=== PATIENT | male | born 1950 | race Caucasian/White ===

== ENCOUNTER 2022-10-01 06:43 | Outpatient (OUT) | payer MEDICARE, SELFPAY ==
--- NOTE | 2022-10-01 07:05 | XR_ITS ---
The [address] [address] Patient Name: CHANTEL BARBER MRN: [id number] date: 1950 Sex: M Assigned Patient Location: LAB Current Patient Location: LAB Accession/Order Number: [id number] Exam Date: 10/01/2022 07:10 Report Date: 10/01/2022 08:50 At the request of: OBI PACHECO Procedure: XR hip LT 2V w/ pelvis PROCEDURE: XR hip LT 2V w/ pelvis HISTORY: Left Hip Pain M25.552 , acute; no known injury COMPARISON: None. FINDINGS: BONES:No fracture, acute abnormality, or significant arthropathy. SOFT TISSUES:No visible soft tissue swelling. EFFUSION:None visible. OTHER: Negative. XR/XR hip LT 2V w/ pelvis IMPRESSION: 1. No acute bone abnormality. 2. Minimal degenerative changes. Electronically authenticated by: ADELA MORRISSEY Date: 10/01/2022 08:50
[2022-10-01 07:06] LABS: Basophils Absolute Auto 0.1 10^3/uL (0.0-0.1); Eosinophils Absolute Auto 0.6 10^3/uL (0.0-0.7); Eosinophils Percent Auto 8.9 % (0.9-7.0); Hemoglobin 14.5 g/dL (14.0-18.0); Immature Granulocytes Abs Auto 0.04 10^3/uL (0.00-0.03); Immature Granulocytes Pct Auto 0.6 % (0.0-0.5); Lymphocytes Absolute Auto 1.3 10^3/uL (1.2-3.8); Lymphocytes Percent Auto 19.9 % (20.5-60.0); Mean Corpuscular HGB Conc 32.2 g/dL (29.9-35.2); Mean Corpuscular Hemoglobin 29.6 pg (25.9-34.0); Mean Corpuscular Volume 91.8 fL (80.0-94.0); Mean Platelet Volume 9.1 fL (9.5-13.5); Monocytes Absolute Auto 0.6 10^3/uL (0.3-0.8); Monocytes Percent Auto 9.1 % (1.7-12.0); Neutrophils Absolute Auto 3.8 10^3/uL (1.4-6.5); Neutrophils Percent Auto 60.5 % (43.0-75.0); Platelet Count 246 10^3/uL (150-450); Red Cell Distribution Width 13.4 % (11.0-15.0); White Blood Count 6.3 10^3/uL (4.0-11.0)
[2022-10-01 07:48] LABS: Anion Gap 11.5; BUN Creatinine Ratio 17.9; Carbon Dioxide 29.7 mmol/L (21.0-32.0); Chloride 105 mmol/L (98-107); Chol HDL Ratio 5.1; Cholesterol 184 mg/dL (<=200); Estimated GFR (African America >60 (>=60); Estimated GFR (Non-African Ame >60 (>=60); Glucose 108 mg/dL (74-106); HDL Cholesterol 36 mg/dL (40-60); Potassium 4.2 mmol/L (3.5-5.1); Sodium 142 mmol/L (136-145); Thyroid Stimulating Hormone 4.106 uIU/mL (0.358-3.740); Triglycerides 172 mg/dL (<=150); VLDL CHOLESTEROL 34.4 mg/dL
== END 2022-10-01 06:44 | disposition home or self-care (01) ==
PROVIDERS: PCP Internal Medicine; Visit Provider Internal Medicine
DX: Z00.00 Encounter for general adult medical examination without abnormal findings (principal); E78.00 Pure hypercholesterolemia, unspecified; E06.3 Autoimmune thyroiditis; Z79.899 Other long term (current) drug therapy; M25.552 Pain in left hip
CPT/HCPCS: 36415; 73502; 80048; 80061; 84443; 85025

== ENCOUNTER 2023-07-15 06:46 | Outpatient (OUT) | payer MEDICARE, SELFPAY ==
[2023-07-15 08:26] LABS: Prostate Specific Antigen Dx 3.64 ng/mL (<=4.00)
== END 2023-07-15 06:47 | disposition home or self-care (01) ==
LOC: LAB 06:47
PROVIDERS: PCP Internal Medicine; Visit Provider Urology
DX: N40.2 Nodular prostate without lower urinary tract symptoms (principal); Z80.42 Family history of malignant neoplasm of prostate; N40.1 Benign prostatic hyperplasia with lower urinary tract symptoms; N52.9 Male erectile dysfunction, unspecified
CPT/HCPCS: 36415; 84153

== ENCOUNTER 2023-09-29 06:56 | Outpatient (OUT) | payer MEDICARE, SELFPAY ==
--- OUTSIDE RECORDS SUMMARY | 2023-09-29 07:00 | XMS_ITS | CCD ---
Author Organization [facility] Care Team Providers Care Helper [employer] [place] Name Role Phone GUILLERMO, DR CROCKER Primary Care Unavailable PALCAIOS ., DR VILLALTA Admitting Unavailable PALACIOS ., DR VILLALTA Attending Unavailable PALACIOS ., DR VILLALTA Consulting Unavailable BALL, DR CROCKER Consulting Unavailable BALL, DR CROCKER Primary Care Unavailable BALL, DR CROCKER Admitting Unavailable BALL, DR CROCKER Attending Unavailable BALL, DR CROCKER Consulting Unavailable BALL, DR CROCKER Primary Care Unavailable BALL, DR CROCKER Admitting Unavailable BALL, DR CROCKER Referring Unavailable BALL, DR CROCKER Attending Unavailable BALL, DR CROCKER Attending Unavailable BALL, DR CROCKER Consulting Unavailable BALL, DR CROCKER Primary Care Unavailable BALL, DR CROCKER Admitting Unavailable GUILLERMO, DAMIR Primary Care Physician [phone] Damir Li Unavailable PREET MINAYA Attending Unavailable PALACIOSStanley Attending Unavailable PALACIOS, Stanley Jama Attending Unavailable Ball Damir ALEXANDER Primary Care Provider [phone] DAMIR LI Primary Care Unavailable Allergies Allergy Classification Reported Allergen(s) Allergy Type Date of Onset Reaction(s) Facility (1 source) house dust allergenic extract Drug Allergy 1 [facility] Repository (4 sources) Dust; Translations: [Dust] Allergy to substance Sneezing (finding) [facility] (4 sources) Glucose; Translations: [glucose] Drug Allergy Sneezing (finding) [facility] Medications Current Medications Medication Drug Class(es) Dates Sig (Normalized) Sig (Original) acetaminophen 325 mg / HYDROcodone bitartrate 7.5 mg oral tablet (1 source) Opioid Agonist Start: 04-18-2022 take 1 tablet by mouth once [place] 325 mg-7.5 mg oral tablet 1 tab(s), Oral, Once, 1 tab(s), Refill(s) 0, Take 1 hour prior to procedure. Don't drive or operate machinery while taking this medication. Have a production truck driver to and from procedure., [id number], 185, cm, 04/18/22 8:40:00 EST, Height/Length Dos... Start Date: 04/18/22 Status: Ordered Albuterol (Eqv-ProAir HFA) 90 mcg/inh inhalation aerosol (3 sources) Start: 06-28-2020 take 2 puff(s) by mouth every six hours as needed Albuterol (Eqv-ProAir HFA) 90 mcg/inh inhalation aerosol INHALE 2 PUFFS BY MOUTH EVERY 6 HOURS NEEDED Start Date: 06/28/20 Status: Ordered Albuterol Sulfate 108 (90 Base) MCG/ACT (5 sources) Start: 11-21-2021 take 2 puff(s) by inhalation every six hours as needed Albuterol Sulfate 108 (90 Base) MCG/ACT 2 puffs as needed inhalation every 6 hours Nov, Active Priyanka Allergy 180 MG (2 sources) Start: 11-04-2022 take 1 tablet by mouth once daily Priyanka Allergy 180 MG 1 tablet Swallow whole with water; do not take with fruit juices. Orally Once a day for 30 days Oct, Active ciprofloxacin 500 mg oral tablet (1 source) Quinolone Antimicrobial Start: 04-18-2022 take 1 tablet by mouth twice daily Cipro 500 mg Tab 500 mg = 1 tab(s), Oral, BID, start 3 days prior to procedure., # 14 tab(s), Refills(s) 0, Pharmacy: [id number], 185, cm, 04/18/22 8:40:00 EST, Height/Length Dosing, 85.7, kg, 04/18/22 8:40:00 EST, Weight Dosing Start Date: 04/18/22 Status: Ordered Fluticasone Propion-Salmeterol (4 sources) Corticosteroid, beta2-Adrenergic Agonist Start: 07-15-2023 Fluticasone Propion-Salmetero l Active 1 INH INHALATION Twice daily July 15, 2023 12:00am Start: 11-04-2022 take 1 puff(s) by in halation twice daily Fluticasone-Salmeterol 250-50 MCG/ACT 1 puff Inhalation Twice a day for 30 days Oct, Active Fluticasone-Salm eterol 250-50 MCG/ACT INHALE 1 DOSE BY MOUTH TWICE DAILY FOR 30 DAYS for 30 Active levothyroxine sodium 0.112 mg oral tablet (15 sources) l-Thyroxine Start: 07-15-2023 take 1 tablet by mouth once daily Levothyroxine (Euthyrox) 112 mcg tablet Active 112 MCG PO Daily July 15, 2023 12:00am Start: 06-30-2022 take 1 tablet by stacy th once daily in the morning Euthyrox 112 MCG 1 tablet in the morning on an empty stomach Orally Once a day June, Active Start: 01-01-2022 take 1 tablet by stacy th once daily as needed Euthyrox 112mcg Euthyrox 112mcg, 1 Tablet daily on an empty stomach # 90, 01/01/2022, Ref. x1. Active oral daily on an empty stomach for 90 Dec, Not-Taking/PRN Start: 01-01-2022 take 1 tablet by stacy th once daily Euthyrox 112mcg Euthyrox 112mcg, 1 Tablet daily on an empty stomach # 90, 01/01/2022, Ref. x1. Active oral daily on an empty stomach for 90 Dec, Not-Taking Start: 10-04-2018 take 1 tablet by stacy th once daily levothyroxine 100 mcg (0.1 mg) Tab 100 microgram = 1 tab(s), Oral, Daily, Refills(s) 0 Start Date: 10/04/18 Status: Ordered take 1 tablet by stacy th once daily before breakfast Levothyroxine 50 MCG tablet Take 1 tablet by mouth every morning before breakfast. Active Levothyroxine So dium 112 MCG TAKE 1 TABLET BY MOUTH ONCE DAILY IN THE MORNING ON AN EMPTY STOMACH Orally Once a day for 90 days Active Multi Vitamin+ (3 sources) Start: 06-28-2020 Multi Vitamin+ Refill(s) 0 Start Date: 06/28/20 Status: Ordered omeprazole 40 mg delayed release oral capsule (16 sources) Proton Pump Inhibitor Start: 09-17-2023 take 1 capsule by mouth once daily at breakfast Omeprazole Active 0 .ROUTE .COMPLEX September 17, 2023 8:51am TAKE 1 CAPSULE BY MOUTH ONCE DAILY ON AN EMPTY STOMACH FOLLOWED IN 30 MINUTES BY BREAKFAST Start: 02-20-2021 End: 09-17-2023 take 40 mg by mouth once daily Omeprazole Discontinued 40 MG PO Daily July 15, 2023 12:00am September 17, 2023 8:51am predniSONE 20 mg oral tablet (3 sources) Start: 11-04-2022 predniSONE 20 MG 1 tablet Orally tid w/ food x 2 days then bid w/ food x 2 days then qd w/ food x 2 days for 6 days Oct, Active Scopolamine Base (1 source) Start: 09-28-2023 Scopolamine Base Active 1 PATCH TRANSDERML Every 72 hours 4 7 September 28, 2023 12:00am tadalafil 20 mg oral tablet (2 sources) Phosphodiesterase 5 Inhibitor Start: 04-18-2022 take 1 tablet by mouth every hour Cialis 20 mg Tab 20 mg = 1 tab(s), Oral, As Directed, Take one hour prior to sexual intercourse., # 30 tab(s), Refills(s) 6, Pharmacy: [id number], 185, cm, 04/18/22 8:40:00 EST, Height/Length Dosing, 85.7, kg, 04/18/22 8:40:00 EST, Weight Dosing Start Date: 04/18/22 Status: Ordered tamsulosin hydrochloride 0.4 mg oral capsule (10 sources) alpha-Adrenergic Vale Start: 01-17-2022 take 0.4 mg by mouth once daily Tamsulosin Active 0.4 MG PO Daily July 15, 2023 12:00am Completed/Discontinued Medications Medication Drug Class(es) Dates Sig (Normalized) Sig (Original) 200 actuat albuterol 0.09 mg/actuat dry powder inhaler (3 sources) beta2-Adrenergic Agonist Start: 07-15-2023 take 1 puff(s) by inhalation every six hours Albuterol Sulfate Active 2 PUFF INHALATION Every 6 hours 8.5 July 15, 2023 12:00am Start: 07-15-2023 End: 07-15-2023 Albuterol Sulfate Discontinu ed 2 INH INHALATION Every 6 hours 1 July 15, 2023 1:11pm July 15, 2023 5:55pm azithromycin 250 mg oral tablet (5 sources) Macrolide Antimicrobial Start: 01-17-2022 take 1 tablet by mouth once daily Azithromycin 250 MG azithromycin 250mg, 2 (two) tablet today followed by 1 daily # 6, 01/17/2022, No Refill. Active Oral today followed by 1 daily for 5 Jan, Not-Taking/PRN bacitracin 0.5 unt/mg topical ointment (1 source) Start: 09-02-2023 End: 09-02-2023 1 Application, Topical, ONCE, 1 dose, On Thu09/02/23 at 2300, Apply to wound with dressing fexofenadine hydrochloride 180 mg oral tablet (2 sources) Histamine-1 Receptor Antagonist Start: 07-15-2023 End: 09-28-2023 take 180 mg by mouth once daily Fexofenadine Discontinued 180 MG PO Daily July 15, 2023 12:00am September 28, 2023 8:41am Start: 11-04-2022 take 1 tablet by mouth once da marli Priyanka Allergy 180 MG 1 tablet Swallow whole with water; do not take with fruit juices. Orally Once a day for 30 days Oct, Active fluticasone propionate 0.05 mg/actuat metered dose nasal spray (4 sources) Corticosteroid Start: 07-15-2023 End: 09-28-2023 Fluticasone Propionate Discontinued 1 SPRAY INTRANASAL Daily July 15, 2023 12:00am September 28, 2023 8:41am Start: 11-04-2022 take 1 spray(s) nasa l route once daily Fluticasone Propionate 50 MCG/ACT 1 spray in each nostril Nasally Once a day for 30 days Oct, Active Start: 11-04-2022 take 1 spray(s) nasa l route once daily Fluticasone Propionate 50 MCG/ACT 1 spray in each nostril Nasally Once a day for 30 days Oct, Active Problems Problem Classification Problem Date Documented Da te Episodic/Chronic Asthma (17 sources) Mild intermittent asthma, uncomplicated; Translations: [Mild intermittent asthma] Chronic Disorders of lipid metabolism (9 sources) Pure hypercholesterolemi a, unspecified; Translations: [Hypercholesterolem ia] Onset: 11-14-2021 Chronic Esophageal disorders (4 sources) Gastro-esophageal reflux disease with esophagitis; Translations: [Gastro-esophageal reflux disease with esophagitis, without bleeding] 2023 Chronic Esophageal disorders (4 sources) Esophageal disorders; Translations: [Gastro-esophageal reflux disease with esophagitis, without bleeding] Genitourinary symptoms and ill-defined conditions (11 sources) Retention of urine; Translations: [Retention of urine, unspecified] Onset: 04-18-2022 Episodic Hyperplasia of prostate (20 sources) Benign prostatic hyperplasia with lower urinary tract symptoms; Translations: [Benign prostatic hypertrophy with outflow obstruction] Onset: 04-12-2022 Chronic Inflammatory conditions of male genital organs (3 sources) Chronic prostatitis 03-16-2020 Chronic Open wounds of extremities (3 sources) Laceration of lower limb; Translations: [Laceration without foreign body, left lower leg, initial encounter] Onset: 09-02-2023 09-02-2023 Episodic Other aftercare (2 sources) Other watermaster (current) drug therapy; Translations: [OTH PODIATRIC AIDE CURRENT DRUG THERAPY] Onset: 2021 Episodic Other and unspecified benign neoplasm (5 sources) Benign neoplasm of colon; Translations: [Benign neoplasm of descending colon] Episodic Other ear and sense organ disorders (1 source) Tinnitus; Translations: [Tinnitus, unspecified ear] 09-28-2023 Episodic Other ear and sense organ disorders (1 source) Tinnitus, unspecified ear; Translations: [Tinnitus, unspecified] 09-28-2023 Episodic Other gastrointestinal disorders (3 sources) Chronic constipation 02-20-2021 Episodic Other gastrointestinal disorders (3 sources) Hyperplastic polyp of intestine 09-06-2020 Episodic Other male genital disorders (6 sources) Male erectile dysfunction, unspecified; Translations: [Erectile dysfunction] Onset: 04-18-2022 Chronic Other male genital disorders (3 sources) Pain in penis 10-04-2018 Chronic Other male genital disorders (3 sources) Spermatocele 03-16-2020 Episodic Other nervous system disorders (1 source) Polyneuropathy; Translations: [Polyneuropathy, unspecified] 2023 Chronic Other nervous system disorders (1 source) Polyneuropathy, unspecified; Translations: [Unspecified hereditary and idiopathic peripheral neuropathy] 09-28-2023 Chronic Other non-traumatic joint disorders (1 source) Pain in left hip Episodic Other nutritional; endocrine; and metabolic disorders (3 sources) Body mass index 25-29 - overweight 06-28-2020 Episodic Other screening for suspected conditions (not mental disorders or infectious disease) (6 sources) Other specified abnormal findings of blood chemistry; Translations: [Raised prostate specific antigen] Onset: 11-13-2021 Episodic Other upper respiratory disease (3 sources) Allergic rhinitis due to pollen; Translations: [Allergic rhinitis due to pollen] Chronic Other upper respiratory disease (1 source) Allergic rhinitis due to pollen Chronic Residual codes; unclassified (1 source) Family history of malignant neoplasm of prostate; Translations: [FAMILY HX MALIG NEOPLASM PROSTATE] Onset: 04-16-2022 Episodic Residual codes; unclassified (3 sources) Family history of cancer; Translations: [Family history of malignant neoplasm of prostate] Onset: 04-18-2022 Episodic Residual codes; unclassified (3 sources) Family history of prostate cancer 04-18-2022 Episodic Thyroid disorders (20 sources) Autoimmune thyroiditis; Translations: [Hypothyroidism] Onset: 01-01-2022 Chronic Unclassified (3 sources) Finding of sensation of bladder 02-20-2021 Unclassified (3 sources) Patient encounter status 06-28-2020 Viral infection (3 sources) Herpes zoster 02-20-2021 Episodic Results Test Name Value Interpretation Reference Range Facility Ambulatory Visit Summaryon 0 07-20-2023 Ambulatory Visit Summary CHANTEL BARBER :1950 Visit Date:07/20/2023 Ambulatory Visit Instructions Your Diagnosis Elevated PSA Prostate nodule Family history of prostate cancer Benign prostatic hypertrophy with outflow obstruction Erectile dysfunction Your Care Team Attending Physician - Stanley PALACIOS MD Primary Care Physician - GUILLERMO ALEXANDER, DAMIR This Is Your Medications List tamsulosin (tamsulosin 0.4 mg Cap) Contact prescribing physician if questions or concerns albuterol (Albuterol (Eqv-ProAir HFA) 90 mcg/inh inhalation aerosol) levothyroxine (levothyroxine 100 mcg (0.1 mg) Tab) multivitamin (Multi Vitamin+) omeprazole (omeprazole 40 mg Cap-DR) Procedures Performed Transrectal biopsy of prostate using ultrasound (US) guidance (05/13/2022), Cystoscopy (01/09/2014), TURP - Transurethral resection of prostate (07/31/2011), Urodynamics (04/17/2011), Cystoscopy (03/21/2011), Tonsillectomy. Discharge Vitals Heart Rate (Peripheral) 72 Respiratory Rate 16 Blood Pressure 132/89 Height 185 cm Height 73 in Weight 88.6 kg Weight 194.92 lb BMI 25.89 What to do next Scheduled Follow-Up Appointments Thursday 8:45 AM EDT With: Stanley PALACIOS MD Where: [facility] [place] Normal [facility] Patient Educationon 07-20-19 24 Patient Education Oncology Prostate Cancer Screening Prostate cancer screening is testing that is done to check for the presence of prostate cancer in men. The prostate gland is a walnut-sized gland that is located below the bladder and in front of the rectum in males. The function of the prostate is to add fluid to semen during ejaculation. Prostate cancer is one of the most common types of cancer in men. Who should have prostate cancer screening? Screening recommendations vary based on age and other risk factors, as well as between the professional organizations who make the recommendations. In general, screening is recommended if: ? You are age 50 to 70 and have an average risk for prostate cancer. You should talk with your health care provider about your need for screening and how often screening should be done. Because most prostate cancers are slow growing and will not cause , screening in this age group is generally reserved for men who have a 10- to 15-year life expectancy. ? You are younger than age 50, and you have these risk factors: ? Having a father, brother, or uncle who has been diagnosed with prostate cancer. The risk is higher if your family member's cancer occurred at an early age or if you have multiple family members with prostate cancer at an early age. ? Being a male who is Black or is of [place] or sub-Saharan descent. In general, screening is not recommended if: ? You are younger than age 40. ? You are between the ages of 40 and 49 and you have no risk factors. ? You are 70 years of age or older. At this age, the risks that screening can cause are greater than the benefits that it may provide. If you are at high risk for prostate cancer, your health care provider may recommend that you have screenings more often or that you start screening at a younger age. How is screening for prostate cancer done? The recommended prostate cancer screening test is a blood test called the prostate-specific antigen (PSA) test. PSA is a protein that is made in the prostate. As you age, your prostate naturally produces more PSA. Abnormally high PSA levels may be caused by: ? Prostate cancer. ? An enlarged prostate that is not caused by cancer (benign prostatic hyperplasia, or BPH). This condition is very common in older men. ? A prostate gland infection (prostatitis) or urinary tract infection. ? Certain medicines such as male hormones (like testosterone) or other medicines that raise testosterone levels. A rectal exam may be done as part of prostate cancer screening to help provide information about the size of your prostate gland. When a rectal exam is performed, it should be done after the PSA level is drawn to avoid any effect on the results. Depending on the PSA results, you may need more tests, such as: ? A physical exam to check the size of your prostate gland, if not done as part of screening. ? Blood and imaging tests. ? A procedure to remove tissue samples from your prostate gland for testing (biopsy). This is the only way to know for certain if you have prostate cancer. What are the benefits of prostate cancer screening? ? Screening can help to identify cancer at an early stage, before symptoms start and when the cancer can be treated more easily. ? There is a small chance that screening may lower your risk of dying from prostate cancer. The chance is small because prostate cancer is a slow-growing cancer, and most men with prostate cancer from a different cause. What are the risks of prostate cancer screening? The main risk of prostate cancer screening is diagnosing and treating prostate cancer that would never have caused any symptoms or problems. This is called overdiagnosisand overtreatment. PSA screening cannot tell you if your PSA is high due to cancer or a different cause. A prostate biopsy is the only procedure to diagnose prostate cancer. Even the results of a biopsy may not tell you if your cancer needs to be treated. Slow-growing prostate cancer may not need any treatment other than monitoring, so diagnosing and treating it may cause unnecessary stress or other side effects. Questions to ask your health care provider ? When should I start prostate cancer screening? ? What is my risk for prostate cancer? ? How often do I need screening? ? What type of screening tests do I need? ? How do I get my test results? ? What do my results mean? ? Do I need treatment? Where to find more information ? The [place] [employer]: www.cancer.org ? [employer]: www.auanet.org Contact a health care provider if: ? You have difficulty urinating. ? You have pain when you urinate or ejaculate. ? You have blood in your urine or semen. ? You have pain in your back or in the area of your prostate. Summary ? Prostate cancer is a common type of cancer in men. The prostate gland is located below the bladder and in front of the rectum. This gland adds flu (more content not included)... Normal [facility] Reminderson 07-20-2023 Reminders - From: Paulina Colvin To: MELISSA Palacios; Sent: 07/20/2023 10:30:51 EDT Show up: 01/19/2024 09:30:00 EST Subject: PSA Reminder Message Pt needs repeat PSA in 6 mos (no OV). -If still elevated, will need to consider PSMA PET scan. Otherwise can f/u in 1 year w/ another PSA. Normal [facility] Urology Office/Clinic Noteon 07-20-2023 Urology Office/Clinic Note Chief Complaint 1yr PSA/LUCIE HPI Staff 1 year f/u with PSA. Dx: prostate nodule, family hx of prostate cancer (brother), BPH with obstruction and ED. PSA- 07/15/23 - 3.64 Negative TRUS Bx done 05/13/22 * Tamsulosin 0.4mg qd. Stopped taking Cialis. States he just stopped . Believes it was causing indigestion. Not interested in any other ED meds. Denies pain/burning and visible blood in urine. Denies complaints with urinary stream. History of Present Illness Tests reviewed: reviewed UA, PSA I have reviewed the previous health record information and history for this patient from Dr. Palacios. I have reviewed and verified the staff HPI to be accurate for this encounter. Review of Systems PHQ Score Initial Depression Screen Score: 0 SCORE ROS - Provider Constitutional: denies weight loss, denies hot flashes. Eyes: denies eye problems. Gastrointestinal: denies nausea, denies vomiting. Cardiovascular: denies chest pain or angina. Integumentary: no dryness Musculoskeletal: denies musculoskeletal symptoms. ENMT: denies otolaryngeal symptoms. Respiratory: no shortness of breath. Heme/Lymph: denies easy bleeding tendency, denies easy bruising tendency. Psychiatric: no confusion, no anxiety. Genitourinary: See HPI. Physical Exam Vitals & Measurements HR: 72(Peripheral) RR: 16 BP: 132/89 HT: 73 in HT: 185 cm WT: 88.6 kg WT: 194.92 lb BMI: 25.89 General Appearance: alert, no distress, well nourished, well developed male. Genitourinary: normal scrotum, normal testes, normal urethra, normal epididymis, normal vas deferens/spermatic cord. Flank Pain: none. Bladder: nonpalpable. Prostate: abnormal prostate, estimated weight 45 gms, yes hard nodule observed - indurated on right mid to base Assessment/Plan 1. Elevated PSA (R97.20: Elevated prostate specific antigen [PSA]) LUCIE 04/18/22 - indurated right side, larger than left. S/P TRUS/bx 05/13/22 - neg. PSA 02/07/20 - 2.69 04/05/21 - 2.98 04/12/22 - 2.86 07/15/23 - 3.64 LUCIE: 45g, indurated on right mid to base PSA has increased from prior but had a negative biopsy last year. Denies ever having a prostate MRI (pt is claustrophobic). Advised pt we will continue to monitor level for now. -6 mos w/ PSA. Will call pt with results. -If PSA increases again, will consider PSMA PET/CT scan. Otherwise f/u in 1 year w/ PSA. 2. Prostate nodule (N40.2: Nodular prostate without lower urinary tract symptoms) See #1. 3. Family history of prostate cancer (Z80.42: Family history of malignant neoplasm of prostate) Brother had prostate cancer 10 yrs ago, prostatectomy surgery. 4. Benign prostatic hypertrophy with outflow obstruction (N40.1: Benign prostatic hyperplasia with lower urinary tract symptoms) S/p TURP 2011. UA today negative for blood and infection. Taking Tamsulosin 0.4mg qd. Denies SEs. Not voicing any urinary habit complaints. -Cont Tamsulosin wo changes. Pt to call for refills. 5. Erectile dysfunction (N52.9: Male erectile dysfunction, unspecified) Stopped using Cialis 20mg prn Follow-up With When Contact Information RAMÓN HARDING, Stanley Jama, URL [facility] [address], [place] [id number]- [phone] Additional Instructions: repeat PSA in 6 mos (no OV), f/u in 1 year w/ repeat PSA Patient Education Prostate Cancer Screening I, Paulina Colvin, personally scribed for Dr. Palacios on 07/20/2023 10:28:11. . Documentation recorded by the scribe, Paulina Colvin, accurately reflects the services(s) I performed and decisions made by me. Authenticated by Dr. Palacios on 07/20/2023 10:31:12. Problem List/Past Medical History Ongoing Benign prostatic hypertrophy with outflow obstruction BMI 25.0-25.9,adult Chronic constipation Chronic prostatitis Elevated PSA Erectile dysfunction Family history of prostate cancer Feeling of incomplete bladder emptying Hyperplastic polyp of sigmoid colon Hypothyroidism Microscopic hematuria Penile pain Prostate nodule Screening for malignant neoplasm of colon Shingles Spermatocele Urinary retention Weak urine stream Historical No qualifying data Procedure/Surgical History Transrectal biopsy of prostate using ultrasound (US) guidance (05/13/2022), Cystoscopy (01/09/2014), TURP - Transurethral resection of prostate (07/31/2011), Urodynamics (04/17/2011), Cystoscopy (03/21/2011), Tonsillectomy. Medications Albuterol (Eqv-ProAir HFA) 90 mcg/inh inhalation aerosol levothyroxine 100 mcg (0.1 mg) Tab, 100 mcg= 1 tab(s), Oral, Daily Multi Vitamin+ omeprazole 40 mg Cap-DR, Oral, Daily tamsulosin 0.4 mg Cap, 0.4 mg= 1 cap(s), Oral, Daily, 3 refills Allergies Dust (Sneezing) SugarUp (Sneezing) Social History Alcohol Current, 1-2 times per year, 10/04/2018 Tobacco Never (less than 100 in lifetime) Tobacco Use:. Never Smokeless Tobacco Use:., 04/15/2021 Family History Cancer: Mother and Brother. Heart (more content not included)... Normal [facility] Comment on above: Result Comment: Elec tronically Signed By: Stanley PALACIOS MD.br\Date and Time Signed: 07/20/23 10:31 EDT\.br\Electronically Co-Signed By: Paulina Colvinbr\Date and Time Co-Signed: 07/20/23 10:28 EDT Lab Reportson 07-15-2023 Lab Reports [id number] Normal [facility] No Panel Informationon 07-14 Prostate Specific Antigen Total 3.64 ng/mL <=4.00 [facility] FREE T4on 01-01-2022 Free T4 [Mass/Vol] 0.98 ng/dL Normal 0.76-1.46 [facility] Comment on above: Performed By: #### F T4 #### [facility] [address] [place] [address] Dr. Sylvia Calix TSHon 01-01-2022 TSH 6.797 uIU/mL Critically high 0.358-3.740 [facility] Comment on above: Performed By: #### T SH #### [facility] [address] [place] [address] Dr. Sylvia Calix LIPID PROFILEon 11-13-2021 CHOL-HDL RATIO NORM SEE BELOW Normal [facility] Comment on above: Result Comment: 3.3 - 4.4 LOW RISK 4.4 - 7.1 AVERAGE RISK 7.1 - 11.0 MODERATE RISK >11.0 HIGH RISK Performed By: #### L IPID #### [facility] [address] [place] [address] Dr. Sylvia Calix Cholesterol [Mass/Vol] 199 mg/dL Normal <=200 [facility] Comment on above: Performed By: #### L IPID #### [facility] [address] [place] [address] Dr. Sylvia Calix Cholesterol in HDL [Mass/Vol] 37 mg/dL Critically low 40-60 [facility] Comment on above: Performed By: #### L IPID #### [facility] [address] [place] [address] Dr. Sylvia Calix Cholesterol in LDL [Mass/Vol] 127.6 mg/dL Normal [facility] Comment on above: Performed By: #### L IPID #### [facility] [address] [address] [address] Sylvia Calix Cholesterol.total/C holesterol in HDL [Mass ratio] 5.4 {ratio} Normal [facility] Comment on above: Performed By: #### L IPID #### [facility] [address] [address] [address] Sylvia Calix HDL NORMAL > or = 60 mg/dl - LO W CARDIOVASCULAR RISK <40 mg/dl - HIGH CARDIOVASCULAR RISK Normal [facility] Comment on above: Performed By: #### L IPID #### [facility] [address] [place] [address] Dr. Sylvia Calix LDL CALC NORMAL SEE BELOW Normal [facility] Comment on above: Result Comment: <100 mg/dl OPTIMAL 100 - 129 mg/dl NEAR OR ABOVE OPTIMAL 130 - 159 mg/dl BORDERLINE HIGH 160 - 189 mg/dl HIGH >190 mg/dl VERY HIGH Performed By: #### L IPID #### [facility] [address] [place] [address] Dr. Sylvia Calix Triglyceride [Mass/Vol] 172 mg/dL Critically high <=150 [facility] Comment on above: Performed By: #### L IPID #### [facility] [address] [place] [address] Dr. Sylvia Calix VLDL CALC 34.4 mg/dL Normal [facility] Comment on above: Performed By: #### L IPID #### [facility] [address] [place] [address] Dr. Sylvia Calix TSHon 11-13-2021 TSH 9.004 uIU/mL Critically high 0.358-3.740 [facility] Comment on above: Performed By: #### T SH #### [facility] [address] [place] [address] Dr. Sylvia Calix CBC AUTO DIFFon 09-25-2021 BASO # 0.1 103/ul Normal 0.0-0.1 [facility] Comment on above: Performed By: #### C BC #### [facility] [address] [address] [address] Sylvia Calix Basophils/100 WBC (Bld) 1.0 % Normal 0.2-2.0 [facility] Comment on above: Performed By: #### C BC #### [facility] [address] [place] [address] Dr. Sylvia Calix EO # 0.5 103/ul Normal 0.0-0.7 [facility] Comment on above: Performed By: #### C BC #### [facility] [address] [place] [address] Dr. Sylvia Calix Eosinophils/100 WBC (Bld) 7.3 % Critically high 0.9-7.0 [facility] Comment on above: Performed By: #### C BC #### [facility] [address] [place] [address] Dr. Sylvia Calix Erythrocyte distribution width (RBC) [Ratio] 13.4 % Normal 11.0-15.0 [facility] Comment on above: Performed By: #### C BC #### [facility] [address] [place] [address] Dr. Sylvia Calix Hematocrit (Bld) [Volume fraction] 45.9 % Normal 42.0-54.0 [facility] Comment on above: Performed By: #### C BC #### [facility] [address] [place] [address] Dr. Sylvia Calix Hemoglobin (Bld) [Mass/Vol] 15.0 g/dL Normal 14.0-18.0 [facility] Comment on above: Performed By: #### C BC #### [facility] [address] [place] [address] Dr. Sylvia Calix IG # 0.04 10e3/ul Critically high 0.00-0.03 [facility] Comment on above: Performed By: #### C BC #### [facility] [address] [place] [address] Dr. Sylvia Calix IG % 0.6 % Critically high 0.0-0.5 [facility] Comment on above: Performed By: #### C BC #### [facility] [address] [place] [address] Dr. Sylvia Calix LYMPH # 1.5 103/ul Normal 1.2-3.8 [facility] Comment on above: Performed By: #### C BC #### [facility] [address] [place] [address] Dr. Sylvia Calix Lymphocytes/100 WBC (Bld) 24.3 % Normal 20.5-60.0 [facility] Comment on above: Performed By: #### C BC #### [facility] [address] [place] [address] Dr. Sylvia Calix MANUAL DIFF REQ NO Normal [facility] Comment on above: Performed By: #### C BC #### [facility] [address] [place] [address] Dr. Sylvia Calix MCH (RBC) [Entitic mass] 30.4 pg Normal 25.9-34.0 [facility] Comment on above: Performed By: #### C BC #### [facility] [address] [place] [address] Dr. Sylvia Calix MCHC (RBC) [Mass/Vol] 32.7 g/dL Normal 29.9-35.2 [facility] Comment on above: Performed By: #### C BC #### [facility] [address] [place] [address] Dr. Sylvia Calix MCV (RBC) [Entitic vol] 93.1 fL Normal 80.0-94.0 [facility] Comment on above: Performed By: #### C BC #### [facility] [address] [place] [address] Dr. Sylvia Calix MONO # 0.5 103/ul Normal 0.3-0.8 [facility] Comment on above: Performed By: #### C BC #### [facility] [address] [place] [address] Dr. Sylvia Calix Monocytes/100 WBC (Bld) 7.8 % Normal 1.7-12.0 [facility] Comment on above: Performed By: #### C BC #### [facility] [address] [address] [address] Sylvia Calix NEUT # 3.7 103/ul Normal 1.4-6.5 [facility] Comment on above: Performed By: #### C BC #### [facility] [address] [address] [address] Sylvia Calix Neutrophils/100 WBC (Bld) 59.0 % Normal 43.0-75.0 [facility] Comment on above: Performed By: #### C BC #### [facility] [address] [address] [address] Sylvia Calix Platelet mean volume (Bld) [Entitic vol] 9.3 fL Critically low 9.5-13.5 [facility] Comment on above: Performed By: #### C BC #### [facility] [address] [place] [address] Dr. Sylvia Calix PLT 244 103/ul Normal 150-450 [facility] Comment on above: Performed By: #### C BC #### [facility] [address] [place] [address] Dr. Sylvia Calix RBC 4.93 106/ul Normal 4.70-6.10 [facility] Comment on above: Performed By: #### C BC #### [facility] [address] [place] [address] Dr. Sylvia Calix WBC 6.3 103/ul Normal 4.0-11.0 [facility] Comment on above: Performed By: #### C BC #### [facility] [address] [place] [address] Dr. Sylvia Calix LIPID PROFILEon 09-25-2021 CHOL-HDL RATIO NORM SEE BELOW Normal [facility] Comment on above: Result Comment: 3.3 - 4.4 LOW RISK 4.4 - 7.1 AVERAGE RISK 7.1 - 11.0 MODERATE RISK >11.0 HIGH RISK Performed By: #### L IPID, TSH, BMP #### [facility] [address] [place] [address] Dr. Sylvai Calix Cholesterol [Mass/Vol] 198 mg/dL Normal <=200 [facility] Comment on above: Performed By: #### L IPID, TSH, BMP #### [facility] [address] [address] [address] Sylvia Calix Cholesterol in HDL [Mass/Vol] 34 mg/dL Critically low 40-60 [facility] Comment on above: Performed By: #### L IPID, TSH, BMP #### [facility] [address] [address] [address] Sylvia Calix Cholesterol in LDL [Mass/Vol] 132.0 mg/dL Normal [facility] Comment on above: Performed By: #### L IPID, TSH, BMP #### [facility] [address] [address] [address] Sylvia Calix Cholesterol.total/C holesterol in HDL [Mass ratio] 5.8 {ratio} Normal [facility] Comment on above: Performed By: #### L IPID, TSH, BMP #### [facility] [address] [address] [address] Sylvia Calix HDL NORMAL > or = 60 mg/dl - LO W CARDIOVASCULAR RISK <40 mg/dl - HIGH CARDIOVASCULAR RISK Normal [facility] Comment on above: Performed By: #### L IPID, TSH, BMP #### [facility] [address] [address] [address] Sylvia Calix LDL CALC NORMAL SEE BELOW Normal [facility] Comment on above: Result Comment: <100 mg/dl OPTIMAL 100 - 129 mg/dl NEAR OR ABOVE OPTIMAL 130 - 159 mg/dl BORDERLINE HIGH 160 - 189 mg/dl HIGH >190 mg/dl VERY HIGH Performed By: #### L IPID, TSH, BMP #### [facility] [address] [address] [address] Sylvia Calix Triglyceride [Mass/Vol] 160 mg/dL Critically high <=150 [facility] Comment on above: Performed By: #### L IPID, TSH, BMP #### [facility] [address] [address] [address] Sylvia Calix VLDL CALC 32.0 mg/dL Normal [facility] Comment on above: Performed By: #### L IPID, TSH, BMP #### [facility] [address] [place] [address] Dr. Sylvia Calix PROF CHEM 8 (BAS METB)on Anion gap [Moles/Vol] 13.8 mmol/L Normal [facility] Comment on above: Performed By: #### L IPID, TSH, BMP #### [facility] [address] [place] [address] Dr. Sylvia Calix Calcium [Mass/Vol] 9.0 mg/dL Normal 8.5-10.1 [facility] Comment on above: Performed By: #### L IPID, TSH, BMP #### [facility] [address] [place] [address] Dr. Sylvia Calix Chloride [Moles/Vol] 106 mmol/L Normal 98-107 [facility] Comment on above: Performed By: #### L IPID, TSH, BMP #### [facility] [address] [place] [address] Dr. Sylvia Calix CO2 [Moles/Vol] 27.6 mmol/L Normal 21.0-32.0 [facility] Comment on above: Performed By: #### L IPID, TSH, BMP #### [facility] [address] [place] [address] Dr. Sylvia Calix Creatinine [Mass/Vol] 1.15 mg/dL Normal 0.70-1.30 [facility] Comment on above: Performed By: #### L IPID, TSH, BMP #### [facility] [address] [place] [address] Dr. Sylvia Calix EGFR-AF IRAQI >60 Normal >=60 [facility] Comment on above: Performed By: #### L IPID, TSH, BMP #### [facility] [address] [place] [address] Dr. Sylvia Calix EGFR-NON AF IRAQI >60 Normal >=60 [facility] Comment on above: Performed By: #### L IPID, TSH, BMP #### [facility] [address] [place] [address] Dr. Sylvia Calix Glucose [Mass/Vol] 103 mg/dL Normal 74-106 [facility] Comment on above: Performed By: #### L IPID, TSH, BMP #### [facility] [address] [place] [address] Dr. Sylvia Calix Potassium [Moles/Vol] 4.4 mmol/L Normal 3.5-5.1 [facility] Comment on above: Performed By: #### L IPID, TSH, BMP #### [facility] [address] [place] [address] Dr. Sylvia Calix Sodium [Moles/Vol] 143 mmol/L Normal 136-145 [facility] Comment on above: Performed By: #### L IPID, TSH, BMP #### [facility] [address] [place] [address] Dr. Sylvia Calix Urea nitrogen [Mass/Vol] 20.0 mg/dL Critically high 7.0-18.0 [facility] Comment on above: Performed By: #### L IPID, TSH, BMP #### [facility] [address] [place] [address] Dr. Sylvia Calix Urea nitrogen/Creatinine [Mass ratio] 17.4 mg/mg Normal [facility] Comment on above: Performed By: #### L IPID, TSH, BMP #### [facility] [address] [place] [address] Dr. Sylvia Claix TSHon 09-25-2021 TSH 6.272 uIU/mL Critically high 0.358-3.740 [facility] Comment on above: Performed By: #### L IPID, TSH, BMP #### [facility] [address] [place] [address] Dr. Sylvia Calix Vital Signs Date Time Vital Sign Value Performing Clinician Facility 09-28-2023 08:43-0400 Diastolic blood pressure 81 mm[Hg] [facility] 09-28-2023 08:43-0400 Heart rate 59 /min [facility] 09-28-2023 08:43-0400 Respiratory rate 12 /min [facility] 09-28-2023 08:43-0400 Systolic blood pressure 124 mm[Hg] [facility] 09-02-2023 22:05-0400 Body temperature 97.9 [degF] Damir Ball DO Work Phone: [facility] 09-02-2023 22:05-0400 Diastolic blood pressure 93 mm[Hg] Damir Ball DO Work Phone: [facility] 09-02-2023 22:05-0400 Heart rate 71 /min Damir Ball DO Work Phone: [facility] 09-02-2023 22:05-0400 Respiratory rate 17 /min Damir Ball DO Work Phone: [facility] 09-02-2023 22:05-0400 SaO2% (BldA) [Mass fraction] 98 % Damir Ball DO Work Phone: [facility] 09-02-2023 22:05-0400 Systolic blood pressure 177 mm[Hg] Damir Ball DO Work Phone: [facility] 09-02-2023 22:02-0400 Body height 185.4 cm Damir Ball DO Work Phone: [facility] 09-02-2023 22:02-0400 Body mass index (BMI) [Ratio] 25.73 kg/m2 Damir Ball DO Work Phone: [facility] 09-02-2023 22:02-0400 Body weight 88.45 kg Damir Ball DO Work Phone: [facility] 07-20-2023 09:57-0400 Blood Pressure Location Stanley PALACIOS [facility] 07-20-2023 09:57-0400 Diastolic blood pressure 89 mm[Hg] Stanley PALACIOS [facility] 07-20-2023 09:57-0400 Heart rate 72 /min Stanley PALACIOS [facility] 07-20-2023 09:57-0400 Respiratory rate 16 /min Stanley PALACIOS [facility] 07-20-2023 09:57-0400 Systolic blood pressure 132 mm[Hg] Stanley PALACIOS [facility] 11-04-2022 08:45-0400 Body height 185.42 cm Damir Ball Other [employer] Other 11-04-2022 08:45-0400 Body mass index (BMI) [Ratio] 25.49 kg/m2 Damir Ball Other [employer] Other 11-04-2022 08:45-0400 Body weight 87.64 kg Damir Ball Other [employer] Other 11-04-2022 08:45-0400 Diastolic blood pressure 87 mm[Hg] Damir Ball Other [employer] Other 11-04-2022 08:45-0400 Respiratory rate 12 /min Damir Ball Other [employer] Other 11-04-2022 08:45-0400 SaO2% (BldA) [Mass fraction] 96 % Damir Ball Other [employer] Other 11-04-2022 08:45-0400 Systolic blood pressure 148 mm[Hg] Damir Ball Other [employer] Other 09-24-2022 14:00-0400 Body height 185.42 cm Damir Ball Other [employer] Other 09-24-2022 14:00-0400 Body mass index (BMI) [Ratio] 25.59 kg/m2 Damir Ball Other [employer] Other 09-24-2022 14:00-0400 Body weight 88 kg Damir Li Other [facility] [employer] Other 09-24-2022 14:00-0400 Diastolic blood pressure 90 mm[Hg] Damir Li Other [facility] [employer] Other 09-24-2022 14:00-0400 Systolic blood pressure 133 mm[Hg] Damir Li Other [facility] [employer] Other 05-30-2022 09:20-0400 Blood Pressure Location Stanley PALACIOS [facility] 05-30-2022 09:20-0400 Diastolic blood pressure 80 mm[Hg] Stanley PALACIOS [facility] 05-30-2022 09:20-0400 Heart rate 71 /min Stanley PALACIOS [facility] 05-30-2022 09:20-0400 Respiratory rate 16 /min Stanley PALACIOS [facility] 05-30-2022 09:20-0400 Systolic blood pressure 122 mm[Hg] Stanley PALACIOS [facility] 04-18-2022 08:33-0500 Blood Pressure Location Stanley PALACIOS [facility] 04-18-2022 08:33-0500 Diastolic blood pressure 81 mm[Hg] Stanley PALACIOS [facility] 04-18-2022 08:33-0500 Heart rate 72 /min Stanley PALACIOS [facility] 04-18-2022 08:33-0500 Respiratory rate 16 /min Stanley PALACIOS [facility] 04-18-2022 08:33-0500 Systolic blood pressure 128 mm[Hg] Stanley PALACIOS [facility] Encounters Encounter Date Encounter Type Care Provider Facility Start: 07-25-2024 ambulatory Stanley PALACIOS Facili ty:[facility] Start: 09-28-2023 End: 09-28-2023 ambulatory [facility] Work Phone: Start: 09-28-2023 End: 09-28-2023 Patient encounter procedure [facility] Work Phone: Start: 09-02-2023 End: 09-02-2023 Emergency department patient visit DAMIR LI [facility] Start: 07-20-2023 End: 07-20-2023 ambulatory Stanley PALACIOS Facility:[facility] Start: 07-20-2023 End: 07-20-2023 Patient encounter procedure Stanley PALACIOS [facility] Start: 07-15-2023 Non-patient / Non-visit [facility] Work Phone: Start: 05-19-2023 End: 05-19-2023 ambulatory PREET MINAYA Not Available Start: 03-23-2023 End: 03-23-2023 ambulatory Damir Li Other [employer] Other Start: 03-23-2023 Telephone encounter Damir [facility] Start: 12-26-2022 End: 12-26-2022 ambulatory Damir Li Other [employer] Other Start: 12-26-2022 Telephone encounter Damir [facility] Start: 11-04-2022 End: 11-04-2022 ambulatory Damir Li Other [employer] Other Start: 11-04-2022 Office outpatient vi sit 15 minutes Damir Li [facility] Start: 10-02-2022 End: 10-02-2022 ambulatory Damir Li Other [employer] Other Start: 10-02-2022 Telephone encounter Damir Li [facility] Start: 09-24-2022 End: 09-24-2022 ambulatory Damir Guillermo Other [employer] Other Start: 09-24-2022 Patient encounter procedure Damir Li [facility] Start: 05-30-2022 End: 05-30-2022 Patient encounter procedure Stanley PALACIOS [facility] Start: 04-18-2022 End: 04-18-2022 Patient encounter procedure Stanley PALACIOS [facility] Start: 04-12-2022 End: 04-13-[address] DAMIR LI Facility:[facility] Start: 01-01-2022 End: 01-02-[address] DAMIR LI Facility:[facility] Start: 11-13-2021 End: 11-14-[address] DAMIR LI Facility:[facility] Start: 09-25-2021 End: [address] DAMIR LI Facility:[facility] Procedures Date Procedure Procedure Detail Performing Clinician Start: 05-13-2022 Transrectal biopsy o f prostate using ultrasound guidance Stanley PALACIOS Start: 04-12-[address] MITCHELL IN [place] Comment on above: Performed By: #### P SAD #### [facility] [address] [place] [address] Dr. Sylvia Calix Start: 01-09-2014 Cystoscopy Stanley LANDON Start: 07-31-2011 Transurethral prostatectomy Stanley PALACIOS Start: 04-17-2011 Urodynamic studies Sarahana camarillochencho RAMÓN Start: 03-21-2011 Cystoscopy Stanley JEFF LANDON Tonsillectomy Stanley RAMÓN Plan of Treatment Date Care Activity Detail Author Start: 09-01-2033 Tetanus vaccination TETANUS [facility] Start: 10-18-2023 Influenza vaccination INFLUENZA VACC INE (#1) [facility] Start: 10-17-2022 COVID-19 VACCINE ( season) COVID-19 VACCINE ( season) [facility] Start: 03-31-2014 Screening for malign ant neoplasm of colon COLORECTAL CANCER SCREENING DISCUSSION [facility] Start: 09-25-2001 Prostate specific an tigen measurement PROSTATE CANCER SCREENING DISCUSSION [facility] Start: 09-25-2001 Zoster vaccine hzv l savanah for subcutaneous use ZOSTER (SHINGLES) VACCINE (1 of 2) [facility] Start: 1991 Lipid panel LIPID SCREENING [facility] Start: 1950 Hepatitis C screening HEPATITI S C VIRUS SCREENING [facility] Start: 1950 Thyroid stimulating hormone measurement TSH [facility] Comprehensive metabo lic 2000 panel - Serum or Plasma [facility] Immunizations Immunization Date Immunization Notes Care Provider Fa cility 09-02-2023 tetanus toxoid, redu fercho diphtheria toxoid, and acellular pertussis vaccine, adsorbed Damir Li DO Work Phone: [facility] 09-24-2022 Prevnar 20 Damir Li Other [facility] 04-23-2020 SARS-CoV-2 (COVID-19 ) mRNA BNT-162b2 vax Stanley PALACIOS [facility] [place] 04-16-2020 SARS-CoV-2 (COVID-19 ) Ad26 vaccine, recombinant Stanley PALACIOS [facility] Comment on above: Result Comment: dupl icate 04-16-2020 SARS-CoV-2 (COVID-19 ) [id number] vaccine Stanley PALACIOS [facility] 09-29-2019 pneumococcal polysaccharide vaccine, 23 valent Damir Li Other [facility] 08-01-2019 pneumococcal conjuga te vaccine, 13 valent Stanley PALACIOS [facility] 02-11-2018 pneumococcal conjuga te vaccine, 13 valent Stanley PALACIOS [facility] 03-04-2013 pneumococcal polysaccharide vaccine, 23 valent Stanley PALACIOS [facility] 03-04-2013 tetanus toxoid, redu fercho diphtheria toxoid, and acellular pertussis vaccine, adsorbed Stanley PALACIOS [facility] 02-16-2002 tetanus toxoid, redu fercho diphtheria toxoid, and acellular pertussis vaccine, adsorbed Stanley PALACIOS [facility] Payers Date Payer Category Payer Medicare MEDICARE ANTHEM HMO OR PPO MEDICARE [facility] HMO OR PPO [id number] 2023-Present [address] [place] [address] [id number] 1959 Unknown [id number] 1950 Unknown [id number] 1951 Unknown [id number] 1951 Unknown [id number] 1951 Unknown [id number] 1951 Unknown [id number] 1950 Unknown [id number] 1950 Unknown [id number] 1950 Unknown [id number] Social History Date Type Detail Facility Start: 04-15-2021 End: 09-02-2023 Tobacco smoking status Never smoked tobacco (finding) [facility] Tobacco smoking status Never [facility] Sex Assigned At Male [facility] Start: 09-02-2023 Tobacco use and exposure Smokeless tobacco non-user [facility] [facility] Start: 09-02-2023 Alcoholic beverage intake Ex-drinker (finding) [facility] Start: 1950 Sex assigned at Not on file A [facility] Start: 1950 Sex Assigned At Male [facility] Functional Status Date Assessment Result Facility 07-20-2023 Functional Status N/A [facility] 05-30-2022 Functional Status N/A [facility] 04-18-2022 Functional Status N/A [facility] Clinical Notes 04-18-2022 to 09-02-2023 Katelynn Webster RN - 09/02/2023 10:37 PM ASAFTKatelynn Webster RN - 09/02/2023 10:37 PM JULEE Colin - 09/02/2023 10:32 PM Meryl Doherty RN - 09/02/2023 10:10 PM EDT Note Date & Type Note Facility 09-02-2023 Emergency department Note Superficial laceration pavon, no active bleeding. Cleansed with hibicleanse and water, bacitracin applied. Dressed with telfa and kerlix. [facility] 09-02-2023 Emergency department Note Superficial laceration pavon, no active bleeding. Cleansed with hibicleanse and water, bacitracin applied. Dressed with telfa and kerlix. Images from the original note were not included. Emergency Department Report [facility] EMERGENCY DEPARTMENT Service Date:.09/02/23 PCP: No primary care provider on file. Chief Complaint: Chief Complaint Patient presents with Laceration Patient to ED with laceration from a nail sticking out of board to left leg. Bleeding is controlled at this time. Patient is unsure if he is UTD on tetanus HPI Chantel Barber is a 72 y.o. male presents to the ED today due to laceration. Patient was a laceration on his left lower leg. States it he cut his leg on a exposed nail. He has been unaware of when his last tetanus shot was. Bleeding is controlled. Review of Systems: Review of Systems Constitutional: Negative. HENT: Negative. Eyes: Negative. Respiratory: Negative. Cardiovascular: Negative. Gastrointestinal: Negative. Endocrine: Negative. Genitourinary: Negative. Musculoskeletal: Negative. Skin: Positive for wound. Allergic/Immunologic: Negative. Neurological: Negative. Hematological: Negative. Psychiatric/Behavioral: Negative. Past Medical History: No past medical history on file. Past Surgical History: No past surgical history on file. Allergies: No Known Allergies Medications: Patient's Medications New Prescriptions No medications on file Previous Medications LEVOTHYROXINE 50 MCG TABLET Take 1 tablet by mouth every morning before breakfast. OMEPRAZOLE [address] CAPSULE Take 1 capsule by mouth daily. TAMSULOSIN HCL 0.4 MG CAPSULE Take 1 capsule by mouth daily. Modified Medications No medications on file Discontinued Medications No medications on file Family History: History reviewed. No pertinent family history. Social History: Social History Socioeconomic History Marital status: Not on file Spouse name: Not on file Number of children: Not on file Years of education: Not on file Highest education level: Not on file Occupational History Not on file Tobacco Use Smoking status: Never Smokeless tobacco: Never Vaping Use Vaping status: Never Used Substance and Sexual Activity Alcohol use: Not Currently Drug use: Not Currently Sexual activity: Not Currently Other Topics Concern Not on file Social History Narrative Not on file Social Determinants of Health Financial Resource Strain: Not on file Food Insecurity: Not on file Transportation Needs: Not on file Physical Activity: Not on file Stress: Not on file Social Connections: Not on file Intimate Partner Violence: Not on file Housing Stability: Not on file Physical Exam: Physical Exam Vitals and nursing note reviewed. Constitutional: General: He is not in acute distress. Appearance: Normal appearance. He is not ill-appearing. HENT: Head: Normocephalic and atraumatic. Eyes: Extraocular Movements: Extraocular movements intact. Conjunctiva/sclera: Conjunctivae normal. Pupils: Pupils are equal, round, and reactive to light. Cardiovascular: Rate and Rhythm: Normal rate. Pulses: Normal pulses. Pulmonary: Effort: Pulmonary effort is normal. No respiratory distress. Breath sounds: Normal breath sounds. Musculoskeletal: Cervical back: Normal range of motion. Skin: General: Skin is warm and dry. Capillary Refill: Capillary refill takes less than 2 seconds. Comments: Three laceration/abrasions to the anterior portion of the lower left leg. Total length of all lacerations combined is approximately 4 cm. This is divided amongst the 3 individual abrasions/lacerations. Bleeding is controlled. These are superficial and do not require closure. Neurological: General: No focal deficit present. Mental Status: He is alert and oriented to person, place, and time. Psychiatric: Mood and Affect: Mood normal. Thought Content: Thought content normal. Judgment: Judgment normal. Vital Signs During ED Visit Patient Vitals for the past 24 hrs: BP Temp Temp src Pulse Resp SpO2 Height Weight 09/02/23 2205 (!) 177/93 97.9 F (36.6 C) Oral 71 17 98 % -- -- 09/02/232201 -- -- -- -- -- -- 1.854 m (6' 1 ) 88.5 kg (195 lb) Orders/Results: Orders Placed This Encounter Dxvpmev-Pyaukj-Hzdxh Pertussis (BOOSTRIX) syringe 0.5 mL Bacitracin ointment 1 Application No results found for this or any previous visit. Radiographic Imaging No orders to display Procedures: Procedures Moderate Sedation Procedure: No ED Summary/MDM Laceration of the left lower extremity. Area was cleaned with Hibiclens saline scrub by nursing staff. Wound was evaluated. Wound is superficial in nature and does not require primary wound closure. Advised patient to keep area dry and clean monitor for infection. Bacitracin dressing was applied by nursing staff. Patient was Tdap was updated in the emergency room. He was alert oriented stable in no acute distress in his discharged home. Clinical Impression: 1. Laceration of left lower extremity, initial encounter No follow-ups on file. New Prescriptions No medications on file Discontinued Medications No medications on file An After Visit Summary was printed and given to the patient with above information. . . Willie Lau, ERASMO-INTERNET MARKETING STRATEGIST 09/02/23 2237 Patient placed back in waiting room until a room is available. Patient advised to notify registration with any changes or worsening condition/symptoms. Patient verbalized understanding and returned to waiting area in stable condition. documented in this encounter [facility] 09-02-2023 Physician Emergency department Note Images from the original note were not included. Emergency Department Report [facility] EMERGENCY DEPARTMENT Service Date:.09/02/23 PCP: No primary care provider on file. Chief Complaint: Chief Complaint Patient presents with Laceration Patient to ED with laceration from a nail sticking out of board to left leg. Bleeding is controlled at this time. Patient is unsure if he is UTD on tetanus HPI Chantel Barber is a 72 y.o. male presents to the ED today due to laceration. Patient was a laceration on his left lower leg. States it he cut his leg on a exposed nail. He has been unaware of when his last tetanus shot was. Bleeding is controlled. Review of Systems: Review of Systems Constitutional: Negative. HENT: Negative. Eyes: Negative. Respiratory: Negative. Cardiovascular: Negative. Gastrointestinal: Negative. Endocrine: Negative. Genitourinary: Negative. Musculoskeletal: Negative. Skin: Positive for wound. Allergic/Immunologic: Negative. Neurological: Negative. Hematological: Negative. Psychiatric/Behavioral: Negative. Past Medical History: No past medical history on file. Past Surgical History: No past surgical history on file. Allergies: No Known Allergies Medications: Patient's Medications New Prescriptions No medications on file Previous Medications LEVOTHYROXINE 50 MCG TABLET Take 1 tablet by mouth every morning before breakfast. OMEPRAZOLE [address] CAPSULE Take 1 capsule by mouth daily. TAMSULOSIN HCL 0.4 MG CAPSULE Take 1 capsule by mouth daily. Modified Medications No medications on file Discontinued Medications No medications on file Family History: History reviewed. No pertinent family history. Social History: Social History Socioeconomic History Marital status: Not on file Spouse name: Not on file Number of children: Not on file Years of education: Not on file Highest education level: Not on file Occupational History Not on file Tobacco Use Smoking status: Never Smokeless tobacco: Never Vaping Use Vaping status: Never Used Substance and Sexual Activity Alcohol use: Not Currently Drug use: Not Currently Sexual activity: Not Currently Other Topics Concern Not on file Social History Narrative Not on file Social Determinants of Health Financial Resource Strain: Not on file Food Insecurity: Not on file Transportation Needs: Not on file Physical Activity: Not on file Stress: Not on file Social Connections: Not on file Intimate Partner Violence: Not on file Housing Stability: Not on file Physical Exam: Physical Exam Vitals and nursing note reviewed. Constitutional: General: He is not in acute distress. Appearance: Normal appearance. He is not ill-appearing. HENT: Head: Normocephalic and atraumatic. Eyes: Extraocular Movements: Extraocular movements intact. Conjunctiva/sclera: Conjunctivae normal. Pupils: Pupils are equal, round, and reactive to light. Cardiovascular: Rate and Rhythm: Normal rate. Pulses: Normal pulses. Pulmonary: Effort: Pulmonary effort is normal. No respiratory distress. Breath sounds: Normal breath sounds. Musculoskeletal: Cervical back: Normal range of motion. Skin: General: Skin is warm and dry. Capillary Refill: Capillary refill takes less than 2 seconds. Comments: Three laceration/abrasions to the anterior portion of the lower left leg. Total length of all lacerations combined is approximately 4 cm. This is divided amongst the 3 individual abrasions/lacerations. Bleeding is controlled. These are superficial and do not require closure. Neurological: General: No focal deficit present. Mental Status: He is alert and oriented to person, place, and time. Psychiatric: Mood and Affect: Mood normal. Thought Content: Thought content normal. Judgment: Judgment normal. Vital Signs During ED Visit Patient Vitals for the past 24 hrs: BP Temp Temp src Pulse Resp SpO2 Height Weight 09/02/23 2205 (!) 177/93 97.9 F (36.6 C) Oral 71 17 98 % -- -- 09/02/23 2202 -- -- -- -- -- -- 1.854 m (6' 1 ) 88.5 kg (195 lb) Orders/Results: Orders Placed This Encounter Erhaeue-Lgxjaq-Yevcv Pertussis (BOOSTRIX) syringe 0.5 mL Bacitracin ointment 1 Application No results found for this or any previous visit. Radiographic Imaging No orders to display Procedures: Procedures Moderate Sedation Procedure: No ED Summary/MDM Laceration of the left lower extremity. Area was cleaned with Hibiclens saline scrub by nursing staff. Wound was evaluated. Wound is superficial in nature and does not require primary wound closure. Advised patient to keep area dry and clean monitor for infection. Bacitracin dressing was applied by nursing staff. Patient was Tdap was updated in the emergency room. He was alert oriented stable in no acute distress in his discharged home. Clinical Impression: 1. Laceration of left lower extremity, initial encounter No follow-ups on file. New Prescriptions No medications on file Discontinued Medications No medications on file An After Visit Summary was printed and given to the patient with above information. . . Willie Lau APRN-GURMEET 09/02/23 2237 [facility] 09-02-2023 Emergency department Note Patient placed back in waiting room until a room is available. Patient advised to notify registration with any changes or worsening condition/symptoms. Patient verbalized understanding and returned to waiting area in stable condition. [facility] 07-20-2023 Hospital Discharge instructions Patient Education 07/20/2023 10:26:50 Prostate Cancer Screening Prostate Cancer Screening Prostate cancer screening is testing that is done to check for the presence of prostate cancer in men. The prostate gland is a walnut-sized gland that is located below the bladder and in front of the rectum in males. The function of the prostate is to add fluid to semen during ejaculation. Prostate cancer is one of the most common types of cancer in men. Who should have prostate cancer screening? Screening recommendations vary based on age and other risk factors, as well as between the professional organizations who make the recommendations. In general, screening is recommended if: You are age 50 to 70 and have an average risk for prostate cancer. You should talk with your health care provider about your need for screening and how often screening should be done. Because most prostate cancers are slow growing and will not cause , screening in this age group is generally reserved for men who have a 10- to 15-year life expectancy. You are younger than age 50, and you have these risk factors: ?Having a father, brother, or uncle who has been diagnosed with prostate cancer. The risk is higher if your family member's cancer occurred at an early age or if you have multiple family members with prostate cancer at an early age. ?Being a male who is Black or is of [place] or sub-Saharan descent. In general, screening is not recommended if: You are younger than age 40. You are between the ages of 40 and 49 and you have no risk factors. You are 70 years of age or older. At this age, the risks that screening can cause are greater than the benefits that it may provide. If you are at high risk for prostate cancer, your health care provider may recommend that you have screenings more often or that you start screening at a younger age. How is screening for prostate cancer done? The recommended prostate cancer screening test is a blood test called the prostate-specific antigen (PSA) test. PSA is a protein that is made in the prostate. As you age, your prostate naturally produces more PSA. Abnormally high PSA levels may be caused by: Prostate cancer. An enlarged prostate that is not caused by cancer (benign prostatic hyperplasia, or BPH). This condition is very common in older men. A prostate gland infection (prostatitis) or urinary tract infection. Certain medicines such as male hormones (like testosterone) or other medicines that raise testosterone levels. A rectal exam may be done as part of prostate cancer screening to help provide information about the size of your prostate gland. When a rectal exam is performed, it should be done after the PSA level is drawn to avoid any effect on the results. Depending on the PSA results, you may need more tests, such as: A physical exam to check the size of your prostate gland, if not done as part of screening. Blood and imaging tests. A procedure to remove tissue samples from your prostate gland for testing (biopsy). This is the only way to know for certain if you have prostate cancer. What are the benefits of prostate cancer screening? Screening can help to identify cancer at an early stage, before symptoms start and when the cancer can be treated more easily. There is a small chance that screening may lower your risk of dying from prostate cancer. The chance is small because prostate cancer is a slow-growing cancer, and most men with prostate cancer from a different cause. What are the risks of prostate cancer screening? The main risk of prostate cancer screening is diagnosing and treating prostate cancer that would never have caused any symptoms or problems. This is called overdiagnosisand overtreatment. PSA screening cannot tell you if your PSA is high due to cancer or a different cause. A prostate biopsy is the only procedure to diagnose prostate cancer. Even the results of a biopsy may not tell you if your cancer needs to be treated. Slow-growing prostate cancer may not need any treatment other than monitoring, so diagnosing and treating it may cause unnecessary stress or other side effects. Questions to ask your health care provider When should I start prostate cancer screening? What is my risk for prostate cancer? How often do I need screening? What type of screening tests do I need? How do I get my test results? What do my results mean? Do I need treatment? Where to find more information The [place]: www.cancer.org [employer]: www.auanet.org Contact a health care provider if: You have difficulty urinating. You have pain when you urinate or ejaculate. You have blood in your urine or semen. You have pain in your back or in the area of your prostate. Summary Prostate cancer is a common type of cancer in men. The prostate gland is located below the bladder and in front of the rectum. This gland adds fluid to semen during ejaculation. Prostate cancer screening may identify cancer at an early stage, when the cancer can be treated more easily and is less likely to have spread to other areas of the body. The prostate-specific antigen (PSA) test is the recommended screening test for prostate cancer, but it has associated risks. Discuss the risks and benefits of prostate cancer screening with your health care provider. If you are age 70 or older, the risks that screening can cause are greater than the benefits that it may provide. This information is not intended to replace advice given to you by your health care provider. Make sure you discuss any questions you have with your health care provider. Document Revised: 07/29/2021 Document Reviewed: 07/29/2021 [employer] Patient Education 2022 Training Advisor. Follow Up Care 05/30/2022 10:19:40 With:RAMÓN HARDING, Stanley Jama, URL Address: [facility] [address], [place] [address]- [phone] When: Unknown Comments:repeat PSA in 6 mos (no OV), f/u in 1 year w/ repeat PSA [facility] 03-23-2023 Evaluation note Encounter Date Diagnosis Assessment Notes Mar, Benign prostatic hyperplasia with lower urinary tract symptoms (ICD-10 - N40.1) [employer] Other 09-19-2023 Evaluation note* Encounter Date Diagnosis Assessment Notes Treatment Notes Treatment Clinical Notes Oct, Mild intermittent asthma with acute exacerbation (ICD-10 - J45.21) Avoid dust, pollen, smoke. Continue DARRYN as needed Add LABA/ICS bid Add tapering dose of steroids. ER for CP or dyspnea Oct, Seasonal allergic rhinitis due to pollen (ICD-10 - J30.1) Avoid dust, pollen and smoke Begin Priyanka and Flonase NS [facility] Other 08-09-2023 Evaluation note* Encounter Date Diagnosis Assessment Notes Treatment Notes Treatment Clinical Notes Sep, Medicare annual wellness visit, subsequent (ICD-10 - Z00.00) Personalized health advice was given to the beneficiary including a written plan for screenings discussed and provided. Advanced care planning reviewed and/or information given as requested. Additional counseling was provided here today in regards to, [ ]. The above visit was performed by [ ], under direct supervision of [ ]. Document reviewed and amended by provider signed below. Sep, Gastro-esophageal reflux disease with esophagitis, without bleeding (ICD-10 - K21.00) Diet instructions: Smaller portions, avoid eating and laying flat, avoid eating or drinking prior to bedtime. Weight loss. Sep, Elevated cholesterol (ICD-10 - E78.00) Instructed on diet and exercise with continued statin therapy.Discussed the beneficial effects of lowering cholesterol in reducing the risk for cerebrovascular and cardiovascular disease. Sep, Mild intermittent asthma, uncomplicated (ICD-10 - J45.20) Seasonal in character. Uses DARRYN in evening during winter months. Sep, Other specified hypothyroidism (ICD-10 - E03.8) Sep, Autoimmune thyroiditis (ICD-10 - E06.3) Yearly TSH, euthyroid Sep, Nocturia (ICD-10 - R35.1) Sep, Benign prostatic hyperplasia with lower urinary tract symptoms (ICD-10 - N40.1) Yearly LUCIE and PSA w/ Sep, Pain of left hip (ICD-10 - M25.552) Pain w/ external rotation Pain w/ mild exercise, walking which began 6months ago w/o provoking activity XR to determine degree of arthritis ROM exercises, ice/heat and Tylenol. Sep, High risk medication use (ICD-10 - Z79.899) [facility] Other 04-14-2023 Hospital Discharge instructions Patient Education 05/30/2022 07:53:23 Benign Prostatic Hyperplasia Benign Prostatic Hyperplasia Benign prostatic hyperplasia (BPH) is an enlarged prostate gland that is caused by the normal agingprocess and not by cancer. The prostate is a walnut-sized gland that is involved in the production of semen. It is located in front of the rectum and below the bladder. The bladder stores urine and the urethra is the tube that carries the urine out of the body. The prostate may get bigger as a man gets older. An enlarged prostate can press on the urethra. This can make it harder to pass urine. The build-up of urine in the bladder can cause infection. Back pressure and infection may progress to bladder damage and kidney (renal) failure. What are the causes? This condition is part of a normal aging process. However, not all men develop problems from this condition. If the prostate enlarges away from the urethra, urine flow will not be blocked. If it enlarges toward the urethra and compresses it, there will be problems passing urine. What increases the risk? This condition is more likely to develop in men over the age of 50 years. What are the signs or symptoms? Symptoms of this condition include: Getting up often during the night to urinate. Needing to urinate frequently during the day. Difficulty starting urine flow. Decrease in size and strength of your urine stream. Leaking (dribbling) after urinating. Inability to pass urine. This needs immediate treatment. Inability to completely empty your bladder. Pain when you pass urine. This is more common if there is also an infection. Urinary tract infection (UTI). How is this diagnosed? This condition is diagnosed based on your medical history, a physical exam, and your symptoms. Tests will also be done, such as: A post-void bladder scan. This measures any amount of urine that may remain in your bladder after you finish urinating. A digital rectal exam. In a rectal exam, your health care provider checks your prostate by putting a lubricated, gloved finger into your rectum to feel the back of your prostate gland. This exam detects the size of your gland and any abnormal lumps or growths. An exam of your urine (urinalysis). A prostate specific antigen (PSA) screening. This is a blood test used to screen for prostate cancer. An ultrasound. This test uses sound waves to electronically produce a picture of your prostate gland. Your health care provider may refer you to a specialist in kidney and prostate diseases (urologist). How is this treated? Once symptoms begin, your health care provider will monitor your condition (active surveillance or watchful waiting). Treatment for this condition will depend on the severity of your condition. Treatment may include: Observation and yearly exams. This may be the only treatment needed if your condition and symptoms are mild. Medicines to relieve your symptoms, including: ?Medicines to shrink the prostate. ?Medicines to relax the muscle of the prostate. Surgery in severe cases. Surgery may include: ?Prostatectomy. In this procedure, the prostate tissue is removed completely through an open incision or with a laparoscope or robotics. ?Transurethral resection of the prostate (TURP). In this procedure, a tool is inserted through the opening at the tip of the penis (urethra). It is used to cut away tissue of the inner core of the prostate. The pieces are removed through the same opening of the penis. This removes the blockage. ?Transurethral incision (TUIP). In this procedure, small cuts are made in the prostate. This lessens the prostate's pressure on the urethra. ?Transurethral microwave thermotherapy (TUMT). This procedure uses microwaves to create heat. The heat destroys and removes a small amount of prostate tissue. ?Transurethral needle ablation (TUNA). This procedure uses radio frequencies to destroy and remove a small amount of prostate tissue. ?Interstitial laser coagulation (ILC). This procedure uses a laser to destroy and remove a small amount of prostate tissue. ?Transurethral electrovaporization (TUVP). This procedure uses electrodes to destroy and remove a small amount of prostate tissue. ?Prostatic urethral lift. This procedure inserts an implant to push the lobes of the prostate away from the urethra. Follow these instructions at home: Take [id number] and prescription medicines only as told by your health care provider. Monitor your symptoms for any changes. Contact your health care provider with any changes. Avoid drinking large amounts of liquid before going to bed or out in public. Avoid or reduce how much caffeine or alcohol you drink. Give yourself time when you urinate. Keep all follow-up visits as told by your health care provider. This is important. Contact a health care provider if: You have unexplained back pain. Your symptoms do not get better with treatment. You develop side effects from the medicine you are taking. Your urine becomes very dark or has a bad smell. Your lower abdomen becomes distended and you have trouble passing your urine. Get help right away if: You have a fever or chills. You suddenly cannot urinate. You feel lightheaded, or very dizzy, or you faint. There are large amounts of blood or clots in the urine. Your urinary problems become hard to manage. You develop moderate to severe low back or flank pain. The flank is the side of your body between the ribs and the hip. These symptoms may represent a serious problem that is an emergency. Do not wait to see if the symptoms will go away. Get medical help right away. Call your local emergency services (911 in the [place] Do not drive yourself to the hospital. Summary Benign prostatic hyperplasia (BPH) is an enlarged prostate that is caused by the normal aging process and not by cancer. An enlarged prostate can press on the urethra. This can make it hard to pass urine. This condition is part of a normal aging process and is more likely to develop in men over the age of 50 years. Get help right away if you suddenly cannot urinate. This information is not intended to replace advice given to you by your health care provider. Make sure you discuss any questions you have with your health care provider. Document Released: 02/02/2006 Document Revised: 12/28/2018 Document Reviewed: 03/09/2017 [employer] Patient Education 2020 Training Advisor. Follow Up Care 04/18/2022 09:15:57 With:RAMÓN HARDING, Stanley Jama, URL Address: [facility] [address] [place] [address]- [phone] When:Within 1 Year(s) Comments:f/u in 1 year with PSA/LUCIE [facility] 03-03-2023 Hospital Discharge instructions Patient Education 04/18/2022 09:01:07 Benign Prostatic Hyperplasia Benign Prostatic Hyperplasia Benign prostatic hyperplasia (BPH) is an enlarged prostate gland that is caused by the normal agingprocess and not by cancer. The prostate is a walnut-sized gland that is involved in the production of semen. It is located in front of the rectum and below the bladder. The bladder stores urine and the urethra is the tube that carries the urine out of the body. The prostate may get bigger as a man gets older. An enlarged prostate can press on the urethra. This can make it harder to pass urine. The build-up of urine in the bladder can cause infection. Back pressure and infection may progress to bladder damage and kidney (renal) failure. What are the causes? This condition is part of a normal aging process. However, not all men develop problems from this condition. If the prostate enlarges away from the urethra, urine flow will not be blocked. If it enlarges toward the urethra and compresses it, there will be problems passing urine. What increases the risk? This condition is more likely to develop in men over the age of 50 years. What are the signs or symptoms? Symptoms of this condition include: Getting up often during the night to urinate. Needing to urinate frequently during the day. Difficulty starting urine flow. Decrease in size and strength of your urine stream. Leaking (dribbling) after urinating. Inability to pass urine. This needs immediate treatment. Inability to completely empty your bladder. Pain when you pass urine. This is more common if there is also an infection. Urinary tract infection (UTI). How is this diagnosed? This condition is diagnosed based on your medical history, a physical exam, and your symptoms. Tests will also be done, such as: A post-void bladder scan. This measures any amount of urine that may remain in your bladder after you finish urinating. A digital rectal exam. In a rectal exam, your health care provider checks your prostate by putting a lubricated, gloved finger into your rectum to feel the back of your prostate gland. This exam detects the size of your gland and any abnormal lumps or growths. An exam of your urine (urinalysis). A prostate specific antigen (PSA) screening. This is a blood test used to screen for prostate cancer. An ultrasound. This test uses sound waves to electronically produce a picture of your prostate gland. Your health care provider may refer you to a specialist in kidney and prostate diseases (urologist). How is this treated? Once symptoms begin, your health care provider will monitor your condition (active surveillance or watchful waiting). Treatment for this condition will depend on the severity of your condition. Treatment may include: Observation and yearly exams. This may be the only treatment needed if your condition and symptoms are mild. Medicines to relieve your symptoms, including: ?Medicines to shrink the prostate. ?Medicines to relax the muscle of the prostate. Surgery in severe cases. Surgery may include: ?Prostatectomy. In this procedure, the prostate tissue is removed completely through an open incision or with a laparoscope or robotics. ?Transurethral resection of the prostate (TURP). In this procedure, a tool is inserted through the opening at the tip of the penis (urethra). It is used to cut away tissue of the inner core of the prostate. The pieces are removed through the same opening of the penis. This removes the blockage. ?Transurethral incision (TUIP). In this procedure, small cuts are made in the prostate. This lessens the prostate's pressure on the urethra. ?Transurethral microwave thermotherapy (TUMT). This procedure uses microwaves to create heat. The heat destroys and removes a small amount of prostate tissue. ?Transurethral needle ablation (TUNA). This procedure uses radio frequencies to destroy and remove a small amount of prostate tissue. ?Interstitial laser coagulation (ILC). This procedure uses a laser to destroy and remove a small amount of prostate tissue. ?Transurethral electrovaporization (TUVP). This procedure uses electrodes to destroy and remove a small amount of prostate tissue. ?Prostatic urethral lift. This procedure inserts an implant to push the lobes of the prostate away from the urethra. Follow these instructions at home: Take [id number] and prescription medicines only as told by your health care provider. Monitor your symptoms for any changes. Contact your health care provider with any changes. Avoid drinking large amounts of liquid before going to bed or out in public. Avoid or reduce how much caffeine or alcohol you drink. Give yourself time when you urinate. Keep all follow-up visits as told by your health care provider. This is important. Contact a health care provider if: You have unexplained back pain. Your symptoms do not get better with treatment. You develop side effects from the medicine you are taking. Your urine becomes very dark or has a bad smell. Your lower abdomen becomes distended and you have trouble passing your urine. Get help right away if: You have a fever or chills. You suddenly cannot urinate. You feel lightheaded, or very dizzy, or you faint. There are large amounts of blood or clots in the urine. Your urinary problems become hard to manage. You develop moderate to severe low back or flank pain. The flank is the side of your body between the ribs and the hip. These symptoms may represent a serious problem that is an emergency. Do not wait to see if the symptoms will go away. Get medical help right away. Call your local emergency services (911 in the [place] Do not drive yourself to the hospital. Summary Benign prostatic hyperplasia (BPH) is an enlarged prostate that is caused by the normal aging process and not by cancer. An enlarged prostate can press on the urethra. This can make it hard to pass urine. This condition is part of a normal aging process and is more likely to develop in men over the age of 50 years. Get help right away if you suddenly cannot urinate. This information is not intended to replace advice given to you by your health care provider. Make sure you discuss any questions you have with your health care provider. Document Released: 02/02/2006 Document Revised: 12/28/2018 Document Reviewed: 03/09/2017 [employer] Patient Education 2020 Training Advisor. Follow Up Care 04/15/2021 09:35:03 With:Stanley PALACIOS MD, URL Address: [address] [place] [id number]- When: Unknown [facility] evaluation + Plan note Future Appointments Appointment Date:05/06/2022 08:30:00 AM Scheduled Provider: Location:[facility] Appointment Type:Urology CALL PAT FT Appointment Date:05/13/2022 10:00:00 AM Scheduled Provider: Location:[facility] Appointment Type:Urology FT Appointment Date:05/30/2022 09:15:00 AM Scheduled Provider:Stanley PALACIOS MD Location:[facility] Appointment Type:URO Office Visit [facility] evaluation + Plan note Future Appointments Appointment Date:06/05/2023 08:15:00 AM Scheduled Provider:Stanley PALACIOS MD Location:[facility] Appointment Type:URO Office Visit Diagnostic Tests Pending * PSA Total 05/30/22 [facility] evaluation + Plan note Future Appointments Appointment Date:07/25/2024 08:45:00 AM Scheduled Provider:Stanley PALACIOS MD Location:[facility] Appointment Type:URO Office Visit Diagnostic Tests Pending * PSA Total 07/20/23 [facility] evaluation noteNo [employer] Other Evaluation note* Diagnosis Laceration of left lower extremity, initial encounter- [facility] Diagnosis Onset Date Resolution Status Asthma acute Benign prostatic hyperplasia with lower urinary tract symptoms acute GERD (gastroesophageal reflux disease) acute Hypercholesterolemia acute Hypothyroid acute Peripheral polyneuropathy ac laura Tinnitus acute Medicare annual wellness visit, subsequent noneactive [facility] Work Phone: History general Narrative - Reported* Type Description Date Medical History Neuropathy, peripheral Medical History Adenomatous polyp of descending colon Medical History Intermittent asthma without comp lication Medical History Benign prostatic hyp erplasia with lower urinary tract symptoms Medical History Gastroesophageal ref lux disease with esophagitis without hemorrhage Medical History Olecranon bursitis, right elbow Medical History Acquired autoimmune hypothyroidi sm Medical History Abnormal TSH Medical History Hypercholesteremia Surgical History COLONOSCOPY Surgical History TONSILLECTOMY, LINGUAL Surgical History TURP, WITH CYSTOSCOPY Hospitalization History see surgical history Movable Other Hospital course Narrative No data available for this section [facility] Hospital Discharge instructions* Attachments The following attachments cannot be sent through Care Everywhere. * Lacerations: Open (Azeri) [facility] No data available for this section [facility] Summary Purpose Family History Relationship Condition Age at Onset Recorded Date/T mark father Heart disease Unknown mother Malignant neoplasm Unknown Advance Directives Advance Directive Response Recorded Date/ Time Advance Directives No March 16, 2023 3:43pm Chief Complaint and Reason for Visit Chief Complaint Medicare Wellness Reason for Visit Asthma Benign prostatic hyperplasia with lower urinary tract symptoms GERD (gastroesophageal reflux disease) Hypercholesterolemia Hypothyroid Peripheral polyneuropathy Tinnitus Medicare annual wellness visit, subsequent Additional Source Comments (unrecognized sect ion and content) No Status Records FoundNo Status Records FoundNo Status Records FoundNo Status Records Found INFORMATION SOURCE (unrecogn ized section and content) DATE CREATED AUTHOR [facility] DATE CREATED AUTHOR AUTHOR'S ORGANIZ ATION 05/20/2023 [facility] EPIC DATE CREATED AUTHOR AUTHOR'S ORGANIZ ATION 07/21/2023 [facility] DATE CREATED AUTHOR AUTHOR'S ORGANIZ ATION 09/09/2023 [facility] Patient Care team informatio n (unrecognized section and content) [employer] Relationship Specialty Start Date End Date Guillermo DO Damir [address] [place] [id number] PCP - General Internal Medicine 09/02/23 Team Status: Active Member Role Status Dates Damir Li DO Primary Care Provider Active Team Status: Active Member Role Status Dates Damir Li DO Primary Care Provider Active Start: July 15, 2023 Stanley Palacios MD Attending Provider Active St art: July 15, 2023 Team Status: Inactive Member Role Status Dates Damir Li DO Primary Care Provide r, Attending Provider Active Start: September 28, 2023 End: September 28, 2023 REASON FOR VISIT (unrecogniz ed section and content) Reason Comments Laceration Patient to ED with l aceration from a nail sticking out of board to left leg. Bleeding is controlled at this time. Patient is unsure if he is UTD on tetanus Scheduled Active and Recently Administ ered Medications (unrecognized section and content) Medication Order 08/31/2023 09/01/2023 09/02/2023 Bacitracin ointment 1 Application (COMPLETED) 1 Application, Topical, ONCE, 1 dose, On Thu09/02/23 at 2300, Apply to wound with dressing 2231 (Given - Provid er: Katelynn Webster RN) Goals (unrecognized section and content) Goals may be documented in a n alternate section FOR RECORDS PERTAINING TO PATIENTS WHO ARE OR HAVE BEEN ENROLLED IN A CHEMICAL DEPENDENCY/SUBSTANCEABUSE PROGRAM, SOME INFORMATION MAY BE OMITTED. This clinical summary was aggregated from multiple sources. Caution should be exercised in using it in the provision of clinical care. This summary normalizes information from multiple sources, and as a consequence, information in this document may materially change the coding, format and clinical context of patient data. In addition, data may be omitted in some cases. CLINICAL DECISIONS SHOULD BE BASED ON THE PRIMARY CLINICAL RECORDS. [employer] provides no warranty or guarantee of the accuracy or completeness of information in this document.
[2023-09-29 07:33] LABS: Basophils Absolute Auto 0.1 10^3/uL (0.0-0.1); Basophils Percent Auto 1.5 % (0.2-2.0); Eosinophils Absolute Auto 0.7 10^3/uL (0.0-0.7); Eosinophils Percent Auto 10.5 % (0.9-7.0); Hematocrit 46.2 % (42.0-54.0); Hemoglobin 14.7 g/dL (14.0-18.0); Immature Granulocytes Abs Auto 0.02 10^3/uL (0.00-0.03); Immature Granulocytes Pct Auto 0.3 % (0.0-0.5); Lymphocytes Absolute Auto 1.4 10^3/uL (1.2-3.8); Lymphocytes Percent Auto 23.2 % (20.5-60.0); Mean Corpuscular HGB Conc 31.8 g/dL (29.9-35.2); Mean Corpuscular Hemoglobin 30.2 pg (25.9-34.0); Mean Corpuscular Volume 94.9 fL (80.0-94.0); Mean Platelet Volume 9.4 fL (9.5-13.5); Monocytes Absolute Auto 0.5 10^3/uL (0.3-0.8); Monocytes Percent Auto 7.9 % (1.7-12.0); Neutrophils Absolute Auto 3.5 10^3/uL (1.4-6.5); Neutrophils Percent Auto 56.6 % (43.0-75.0); Platelet Count 231 10^3/uL (150-450); Red Blood Count 4.87 10^6/uL (4.70-6.10); Red Cell Distribution Width 13.3 % (11.0-15.0); White Blood Count 6.2 10^3/uL (4.0-11.0)
[2023-09-29 08:30] LABS: Alanine Aminotransferase 42 U/L (16-63); Albumin Globulin Ratio 1.2; Albumin Level 3.7 g/dL (3.4-5.0); Alkaline Phosphatase 64 U/L (46-116); Anion Gap 11.1; Aspartate Amino Transferase 24 U/L (15-37); Bilirubin Total 0.5 mg/dL (0.2-1.0); Calcium 8.8 mg/dL (8.5-10.1); Carbon Dioxide 28.9 mmol/L (21.0-32.0); Chloride 105 mmol/L (98-107); Estimated GFR (African America >60 (>=60); Estimated GFR (Non-African Ame >60 (>=60); Globulin 3.2 g/dL; Glucose 103 mg/dL (74-106); Sodium 141 mmol/L (136-145); Thyroid Stimulating Hormone 5.339 uIU/mL (0.358-3.740); Total Protein 6.9 g/dL (6.4-8.2)
== END 2023-09-29 06:57 | disposition home or self-care (01) ==
LOC: LAB 06:58
PROVIDERS: PCP Internal Medicine; Visit Provider Internal Medicine
DX: G62.9 Polyneuropathy, unspecified (principal); E03.9 Hypothyroidism, unspecified; J45.909 Unspecified asthma, uncomplicated; E78.00 Pure hypercholesterolemia, unspecified
CPT/HCPCS: 36415; 80053; 82607; 84443; 85025

== ENCOUNTER 2024-01-18 07:01 | Outpatient (OUT) | payer MEDICARE, SELFPAY ==
--- OUTSIDE RECORDS SUMMARY | 2024-01-18 07:06 | XMS_ITS | CCD ---
Author Organization [facility] Care Team Providers Care Sales And Distribution Clerk Name Role Phone GUILLERMO, DR CROCKER Primary Care Unavailable PALACIOS ., DR VILLALTA Admitting Unavailable PALACIOS ., [...] Admitting Unavailable GUILLERMO, DAMIR Primary Care Physician Damir Li Unavailable PREET MINAYA Attending Unavailable PALACIOSStanley Attending Unavailable PALACIOS, Stanley Jama Attending Unavailable Ball Damir ALEXANDER Primary Care Provider DAMIR LI Primary Care Unavailable Allergies Allergy Classification Reported Allergen(s) Allergy Type Date of Onset Reaction(s) Facility (1 source) house dust allergenic extract Drug Allergy 1 [facility] Repository (4 sources) Dust; Translations: [Dust] Allergy to substance Sneezing (finding) [facility] (4 sources) Glucose; Translations: [glucose] Drug Allergy Sneezing (finding) [facility] Medications Current Medications Medication Drug Class(es) Dates Sig (Normalized) Sig (Original) acetaminophen 325 mg / HYDROcodone bitartrate 7.5 mg oral tablet (1 source) Opioid Agonist Start: 04-18-2022 take 1 tablet by mouth once [place] 325 mg-7.5 mg oral tablet 1 tab(s), Oral, Once, 1 tab(s), Refill(s) 0, Take 1 hour prior to procedure. Don't drive or operate machinery while taking this medication. Have a stock car driver to and from procedure., [id number], 185, cm, 04/18/22 8:40:00 EST, [...] take 1 tablet by mouth once daily Priaynka Allergy 180 MG 1 tablet Swallow whole [...] procedure., # 14 tab(s), Refills(s) 0, Pharmacy: [id number], 185, cm, 04/18/22 8:40:00 EST, Height/Length Dosing, 85.7, kg, 04/18/22 8:40:00 EST, Weight Dosing Start Date: 04/18/22 Status: Ordered Fluticasone Propion-Salmeterol (5 sources) Corticosteroid, beta2-Adrenergic Agonist Start: 07-15-2023 Fluticasone [...] Active levothyroxine sodium 0.112 mg oral tablet (16 sources) l-Thyroxine Start: 07-15-2023 take 1 tablet [...] omeprazole 40 mg delayed release oral capsule (18 sources) Proton Pump Inhibitor Start: 09-17-2023 take [...] 2023 8:51am predniSONE 20 mg oral tablet (4 sources) Start: 10-17-2023 take 3 tablets by mouth once daily, then take 2 tablets by mouth once daily, then take 1 tablet by mouth once daily Prednisone Active 20 MG PO .COMPLEX October 17, 2023 12:00am Take 3 tabs po daily x 3 days, then take 2 tabs po daily x 3 days, then take 1 tab po daily x 3 days. Start: 11-04-2022 predniSONE 20 MG 1 tablet Orally tid w/ food x 2 days then bid w/ food x 2 days then qd w/ food x 2 days for 6 days Oct, Active tadalafil 20 mg oral tablet (2 sources) Phosphodiesterase 5 Inhibitor Start: 04-18-2022 take 1 tablet by mouth every hour Cialis 20 mg Tab 20 mg = 1 tab(s), Oral, As Directed, Take one hour prior to sexual intercourse., # 30 tab(s), Refills(s) 6, Pharmacy: [id number], 185, cm, 04/18/22 8:40:00 EST, Height/Length Dosing, 85.7, kg, 04/18/22 8:40:00 EST, Weight Dosing Start Date: 04/18/22 Status: Ordered tamsulosin hydrochloride 0.4 mg oral capsule (11 sources) alpha-Adrenergic Vale Start: 01-17-2022 take 0.4 mg by mouth once daily Tamsulosin Active 0.4 MG PO Daily July 15, 2023 12:00am Completed/Discontinued Medications Medication Drug Class(es) Dates Sig (Normalized) Sig (Original) 200 actuat albuterol 0.09 mg/actuat dry powder inhaler (6 sources) beta2-Adrenergic Agonist Start: 07-15-2023 take 1 [...] dressing fexofenadine hydrochloride 180 mg oral tablet (3 sources) Histamine-1 Receptor Antagonist Start: 07-15-2023 End: [...] propionate 0.05 mg/actuat metered dose nasal spray (5 sources) Corticosteroid Start: 07-15-2023 End: 09-28-2023 Fluticasone [...] a day for 30 days Oct, Active Scopolamine Base (2 sources) Start: 09-28-2023 End: 10-17-2023 Scopolamine Base Discontinue d 1 PATCH TRANSDERML Every 72 hours 4 7 September 28, 2023 12:00am October 17, 2023 9:38am Start: 09-28-2023 Scopolamine Ba se Active 1 PATCH TRANSDERML Every 72 hours 05 23September 28, 2023 12:00am Problems Problem Classification Problem Date Documented Da te Episodic/Chronic Asthma (19 sources) Mild intermittent asthma, uncomplicated; Translations: [Mild intermittent asthma] Chronic Disorders of lipid metabolism (11 sources) Pure hypercholesterolemi a, unspecified; Translations: [Hypercholesterolem ia] Onset: 11-14-2021 Chronic Esophageal disorders (6 sources) Gastro-esophageal reflux disease with esophagitis; Translations: [...] 09-02-2023 Episodic Other aftercare (2 sources) Other rat exterminator (current) drug therapy; Translations: [OTH CUSTODIAL CURRENT DRUG THERAPY] Onset: 2021 Episodic Other and unspecified benign neoplasm (5 sources) Benign neoplasm of colon; Translations: [Benign neoplasm of descending colon] Episodic Other ear and sense organ disorders (2 sources) Tinnitus; Translations: [Tinnitus, unspecified ear] 09-28-2023 Episodic Other ear and sense organ disorders (2 sources) Tinnitus, unspecified ear; Translations: [Tinnitus, unspecified] 09-28-2023 [...] Spermatocele 03-16-2020 Episodic Other nervous system disorders (2 sources) Polyneuropathy; Translations: [Polyneuropathy, unspecified] 2023 Chronic Other nervous system disorders (2 sources) Polyneuropathy, unspecified; Translations: [Unspecified hereditary and idiopathic [...] source) Allergic rhinitis due to pollen Chronic Other upper respiratory disease (1 source) Nasal congestion; Translations: [Other disease of nasal cavity and sinuses] 10-17-2023 Episodic Residual codes; unclassified (1 source) Family history [...] Test Name Value Interpretation Reference Range Facility Basophils Auto (Bld) [#/Vol] on 09-29-2023 Basophils (Bld) [#/Vol] 0.1 10 3/uL 0.0-0.1 [facility] Basophils/100 WBC Auto (Bld) on 09-29-2023 Basophils/100 WBC (Bld) 1.5 % 0.2-2.0 [facility] Eosinophils/100 WBC Auto (Bl d)on 09-29-2023 Eosinophils/100 WBC (Bld) 10.5 % High 0.9-7.0 [facility] Erythrocyte distribution wid th Auto (RBC) [Ratio]on 09-29-2023 Erythrocyte distribution width (RBC) [Ratio] 13.3 % 11.0-15.0 [facility] Estimated glomerular filtrat ion rate (GFR) non- Americanon 09-29-2023 GFR/1.73 sq M.predicted among non-blacks MDRD (S/P/Bld) [Vol rate/Area] mL/min/{1.73_m2} >=60 [facility] Globulin Calc (S) [Mass/Vol] on 09-29-2023 Globulin (S) [Mass/Vol] 3.2 g/dL [facility] Hematocrit Auto (Bld) [Volum e fraction]on 09-29-2023 Hematocrit (Bld) [Volume fraction] 46.2 % 42.0-54.0 [facility] Hemoglobin [Mass/volume] in Bloodon 09-29-2023 Hemoglobin (Bld) [Mass/Vol] 14.7 g/dL 14.0-18.0 [facility] Laboratory - Chemistry and C hemistry - challengeon 09-29-2023 Albumin [Mass/Vol] 3.7 g/dL 3.4-5.0 [facility] ALP [Catalytic activity/Vol] 64 U/L 46-116 [facility] ALT [Catalytic activity/Vol] 42 U/L 16-63 [facility] AST [Catalytic activity/Vol] 24 U/L 15-37 [facility] Bilirubin [Mass/Vol] 0.5 mg/dL 0.2-1.0 [facility] Calcium [Mass/Vol] 8.8 mg/dL 8.5-10.1 [facility] Chloride [Moles/Vol] 105 mmol/L 98-107 [facility] CO2 [Moles/Vol] 28.9 mmol/L 21.0-32.0 [facility] Cobalamin (Vitamin B12) [Mass/Vol] 552.0 pg/mL 193.0-986.0 [facility] Creatinine [Mass/Vol] 1.15 mg/dL 0.70-1.30 [facility] GFR/1.73 sq M.predicted MDRD (S/P/Bld) [Vol rate/Area] mL/min/{1.73_m2} >=60 [facility] Glucose [Mass/Vol] 103 mg/dL 74-106 [facility] Potassium [Moles/Vol] 4.0 mmol/L 3.5-5.1 [facility] Protein [Mass/Vol] 6.9 g/dL 6.4-8.2 [facility] Sodium [Moles/Vol] 141 mmol/L 136-145 [facility] TSH Qn 5.339 m[IU]/L High 0.358-3.740 [facility] Urea nitrogen [Mass/Vol] 23.0 mg/dL High 7.0-18.0 [facility] Urea nitrogen/Creatinine [Mass ratio] 20.0 mg/mg [facility] Laboratory - Hematology and Cell countson 09-29-2023 Immature granulocytes/100 WBC (Bld) 0.3 % 0.0-0.5 [facility] Leukocytes [#/volume] correc kaylee for nucleated erythrocytes in Blood by Automated counon 09-29-2023 WBC corrected for nucl RBC Auto (Bld) [#/Vol] 6.2 10 3/uL 4.0-11.0 [facility] Lymphocytes Auto (Bld) [#/Vo l]on 09-29-2023 Lymphocytes (Bld) [#/Vol] 1.4 10 3/uL 1.2-3.8 [facility] Lymphocytes/100 WBC Auto (Bl d)on 09-29-2023 Lymphocytes/100 WBC (Bld) 23.2 % 20.5-60.0 [facility] MCH Auto (RBC) [Entitic mass ]on 09-29-2023 MCH (RBC) [Entitic mass] 30.2 pg 25.9-34.0 [facility] MCHC Auto (RBC) [Mass/Vol]on 09-29-2023 MCHC (RBC) [Mass/Vol] 31.8 g/dL 29.9-35.2 [facility] MCV Auto (RBC) [Entitic vol] on 09-29-2023 MCV (RBC) [Entitic vol] 94.9 fL High 80.0-94.0 [facility] Monocytes Auto (Bld) [#/Vol] on 09-29-2023 Monocytes (Bld) [#/Vol] 0.5 10 3/uL 0.3-0.8 [facility] Monocytes/100 WBC Auto (Bld) on 09-29-2023 Monocytes/100 WBC (Bld) 7.9 % 1.7-12.0 [facility] Neutrophils Auto (Bld) [#/Vo l]on 09-29-2023 Neutrophils (Bld) [#/Vol] 3.5 10 3/uL 1.4-6.5 [facility] Neutrophils/100 WBC Auto (Bl d)on 09-29-2023 Neutrophils/100 WBC (Bld) 56.6 % 43.0-75.0 [facility] No Panel Informationon 09-28 Eosinophils # (Auto) 0.7 10 3/uL 0.0-0.7 [facility] Immature Granulocyte # (Auto) 0.02 10 3/uL 0.00-0.03 [facility] Platelet mean volume Auto (B ld) [Entitic vol]on 09-29-2023 Platelet mean volume (Bld) [Entitic vol] 9.4 fL Low 9.5-13.5 [facility] Platelets Auto (Bld) [#/Vol] on 09-29-2023 Platelets (Bld) [#/Vol] 231 10 3/uL 150-450 [facility] RBC Auto (Bld) [#/Vol]on RBC (Bld) [#/Vol] 4.87 10 6/uL 4.70-6.10 [facility] Serum or plasma albumin/glob ulin mass ratioon 09-29-2023 Albumin/Globulin [Mass ratio] 1.2 {ratio} [facility] Serum or plasma anion gap de terminationon 09-29-2023 Anion gap [Moles/Vol] 11.1 mmol/L [facility] Ambulatory Visit Summaryon 0 07-20-2023 Ambulatory Visit Summary CHANTEL BARBER :1950 Visit Date:07/20/2023 Ambulatory Visit Instructions Your Diagnosis Elevated PSA Prostate nodule Family history of prostate cancer Benign prostatic hypertrophy with outflow obstruction Erectile dysfunction Your Care Team Attending Physician - Stanley PALACIOS MD Primary Care Physician - DAMIR LI DO This Is Your Medications List tamsulosin (tamsulosin [...] Stanley PALACIOS MD Where: [facility] Patient Educationon 07-20-19 24 Patient Education Oncology [...] adds flu (more content not included)... Normal [facility] Reminderson 07-20-2023 Reminders - From: Paulina Colvin To: EU - Recalls Palacios; Sent: 07/20/2023 10:30:51 EDT Show up: 01/19/2024 09:30:00 EST Subject: PSA Reminder Message Pt needs repeat PSA in 6 mos (no OV). -If still elevated, will need to consider PSMA PET scan. Otherwise can f/u in 1 year w/ another PSA. Normal [facility] Urology Office/Clinic Noteon 07-20-2023 Urology Office/Clinic Note [...] Jama, URL [facility] [address], [place] [address]- [phone] Additional Instructions: repeat PSA in 6 mos (no OV), f/u in 1 year w/ repeat PSA Patient Education Prostate Cancer Screening IPaulina, personally scribed for Dr. Palacios on 07/20/2023 10:28:11. . Documentation recorded by the dilanibPaulina orosco, accurately reflects the services(s) I performed and [...] Brother. Heart (more content not included)... Normal [facility] Comment on above: Result Comment: Elec tronically Signed By: Stanley PALACIOS MD\.br\Date and Time Signed: 07/20/23 10:31 EDT\.br\Electronically Co-Signed By: Paulina Colvin\.br\Date and Time Co-Signed: 07/20/23 10:28 EDT Lab Reportson 07-15-2023 Lab Reports [id number] Normal [facility] No Panel Informationon 07-14 Prostate Specific Antigen Total 3.64 ng/mL <=4.00 [facility] FREE T4on 01-01-2022 Free T4 [Mass/Vol] 0.98 ng/dL Normal 0.76-1.46 [facility] Comment on above: Performed By: #### F T4 #### [facility] [address] [place] [address] Dr. Sylvia Calix TSHon 01-01-2022 TSH 6.797 uIU/mL Critically high 0.358-3.740 [facility] Comment on above: Performed By: #### T SH #### [facility] [address] [address] [address] Sylvia Calix LIPID PROFILEon 11-13-2021 CHOL-HDL RATIO NORM SEE BELOW Normal [facility] Comment on above: Result Comment: 3.3 - 4.4 LOW RISK 4.4 - 7.1 AVERAGE RISK 7.1 - 11.0 MODERATE RISK >11.0 HIGH RISK Performed By: #### L IPID #### [facility] [address] [address] [address] Sylvia Calix Cholesterol [Mass/Vol] 199 mg/dL Normal <=200 [facility] Comment on above: Performed By: #### L IPID #### [facility] [address] [place] [address] Dr. Sylvia Calix Cholesterol in HDL [Mass/Vol] 37 mg/dL Critically low 40-60 [facility] Comment on above: Performed By: #### L IPID #### [facility] [address] [place] [address] Dr. Sylvia Calix Cholesterol in LDL [Mass/Vol] 127.6 mg/dL Normal [facility] Comment on above: Performed By: #### L IPID #### [facility] [address] [place] [address] Dr. Sylvia Calix Cholesterol.total/Ch olesterol in HDL [Mass ratio] 5.4 {ratio} Normal [facility] Comment on above: Performed By: #### L IPID #### [facility] [address] [place] [address] Dr. Sylvia Calix HDL NORMAL > or = 60 mg/dl - LO W CARDIOVASCULAR RISK <40 mg/dl - HIGH CARDIOVASCULAR RISK Normal [facility] Comment on above: Performed By: #### L IPID #### [facility] [address] [place] [address] Dr. Sylvia Calix LDL CALC NORMAL SEE BELOW Normal [facility] Comment on above: Result Comment: <100 mg/dl OPTIMAL 100 - 129 mg/dl NEAR OR ABOVE OPTIMAL 130 - 159 mg/dl BORDERLINE HIGH 160 - 189 mg/dl HIGH >190 mg/dl VERY HIGH Performed By: #### L IPID #### [facility] [address] [place] [address] Dr. Sylvia Calix Triglyceride [Mass/Vol] 172 mg/dL Critically high <=150 [facility] Comment on above: Performed By: #### L IPID #### [facility] [address] [place] [address] Dr. Sylvia Calix VLDL CALC 34.4 mg/dL Normal [facility] Comment on above: Performed By: #### L IPID #### [facility] [address] [place] [address] Dr. Sylvia Calix TSHon 11-13-2021 TSH 9.004 uIU/mL Critically high 0.358-3.740 [facility] Comment on above: Performed By: #### T SH #### [facility] [address] [place] [address] Dr. Sylvia Calix CBC AUTO DIFFon 09-25-2021 BASO # 0.1 103/ul Normal 0.0-0.1 [facility] Comment on above: Performed By: #### C BC #### [facility] [address] [place] [address] Dr. Sylvia Calix Basophils/100 WBC (Bld) 1.0 % Normal 0.2-2.0 [facility] Comment on above: Performed By: #### C BC #### [facility] [address] [place] [address] Dr. Sylvia Calix EO # 0.5 103/ul Normal 0.0-0.7 [facility] Comment on above: Performed By: #### C BC #### [facility] [address] [place] [address] Dr. Sylvia Calix Eosinophils/100 WBC (Bld) 7.3 % Critically high 0.9-7.0 [facility] Comment on above: Performed By: #### C BC #### [facility] [address] [place] [address] Dr. Sylvia Calix Erythrocyte distribution width (RBC) [Ratio] 13.4 % Normal 11.0-15.0 [facility] Comment on above: Performed By: #### C BC #### [facility] [address] [address] [address] Sylvia Calix Hematocrit (Bld) [Volume fraction] 45.9 % Normal 42.0-54.0 [facility] Comment on above: Performed By: #### C BC #### [facility] [address] [place] [address] Dr. Sylvia Calix Hemoglobin (Bld) [Mass/Vol] 15.0 g/dL Normal 14.0-18.0 [facility] Comment on above: Performed By: #### C BC #### [facility] [address] [place] [address] Dr. Sylvia Calix IG # 0.04 10e3/ul Critically high 0.00-0.03 [facility] Comment on above: Performed By: #### C BC #### [facility] [address] [place] [address] Dr. Sylvia Calix IG % 0.6 % Critically high 0.0-0.5 [facility] Comment on above: Performed By: #### C BC #### [facility] [address] [place] [address] Dr. Sylvia Calix LYMPH # 1.5 103/ul Normal 1.2-3.8 [facility] Comment on above: Performed By: #### C BC #### [facility] [address] [place] [address] Dr. Sylvia Calix Lymphocytes/100 WBC (Bld) 24.3 % Normal 20.5-60.0 [facility] Comment on above: Performed By: #### C BC #### [facility] [address] [place] [address] Dr. Sylvia Calix MANUAL DIFF REQ NO Normal [facility] Comment on above: Performed By: #### C BC #### [facility] [address] [place] [address] Dr. Sylvia Calix MCH (RBC) [Entitic mass] 30.4 pg Normal 25.9-34.0 [facility] Comment on above: Performed By: #### C BC #### [facility] [address] [address] [address] Sylvia Calix MCHC (RBC) [Mass/Vol] 32.7 g/dL Normal 29.9-35.2 [facility] Comment on above: Performed By: #### C BC #### [facility] [address] [place] [address] Dr. Sylvia Calix MCV (RBC) [Entitic vol] 93.1 fL Normal 80.0-94.0 [facility] Comment on above: Performed By: #### C BC #### [facility] [address] [place] [address] Dr. Sylvia Calix MONO # 0.5 103/ul Normal 0.3-0.8 [facility] Comment on above: Performed By: #### C BC #### [facility] [address] [place] [address] Dr. Sylvia Calix Monocytes/100 WBC (Bld) 7.8 % Normal 1.7-12.0 [facility] Comment on above: Performed By: #### C BC #### [facility] [address] [place] [address] Dr. Sylvia Calix NEUT # 3.7 103/ul Normal 1.4-6.5 [facility] Comment on above: Performed By: #### C BC #### [facility] [address] [place] [address] Dr. Sylvia Calix Neutrophils/100 WBC (Bld) 59.0 % Normal 43.0-75.0 [facility] Comment on above: Performed By: #### C BC #### [facility] [address] [place] [address] Dr. Sylvia Calix Platelet mean volume (Bld) [Entitic vol] 9.3 fL Critically low 9.5-13.5 [facility] Comment on above: Performed By: #### C BC #### [facility] [address] [place] [address] Dr. Sylvia Calix PLT 244 103/ul Normal 150-450 [facility] Comment on above: Performed By: #### C BC #### [facility] [address] [place] [address] Dr. Sylvia Calix RBC 4.93 106/ul Normal 4.70-6.10 [facility] Comment on above: Performed By: #### C BC #### [facility] [address] [address] [address] Sylvia Calix WBC 6.3 103/ul Normal 4.0-11.0 [facility] Comment on above: Performed By: #### C BC #### [facility] [address] [address] [address] Sylvia Calix LIPID PROFILEon 09-25-2021 CHOL-HDL RATIO NORM SEE BELOW Normal [facility] Comment on above: Result Comment: 3.3 - 4.4 LOW RISK 4.4 - 7.1 AVERAGE RISK 7.1 - 11.0 MODERATE RISK >11.0 HIGH RISK Performed By: #### L IPID, TSH, BMP #### [facility] [address] [address] [address] Sylvia Calix Cholesterol [Mass/Vol] 198 mg/dL Normal <=200 [facility] Comment on above: Performed By: #### L IPID, TSH, BMP #### [facility] [address] [address] [address] Sylvia Calix Cholesterol in HDL [Mass/Vol] 34 mg/dL Critically low 40-60 [facility] Comment on above: Performed By: #### L IPID, TSH, BMP #### [facility] [address] [address] [address] Sylvia Calix Cholesterol in LDL [Mass/Vol] 132.0 mg/dL Normal [facility] Comment on above: Performed By: #### L IPID, TSH, BMP #### [facility] [address] [address] [address] Sylvia Calix Cholesterol.total/Ch olesterol in HDL [Mass ratio] 5.8 {ratio} Normal [facility] Comment on above: Performed By: #### L IPID, TSH, BMP #### [facility] [address] [address] [address] Sylvia Calix HDL NORMAL > or = 60 mg/dl - LO W CARDIOVASCULAR RISK <40 mg/dl - HIGH CARDIOVASCULAR RISK Normal [facility] Comment on above: Performed By: #### L IPID, TSH, BMP #### [facility] [address] [address] [address] Sylvia Calix LDL CALC NORMAL SEE BELOW Normal [facility] Comment on above: Result Comment: <100 mg/dl OPTIMAL 100 - 129 mg/dl NEAR OR ABOVE OPTIMAL 130 - 159 mg/dl BORDERLINE HIGH 160 - 189 mg/dl HIGH >190 mg/dl VERY HIGH Performed By: #### L IPID, TSH, BMP #### [facility] [address] [address] [address] Sylvia Calix Triglyceride [Mass/Vol] 160 mg/dL Critically high <=150 [facility] Comment on above: Performed By: #### L IPID, TSH, BMP #### [facility] [address] [place] [address] Dr. Sylvia Calxi VLDL CALC 32.0 mg/dL Normal [facility] Comment on above: Performed By: #### L IPID, TSH, BMP #### [facility] [address] [address] [address] Sylvia Calix PROF CHEM 8 (BAS METB)on Anion gap [Moles/Vol] 13.8 mmol/L Normal [facility] Comment on above: Performed By: #### L IPID, TSH, BMP #### [facility] [address] [address] [address] Sylvia Calix Calcium [Mass/Vol] 9.0 mg/dL Normal 8.5-10.1 [facility] Comment on above: Performed By: #### L IPID, TSH, BMP #### [facility] [address] [address] [address] Sylvia Calix Chloride [Moles/Vol] 106 mmol/L Normal 98-107 [facility] Comment on above: Performed By: #### L IPID, TSH, BMP #### [facility] [address] [address] [address] Sylvia Calix CO2 [Moles/Vol] 27.6 mmol/L Normal 21.0-32.0 [facility] Comment on above: Performed By: #### L IPID, TSH, BMP #### [facility] [address] [place] [address] Dr. Sylvia Calix Creatinine [Mass/Vol] 1.15 mg/dL Normal 0.70-1.30 [facility] Comment on above: Performed By: #### L IPID, TSH, BMP #### [facility] [address] [address] [address] Sylvia Calix EGFR-AF CUBAN >60 Normal >=60 [facility] Comment on above: Performed By: #### L IPID, TSH, BMP #### [facility] [address] [place] [address] Dr. Sylvia Calix EGFR-NON AF CUBAN >60 Normal >=60 [facility] Comment on above: Performed By: #### L IPID, TSH, BMP #### [facility] [address] [place] [address] Dr. Sylvia Calix Glucose [Mass/Vol] 103 mg/dL Normal 74-106 [facility] Comment on above: Performed By: #### L IPID, TSH, BMP #### [facility] [address] [place] [address] Dr. Sylvia Calix Potassium [Moles/Vol] 4.4 mmol/L Normal 3.5-5.1 [facility] Comment on above: Performed By: #### L IPID, TSH, BMP #### [facility] [address] [place] [address] Dr. Sylvia Calix Sodium [Moles/Vol] 143 mmol/L Normal 136-145 [facility] Comment on above: Performed By: #### L IPID, TSH, BMP #### [facility] [address] [place] [address] Dr. Sylvia Calix Urea nitrogen [Mass/Vol] 20.0 mg/dL Critically high 7.0-18.0 [facility] Comment on above: Performed By: #### L IPID, TSH, BMP #### [facility] [address] [place] [address] Dr. Sylvia Calix Urea nitrogen/Creatinine [Mass ratio] 17.4 mg/mg Normal [facility] Comment on above: Performed By: #### L IPID, TSH, BMP #### [facility] [address] [address] [address] Sylvia Calix TSHon 09-25-2021 TSH 6.272 uIU/mL Critically high 0.358-3.740 [facility] Comment on above: Performed By: #### L IPID, TSH, BMP #### [facility] [address] [address] [address] Sylvia Calix Vital Signs Date Time Vital Sign Value Performing Clinician Facility 10-17-2023 09:42-0400 Body height 185.42 cm [facility] 10-17-2023 09:42-0400 Body mass index (BMI) [Ratio] 26 kg/m2 [facility] 10-17-2023 09:42-0400 Body temperature 97.1 [degF] [facility] 10-17-2023 09:42-0400 Body weight 89.52 kg [facility] 10-17-2023 09:42-0400 Diastolic blood pressure 86 mm[Hg] [facility] 10-17-2023 09:42-0400 Heart rate 68 /min [facility] 10-17-2023 09:42-0400 Respiratory rate 18 /min [facility] 10-17-2023 09:42-0400 SaO2% (BldA) [Mass fraction] 93 % [facility] 10-17-2023 09:42-0400 Systolic blood pressure 132 mm[Hg] [facility] 09-28-2023 08:43-0400 Diastolic blood pressure 81 mm[Hg] [facility] 09-28-2023 08:43-0400 Heart rate 59 /min [facility] 09-28-2023 08:43-0400 Respiratory rate 12 /min [facility] 09-28-2023 08:43-0400 Systolic blood pressure 124 mm[Hg] [facility] 09-02-2023 22:05-0400 Body temperature 97.9 [degF] Damir Ball DO Work Phone: [facility] 09-02-2023 22:05-0400 Diastolic blood pressure 93 mm[Hg] Damir Ball DO Work Phone: [facility] 09-02-2023 22:05-0400 Heart rate 71 /min Damir Ball DO Work Phone: [facility] 09-02-2023 22:05-0400 Respiratory rate 17 /min Damir Ball DO Work Phone: [facility] 09-02-2023 22:05-0400 SaO2% (BldA) [Mass fraction] 98 % Damir Ball DO Work Phone: [facility] 09-02-2023 22:05-0400 Systolic blood pressure 177 mm[Hg] Damir Ball DO Work Phone: [facility] 09-02-2023 22:02-0400 Body height 185.4 cm Damir Ball DO Work Phone: [facility] 09-02-2023 22:02-0400 Body mass index (BMI) [Ratio] 25.73 kg/m2 Damir Ball DO Work Phone: [facility] 09-02-2023 22:02-0400 Body weight 88.45 kg Damir Ball DO Work Phone: [facility] 07-20-2023 09:57-0400 Blood Pressure Location Stanley PALACIOS [facility] 07-20-2023 09:57-0400 Diastolic blood pressure 89 mm[Hg] Stanley PALACIOS [facility] 07-20-2023 09:57-0400 Heart rate 72 /min Stanley PALACIOS [facility] 07-20-2023 09:57-0400 Respiratory rate 16 /min Stanley PALACIOS [facility] 07-20-2023 09:57-0400 Systolic blood pressure 132 mm[Hg] Stanley PALACIOS [facility] 11-04-2022 08:45-0400 Body height 185.42 cm Damir Ball Other [facility] Other 11-04-2022 08:45-0400 Body mass index (BMI) [Ratio] 25.49 kg/m2 Damir Ball Other [facility] Other 11-04-2022 08:45-0400 Body weight 87.64 kg Damir Ball Other [facility] Other 11-04-2022 08:45-0400 Diastolic blood pressure 87 mm[Hg] Damir Ball Other [facility] Other 11-04-2022 08:45-0400 Respiratory rate 12 /min Damir Ball Other [facility] Other 11-04-2022 08:45-0400 SaO2% (BldA) [Mass fraction] 96 % Damir Ball Other [facility] Other 11-04-2022 08:45-0400 Systolic blood pressure 148 mm[Hg] Damir Ball Other [facility] Other 09-24-2022 14:00-0400 Body height 185.42 cm Damir Ball Other [facility] Other 09-24-2022 14:00-0400 Body mass index (BMI) [Ratio] 25.59 kg/m2 Damir Ball Other [facility] Other 09-24-2022 14:00-0400 Body weight 88 kg Damir Ball Other [facility] [employer] Other 09-24-2022 14:00-0400 Diastolic blood pressure 90 mm[Hg] Damir Li Other [facility] [employer] Other 09-24-2022 14:00-0400 Systolic blood pressure 133 mm[Hg] Damir Li Other [facility] [employer] Other 05-30-2022 09:20-0400 Blood Pressure Location Stanley PALACIOS [facility] 05-30-2022 09:20-0400 Diastolic blood pressure 80 mm[Hg] Stanley PALACIOS [facility] 05-30-2022 09:20-0400 Heart rate 71 /min Stanley PALACIOS [facility] 05-30-2022 09:20-0400 Respiratory rate 16 /min Stanley PALACIOS [facility] 05-30-2022 09:20-0400 Systolic blood pressure 122 mm[Hg] Stanley PALACIOS [facility] 04-18-2022 08:33-0500 Blood Pressure Location Stanley PALACIOS [facility] 04-18-2022 08:33-0500 Diastolic blood pressure 81 mm[Hg] Stanley PALACIOS [facility] 04-18-2022 08:33-0500 Heart rate 72 /min Stanley PALACIOS [facility] 04-18-2022 08:33-0500 Respiratory rate 16 /min Stanley PALACIOS [facility] 04-18-2022 08:33-0500 Systolic blood pressure 128 mm[Hg] Stanley PALACIOS [facility] Encounters Encounter Date Encounter Type Care Provider Facility Start: 07-25-2024 ambulatory Stanley PALACIOS Facili ty: [place] Start: 10-17-2023 End: 10-17-2023 ambulatory [facility] Work Phone: Start: 10-17-2023 End: 10-17-2023 Patient encounter procedure [facility] Phys[facility] Work Phone: Start: 09-29-2023 Non-patient / Non-visit [facility] Work Phone: Start: 09-28-2023 End: 09-28-2023 ambulatory [facility] Work Phone: Start: 09-28-2023 End: 09-28-2023 Patient encounter procedure [facility] Work Phone: Start: 09-02-2023 End: 09-02-2023 Emergency department patient visit DAMIR Caban [facility] Start: 07-20-2023 End: 07-20-2023 ambulatory Stanley PALACIOS Facility:[facility] Start: 07-20-2023 End: 07-20-2023 Patient encounter procedure Stanley PALACIOS [facility] Start: 07-15-2023 Non-patient / Non-visit [facility] Work Phone: Start: 05-19-2023 End: 05-19-2023 ambulatory PREET MINAYA Not Available Start: 03-23-2023 End: 03-23-2023 ambulatory Damir Li Other [facility] Other Start: 03-23-2023 Telephone encounter Damir Ball [facility] Start: 12-26-2022 End: 12-26-2022 ambulatory Damir Guillermo Other [facility] Other Start: 12-26-2022 Telephone encounter aDmir Li [facility] Start: 11-04-2022 End: 11-04-2022 ambulatory Damir Li Other [facility] Other Start: 11-04-2022 Office outpatient vi sit 15 minutes Damir Li [facility] Start: 10-02-2022 End: 10-02-2022 ambulatory Damir Guillermo Other [employer] Other Start: 10-02-2022 Telephone encounter Damir Li [facility] Start: 09-24-2022 End: 09-24-2022 ambulatory Damir Guillermo Other [employer] Other Start: 09-24-2022 Patient encounter procedure Damir Li [facility] Start: 05-30-2022 End: 05-30-2022 Patient encounter procedure Stanley PALACIOS [facility] Start: 04-18-2022 End: 04-18-2022 Patient encounter procedure Stanley PALACIOS [facility] Start: 04-12-2022 End: 04-13-[address] DAMIR LI Facility:[facility] Start: 01-01-2022 End: 01-02-[address] DAMIR LI Facility:[facility] Start: 11-13-2021 End: 11-14-[address] DAMIR LI Facility:[facility] Start: 09-25-2021 End: [address] DAMIR LI Facility:[facility] Procedures Date Procedure Procedure Detail Performing Clinician Start: 05-13-2022 Transrectal biopsy o f prostate using ultrasound guidance Stanley PALACIOS Start: 04-12-[address] PAULA LI Comment on above: Performed By: #### P SAD #### [facility] [address] [place] [address] Dr. Sylvai Calix Start: 01-09-2014 Cystoscopy Stanley LANDON Start: 07-31-2011 Transurethral prostatectomy Stanley PALACIOS Start: 04-17-2011 Urodynamic studies Patr ariel RAMÓN Start: 03-21-2011 Cystoscopy Stanley LANDON Tonsillectomy Stanley PALACIOS Plan of Treatment Date Care Activity Detail Author Start: 09-01-2033 Tetanus vaccination TETANUS [facility] Start: 10-18-2023 Influenza vaccination INFLUENZA VACC INE (#1) [facility] Start: 10-17-2022 COVID-19 VACCINE ( season) COVID-19 VACCINE ( season) [facility] Start: 03-31-2014 Screening for malign ant neoplasm of colon COLORECTAL CANCER SCREENING DISCUSSION [facility] Start: 09-25-2001 Prostate specific an tigen measurement PROSTATE CANCER SCREENING DISCUSSION [facility] Start: 09-25-2001 Zoster vaccine hzv l savanah for subcutaneous use ZOSTER (SHINGLES) VACCINE (1 of 2) [facility] Start: 1991 Lipid panel LIPID SCREENING [facility] Start: 1950 Hepatitis C screening HEPATITI S C VIRUS SCREENING [facility] Start: 1950 Thyroid stimulating hormone measurement TSH [facility] Comprehensive metabo lic 2000 panel - Serum or Plasma [facility] Immunizations Immunization Date Immunization Notes Care Provider Fa simon 09-02-2023 tetanus toxoid, redu fercho diphtheria toxoid, and acellular pertussis vaccine, adsorbed Damir Li DO Work Phone: [facility] 09-24-2022 Prevnar 20 Damir Li Other [facility] 04-23-2020 SARS-CoV-2 (COVID-19 ) mRNA BNT-162b2 vax Stanley PALACIOS [facility] [place] 04-16-2020 SARS-CoV-2 (COVID-19 ) Ad26 vaccine, recombinant Stanley PALACIOS [facility] Comment on above: Result Comment: dupl icate 04-16-2020 SARS-CoV-2 (COVID-19 ) mRNA-1273 vaccine Stanley PALACIOS [facility] 09-29-2019 pneumococcal polysaccharide vaccine, 23 valent Damir Guillermo Other [facility] 08-01-2019 pneumococcal conjuga te vaccine, 13 valent Stanley PALACIOS [facility] 02-11-2018 pneumococcal conjuga te vaccine, 13 valent Stanley PALACIOS [facility] 03-04-2013 pneumococcal polysaccharide vaccine, 23 valent Stanleylenora PALACIOS [facility] 03-04-2013 tetanus toxoid, redu fercho diphtheria toxoid, and acellular pertussis vaccine, adsorbed Stanleylenora PALACIOS [facility] 02-16-2002 tetanus toxoid, redu fercho diphtheria toxoid, and acellular pertussis vaccine, adsorbed Stanleylenora PALACIOS [facility] Payers Date Payer Category Payer Medicare MEDICARE ANTHEM HMO OR PPO MEDICARE ANTHEM HMO OR PPO [id number] 2023-Present [address] [place] [address] [id number] 1959 Unknown [id number] 1950 Unknown [id number] 1951 Unknown [id number] 1951 Unknown [id number] 1951 Unknown [id number] 1951 Unknown [id number] 9 1950 Unknown [id number] 1950 Unknown [id number] 1950 Unknown [id number] Social History Date Type Detail Facility Start: 04-15-2021 End: 09-02-2023 Tobacco smoking status Never smoked tobacco (finding) [facility] Tobacco smoking status Never [facility] Sex Assigned At Male [facility] Start: 09-02-2023 Tobacco use and exposure Smokeless tobacco non-user [facility] Start: 09-02-2023 Alcoholic beverage intake Ex-drinker (finding) [facility] Start: 1950 Sex assigned at Not on file A [facility] Start: 1950 Sex Assigned At Male [facility] Start: 10-17-2023 Tobacco smoking stat NHIS Ex-smoker (finding) [facility] Functional Status Date Assessment Result Facility 07-20-2023 Functional Status N/A [facility] 05-30-2022 Functional Status N/A [facility] 04-18-2022 Functional Status N/A [facility] Clinical Notes 04-18-2022 to 09-02-2023 Katelynn Webster RN - 09/02/2023 10:37 PM EDTKatelynn Wesbter RN - 09/02/2023 10:37 PM EDTJULEE Kwon - 09/02/2023 10:32 PM EDSavannah Doherty RN - 09/02/2023 10:10 PM EDT Note Date & Type Note Facility 09-02-2023 Emergency department Note Superficial laceration pavon, no active bleeding. Cleansed with hibicleanse and water, bacitracin applied. Dressed with telfa and kerlix. [facility] 09-02-2023 Emergency department Note Superficial laceration pavon, no active bleeding. Cleansed with hibicleanse and water, bacitracin applied. Dressed with telfa and kerlix. Images from the original note were not included. Emergency Department Report [facility] Service Date:.09/02/23 PCP: No primary [...] (195 lb) Orders/Results: Orders Placed This Encounter Ssjrhoo-Tvsevp-Djags Pertussis (BOOSTRIX) syringe 0.5 mL Bacitracin ointment [...] . . Willie Lau APRN-[facility] 09/02/23 [id number] Patient placed back in waiting room until a room is available. Patient advised to notify registration with any changes or worsening condition/symptoms. Patient verbalized understanding and returned to waiting area in stable condition. documented in this encounter [facility] 09-02-2023 Physician Emergency department Note Images from the original note were not included. Emergency Department Report [facility] Service Date:.09/02/23 PCP: No primary [...] (195 lb) Orders/Results: Orders Placed This Encounter Gqovijo-Wsrecj-Gnlko Pertussis (BOOSTRIX) syringe 0.5 mL Bacitracin ointment [...] with above information. . . Willie Lau APRN-[facility] 09/02/23 1689 [facility] 09-02-2023 Emergency department Note Patient placed back in waiting room until a room is available. Patient advised to notify registration with any changes or worsening condition/symptoms. Patient verbalized understanding and returned to waiting area in stable condition. [facility] 07-20-2023 Hospital Discharge instructions Patient Education 07/20/2023 [...] provider. Document Revised: 07/29/2021 Document Reviewed: 07/29/2021 [employer] Patient Education 2022 [employer]. Follow Up Care 05/30/2022 10:19:40 With:RAMÓN HARDING, Stanley Jama, URL Address: [facility] [address], [place] [address]- [phone] When: Unknown Comments:repeat PSA in 6 mos (no OV), f/u in 1 year w/ repeat PSA [facility] [place] 03-23-2023 Evaluation note Encounter Date Diagnosis Assessment Notes Mar, Benign prostatic hyperplasia with lower urinary tract symptoms (ICD-10 - N40.1) [facility] Other 09-19-2023 Evaluation note* Encounter Date Diagnosis [...] and smoke Begin Priyanka and Flonase NS [facility] Other 08-09-2023 Evaluation note* Encounter Date Diagnosis [...] High risk medication use (ICD-10 - Z79.899) [facility] Other 04-14-2023 Hospital Discharge instructions Patient Education [...] urethra. Follow these instructions at home: Take sppp-isw-pgfdmbh and prescription medicines only as told by [...] 02/02/2006 Document Revised: 12/28/2018 Document Reviewed: 03/09/2017 [employer] Patient Education 2020 [employer]. Follow Up Care 04/18/2022 09:15:57 With:RAMÓN HARDING, Stanley Jama, URL Address: [facility] [address] [place] [address] [phone] When:Within 1 Year(s) Comments:f/u in 1 year with PSA/LUCIE [facility] 03-03-2023 Hospital Discharge instructions Patient Education 04/18/2022 [...] urethra. Follow these instructions at home: Take gtbv-ytw-mhhdlsf and prescription medicines only as told by [...] 02/02/2006 Document Revised: 12/28/2018 Document Reviewed: 03/09/2017 [employer] Patient Education 2020 [employer]. Follow Up Care 04/15/2021 09:35:03 With:Stanley PALACIOS MD, URL Address: [address] [place] [phone]- When: Unknown [facility] evaluation + Plan note Future Appointments Appointment Date:05/06/2022 08:30:00 AM Scheduled Provider: Location:[facility] Appointment Type:Urology CALL PAT FT Appointment Date:05/13/2022 10:00:00 AM Scheduled Provider: Location:[facility] Appointment Type:Urology FT Appointment Date:05/30/2022 09:15:00 AM Scheduled Provider:Stanley PALACIOS MD Location:[facility] Appointment Type:URO Office Visit [facility] evaluation + Plan note Future Appointments Appointment Date:06/05/2023 08:15:00 AM Scheduled Provider:Stanley PALACIOS MD Location:[facility] Appointment Type:URO Office Visit Diagnostic Tests Pending * PSA Total 05/30/22 [facility] evaluation + Plan note Future Appointments Appointment Date:07/25/2024 08:45:00 AM Scheduled Provider:Stnaley PALACIOS MD Location:[facility] Appointment Type:URO Office Visit Diagnostic Tests Pending * PSA Total 07/20/23 [facility] evaluation noteNo InformationNort Group[employer] Other Evaluation note* Diagnosis Laceration of left lower extremity, initial encounter- Primary [facility] Diagnosis Onset Date Resolution Status Asthma acute Benign prostatic hyperplasia with lower urinary tract symptoms acute GERD (gastroesophageal reflux disease) acute Hypercholesterolemia acute Hypothyroid acute Peripheral polyneuropathy ac comanche Tinnitus acute Medicare annual wellness visit, subsequent noneactive [facility] Work Phone: Evaluation note* Diagnosis Onset Date Resolution Status Asthma acute Benign prostatic hyperplasia with lower urinary tract symptoms acute GERD (gastroesophageal reflux disease) acute Hypercholesterolemia acute Hypothyroid acute Peripheral polyneuropathy ac comanche Tinnitus acute Medicare annual wellness visit, subsequent noneactive Congestion of nasal sinus no neactive [facility] Work Phone: History general Narrative - Reported* [...] WITH CYSTOSCOPY Hospitalization History see surgical history [facility] [employer] Other Hospital course Narrative No data available for this section [facility] Hospital Discharge instructions* Attachments The following attachments cannot be sent through Care Everywhere. * Lacerations: Open (Cambodian) [facility] No data available for this section [facility] Summary Purpose Family History Relationship Condition [...] polyneuropathy Tinnitus Medicare annual wellness visit, subsequent Chief Complaint Medicare Wellness congestion Reason for Visit Asthma Benign prostatic hyperplasia with lower urinary tract symptoms GERD (gastroesophageal reflux disease) Hypercholesterolemia Hypothyroid Peripheral polyneuropathy Tinnitus Medicare annual wellness visit, subsequent Congestion of nasal sinus Additional Source Comments (unrecognized sect ion and content) No Status Records FoundNo Status Records FoundNo Status Records FoundNo Status Records Found INFORMATION SOURCE (unrecogn ized section and content) DATE CREATED AUTHOR 04/18/2022 [facility] DATE CREATED AUTHOR AUTHOR'S ORGANIZ ATION 05/20/2023 [facility] EPIC DATE CREATED AUTHOR AUTHOR'S ORGANIZ ATION 07/21/2023 Downey Jose Angel [facility] DATE CREATED AUTHOR AUTHOR'S ORGANIZ ATION 09/09/2023 [facility] Patient Care team informatio n (unrecognized section and content) Team Status: Active Member Role Status Dates Damir Li DO Primary Care Provider Active Team Status: Inactive Member Role Status Dates Damir Li DO Primary Care Provide r, Attending Provider Active Start: September 28, 2023 End: September 28, 2023 Team Status: Active Member Role Status Dates Damir iL DO Primary Care Provide r, Attending Provider Active Start: September 29, 2023 Team Status: Inactive Member Role Status Dates Damir Li DO Primary Care Provider Active Start: October 17, 2023 End: October 17, 2023 Jazlyn Brandt APRN Attending Provider Active Start: October 17, 2023 End: October 17, 2023 Sales And Distribution Clerk Relationship Specialty Start Date End Date Damir Li DO [address] [place] [address] PCP - General Internal Medicine 09/02/23 Team Status: Active Member Role Status Dates Damir Li DO Primary Care Provider Active Team Status: Active Member Role Status Dates Damir Li DO Primary Care Provider Active Start: July 15, 2023 Stanley Palacios MD Attending Provider Active St art: July 15, 2023 Team Status: Inactive Member Role Status Dates Damir Li , DO Primary Care Provide r, Attending Provider Active Start: September 28, 2023 End: September 28, 2023 Team Status: Active Member Role Status Dates Damir Li , DO Primary Care Provide r, Attending Provider Active Start: September 29, 2023 Team Status: Inactive Member Role Status Dates Damir Li , DO Primary Care Provider Active Start: October 17, 2023 End: October 17, 2023 Jazlyn Brandt APRN Attending Provider Active Start: October 17, 2023 End: October 17, 2023 REASON FOR VISIT (unrecogniz ed section [...] with dressing 2231 (Given - Provid er: Kaetlynn Webster RN) Goals (unrecognized section and content) [...] BE BASED ON THE PRIMARY CLINICAL RECORDS. [facility] [employer] [facility]. provides no warranty or guarantee of the accuracy or completeness of information in this document.
[2024-01-18 09:58] LABS: Prostate Specific Antigen Dx 3.51 ng/mL (<=4.00)
== END 2024-01-18 07:02 | disposition home or self-care (01) ==
LOC: LAB 07:03
PROVIDERS: PCP Internal Medicine; Visit Provider Urology
DX: R97.20 Elevated prostate specific antigen [PSA] (principal); Z80.42 Family history of malignant neoplasm of prostate
CPT/HCPCS: 36415; 84153

== ENCOUNTER 2024-09-28 06:56 | Outpatient (OUT) | payer MEDICARE, SELFPAY ==
--- OUTSIDE RECORDS SUMMARY | 2024-09-28 07:00 | XMS_ITS | CCD ---
Author Organization [facility] Care Team Providers Care Medical Billing Coder Name Role Phone GUILLERMO, DR CROCKER Primary [...] Unavailable BALL, DR CROCKER Admitting Unavailable BALL, DAMIR Primary Care Physician Damir Li Unavailable Damir Li DO Primary Care Provider [phone] DAMIR LI Primary Care Unavailable Ball DO, Damir Zhao Primary Care Provider PREET WILCOX Attending Unavailable PALACIOS, Stanley Jama Attending Unavailable PALACIOS, Stanley R Attending Unavailable PALACIOS, Stanley R Attending Unavailable PALACIOS, Stanley R Admitting Unavailable PALACIOS, Stanley R Attending Unavailable PALACIOS, Stanley R Attending Unavailable PALACIOS, Stanley R Attending Unavailable PALACIOS, Stanley R Admitting Unavailable Ball Damir ALEXANDER Primary Care Provider Guillermo ALEXANDER, Damir Attending Provider Allergies Allergy Classification Reported Allergen(s) Allergy Type Date of Onset Reaction(s) Facility (1 source) house dust allergenic extract Drug Allergy 1 [facility] Repository (8 sources) Dust; Translations: [Dust] Allergy to substance Sneezing (finding) [facility] (8 sources) Glucose; Translations: [glucose] Drug Allergy Sneezing (finding) [facility] (3 sources) House dust mite Propensity to adverse reactions 4 [facility] (3 sources) Cattle Epithelium Propensity to adverse reactions 4 [facility] (3 sources) Dog Epithelium Propensity to adverse reactions 4 [facility] Medications Current Medications Medication Drug Class(es) Dates Sig (Normalized) Sig (Original) acetaminophen 325 mg / HYDROcodone bitartrate 7.5 mg oral tablet (1 source) Opioid Agonist Start: 04-18-2022 take 1 tablet by mouth once [place] 325 mg-7.5 mg oral tablet 1 tab(s), Oral, Once, 1 tab(s), Refill(s) 0, Take 1 hour prior to procedure. Don't drive or operate machinery while taking this medication. Have a driver retraining instructor to and from procedure., [id number], 185, cm, 04/18/22 8:40:00 EST, Height/Length Dos... Start Date: 04/18/22 Status: Ordered [id number] 200 actuat albuterol 0.09 mg/actuat metered dose inhaler (12 sources) beta2-Adrenergic Agonist Start: 01-15-2024 End: 09-18-2024 take 2 puff(s) by mouth every six hours as needed for wheezing Albuterol Sulfate 90 mcg/actuation HFA aerosol inhaler Active 0 .ROUTE .COMPLEX September 18, 2024 3:40pm INHALE 2 PUFFS BY MOUTH EVERY 6 HOURS NEEDED FOR SHORTNESS OF BREATH FOR WHEEZING Complies with drug therapy Start: 07-15-2023 End: 07-15-2023 Albuterol Sulfate 90 mcg/act uation aerosol powdr breath activated Discontinued 2 INH INHALATION Every 6 hours as needed for shortness of breath or wheezing 1 July 15, 2023 1:11pm July 15, 2023 5:55pm Start: 07-15-2023 End: 01-15-2024 take 1 puff(s) by inhalation every six hours as needed for wheezing Albuterol Sulfate 90 mcg/actuation HFA aerosol inhaler Discontinued 2 PUFF INHALATION Every 6 hours as needed for shortness of breath or wheezing 8.5 July 15, 2023 12:00am January 15, 2024 8:02am Albuterol (Eqv-ProAir HFA) 90 mcg/inh inhalation aerosol (6 sources) Start: 06-28-2020 take 2 puff(s) by mouth every six hours as needed Albuterol (Eqv-ProAir HFA) 90 mcg/inh inhalation aerosol INHALE 2 PUFFS BY MOUTH EVERY 6 HOURS NEEDED Start Date: 06/28/20 Status: Ordered Repeat number: 1 Start: 06-28-2020 take 2 puff(s) by mo uth every six hours as needed Albuterol (Eqv-ProAir [...] procedure., # 14 tab(s), Refills(s) 0, Pharmacy: [id number], 185, cm, 04/18/22 8:40:00 EST, Height/Length Dosing, 85.7, kg, 04/18/22 8:40:00 EST, Weight Dosing Start Date: 04/18/22 Status: Ordered Fluticasone Propion-Salmeterol (7 sources) Corticosteroid, beta2-Adrenergic Agonist Start: 11-17-2023 Fluticasone Propion-Salmeter ol 250-50 mcg/dose blister with device Active 1 INH INHALATION Twice daily 180 90 November 17, 2023 8:45pm Complies with drug therapy Start: 07-15-2023 End: 11-17-2023 Fluticasone Propion-Salmeter ol 250-50 mcg/dose blister with device Discontinued 1 INH INHALATION Twice daily July 15, 2023 12:00am November 17, 2023 8:46pm Start: 07-15-2023 Fluticasone Pr opion-Salmeterol Active 1 INH INHALATION Twice daily July 15, 2023 12:00am Start: 11-04-2022 take 1 puff(s) by in halation twice daily Fluticasone-Salmeterol 250-50 MCG/ACT 1 puff Inhalation Twice a day for 30 days Oct, Active Fluticasone-Salm eterol 250-50 MCG/ACT INHALE 1 DOSE BY MOUTH TWICE DAILY FOR 30 DAYS for 30 Active methylPREDNISolone (3 sources) Corticosteroid Start: 05-19-2023 methylPREDNISo lone (Medrol Dospak) 4 MG tablets Indications: Anterior tibialis tendinitis of right lower extremity , Primary osteoarthritis of right ankle Take as directed on package. 21 tablet 05/19/2023 Active Multi Vitamin+ (6 sources) Start: 06-28-2020 Multi Vitamin+ Refill(s) 0 Start Date: 06/28/20 Status: Ordered Repeat number: 1 Start: 06-28-2020 Multi Vitamin+ Refill(s) 0 Start Date: 06/28/20 Status: Ordered omeprazole 40 mg delayed release oral capsule (20 sources) Proton Pump Inhibitor Start: 09-13-2024 Omeprazole 40 mg capsule,delayed release(DR/EC) Active 40 MG PO Daily September 13, 2024 4:42pm take on empty stomach, 30 minutes prior to bkfst Complies with drug therapy Start: 09-17-2023 End: 09-13-2024 take 1 capsule by mouth once daily at breakfast Omeprazole 40 mg capsule,delayed release(DR/EC) Discontinued 0 .ROUTE .COMPLEX September 17, 2023 8:51am September 13, 2024 4:42pm TAKE 1 CAPSULE BY MOUTH ONCE DAILY ON AN EMPTY STOMACH FOLLOWED IN 30 MINUTES BY BREAKFAST Start: 02-20-2021 End: 09-17-2023 take 1 capsule by mouth once daily Omeprazole 40 mg capsule,delayed release(DR/EC) Discontinued 40 MG PO Daily July 15, 2023 12:00am September 17, 2023 8:51am tadalafil 20 mg oral tablet (2 sources) Phosphodiesterase 5 Inhibitor Start: 04-18-2022 take 1 tablet by mouth every hour Cialis 20 mg Tab 20 mg = 1 tab(s), Oral, As Directed, Take one hour prior to sexual intercourse., # 30 tab(s), Refills(s) 6, Pharmacy: [id number], 185, cm, 04/18/22 8:40:00 EST, Height/Length Dosing, 85.7, kg, 04/18/22 8:40:00 EST, Weight Dosing Start Date: 04/18/22 Status: Ordered tamsulosin hydrochloride 0.4 mg oral capsule (18 sources) alpha-Adrenergic Vale Start: 01-17-2022 take 1 capsule by mouth once daily Tamsulosin 0.4 mg capsule Active 0.4 MG PO Daily July 15, 2023 12:00am Complies with drug therapy Completed/Discontinued Medications Medication Drug Class(es) Dates Sig (Normalized) Sig (Original) azithromycin 250 mg oral tablet (5 sources) [...] dressing fexofenadine hydrochloride 180 mg oral tablet (4 sources) Histamine-1 Receptor Antagonist Start: 07-15-2023 End: 09-28-2023 take 1 tablet by mouth once daily Fexofenadine 180 mg tablet Discontinued 180 MG PO Daily July 15, 2023 12:00am September 28, 2023 8:41am Start: 11-04-2022 take 1 tablet by mouth once da marli Priyanka Allergy 180 MG 1 tablet Swallow whole with water; do not take with fruit juices. Orally Once a day for 30 days Oct, Active fluticasone propionate 0.05 mg/actuat metered dose nasal spray (6 sources) Corticosteroid Start: 07-15-2023 End: 09-28-2023 Fluticasone Propionate 50 mcg/actuation spray,suspension Discontinued 1 SPRAY INTRANASAL Daily July 15, [...] a day for 30 days Oct, Active levothyroxine sodium 0.112 mg oral tablet (20 sources) l-Thyroxine Start: 07-15-2023 End: 03-02-2024 take 1 tablet by mouth once daily Levothyroxine (Euthyrox) 112 mcg tablet Discontinued 112 MCG PO Daily December 17, 2023 7:59pm March 02, 2024 12:37pm Start: 06-30-2022 take 1 tablet by stacy [...] oral daily on an empty stomach for Dec, Not-Taking/PRN Start: 01-01-2022 take 1 tablet [...] Refills(s) 0 Start Date: 10/04/18 Status: Ordered Repeat number: 1 take 1 tablet by stacy th once daily before breakfast Levothyroxine 50 MCG tablet Take 1 tablet by mouth every morning before breakfast. Active predniSONE 20 mg oral tablet (5 sources) Start: 10-17-2023 End: 09-24-2024 take 3 tablets by mouth once daily, then take 2 tablets by mouth once daily, then take 1 tablet by mouth once daily Prednisone 20 mg tablet Discontinued 20 MG PO .COMPLEX October 17, 2023 12:00am September 24, 2024 3:42pm Take 3 tabs po daily x 3 days, then take 2 tabs po daily x 3 days, then take 1 tab po daily x 3 days. Start: 11-04-2022 predniSONE 20 MG 1 tablet Orally tid w/ food x 2 days then bid w/ food x 2 days then qd w/ food x 2 days for 6 days Oct, Active 72 hr scopolamine 0.0139 mg/hr transdermal system (1 source) Anticholinergic Start: 09-28-2023 End: 10-17-2023 Scopolamine Base 1 mg over 3 days patch 3 day Discontinued 1 PATCH TRANSDERML Every 72 hours 4 September 28, 2023 12:00am October 17, 2023 9:38am Scopolamine Base (2 sources) Start: 09-28-2023 End: 10-17-2023 Scopolamine Base Discontinued 1 PATCH TRANSDERML Every 72 hours 4 September 28, 2023 12:00am October 17, 2023 9:38am Start: 09-28-2023 Scopolamine Ba se Active 1 PATCH TRANSDERML Every 72 hours 4 September 28, 2023 12:00am Problems Problem Classification Problem Date Documented Da te Episodic/Chronic Asthma (20 sources) Mild intermittent asthma, uncomplicated; Translations: [Mild intermittent asthma] Chronic Disorders of lipid metabolism (13 sources) Pure hypercholesterolemi a, unspecified; Translations: [Hypercholesterolem ia] Onset: 11-14-2021 Chronic Esophageal disorders (8 sources) Gastro-esophageal reflux disease with esophagitis; Translations: [Gastro-esophageal reflux disease with esophagitis, without bleeding] 2023 Chronic Esophageal disorders (4 sources) Esophageal disorders; Translations: [Gastro-esophageal reflux disease with esophagitis, without bleeding] Genitourinary symptoms and ill-defined conditions (17 sources) Retention of urine; Translations: [Retention of urine, unspecified] Onset: 04-18-2022 Episodic Hyperplasia of prostate (20 sources) Benign prostatic hyperplasia with lower urinary tract symptoms; Translations: [Benign prostatic hypertrophy with outflow obstruction] Onset: 04-12-2022 Chronic Inflammatory conditions of male genital organs (6 sources) Chronic prostatitis 03-16-2020 Chronic Open wounds of extremities (3 sources) Laceration of lower limb; Translations: [Laceration without foreign body, left lower leg, initial encounter] Onset: 09-02-2023 09-02-2023 Episodic Other aftercare (2 sources) Other fdc (current) drug therapy; Translations: [OTH FINANCIAL SERVICES SALES REPRESENTATIVE CURRENT DRUG THERAPY] Onset: 2021 Episodic Other aftercare (1 source) Taking high risk medication; Translations: [Other fdc (current) drug therapy] 09-27-2024 Episodic Other and unspecified benign neoplasm (5 sources) Benign neoplasm of colon; Translations: [Benign neoplasm of descending colon] Episodic Other congenital anomalies (2 sources) Porokeratosis; Translations: [Other specified congenital malformations of skin] 07-06-2024 Chronic Other connective tissue disease (2 sources) Pain in right foot; Translations: [Pain in right foot] 07-06-2024 Episodic Other ear and sense organ disorders (4 sources) Tinnitus; Translations: [Tinnitus, unspecified ear] 09-28-2023 Episodic Other ear and sense organ disorders (2 sources) Tinnitus, unspecified ear; Translations: [Tinnitus, unspecified] 09-28-2023 Episodic Other gastrointestinal disorders (6 sources) Chronic constipation 02-20-2021 Episodic Other gastrointestinal disorders (6 sources) Hyperplastic polyp of intestine 09-06-2020 Episodic Other male genital disorders (9 sources) Male erectile dysfunction, unspecified; Translations: [Erectile dysfunction] Onset: 04-18-2022 Chronic Other male genital disorders (5 sources) Pain in penis 10-04-2018 Chronic Other male genital disorders (6 sources) Spermatocele 03-16-2020 Episodic Other nervous system disorders (4 sources) Polyneuropathy; Translations: [Polyneuropathy, unspecified] 2023 Chronic Other nervous system disorders (2 sources) Polyneuropathy, unspecified; Translations: [Unspecified hereditary and idiopathic peripheral neuropathy] 09-28-2023 Chronic Other non-traumatic joint disorders (1 source) Pain in left hip Episodic Other nutritional; endocrine; and metabolic disorders (6 sources) Body mass index 25-29 - overweight 06-28-2020 Episodic Other screening for suspected conditions (not mental disorders or infectious disease) (12 sources) Other specified abnormal findings of blood [...] PROSTATE] Onset: 04-16-2022 Episodic Residual codes; unclassified (4 sources) Family history of cancer; Translations: [Family history of malignant neoplasm of prostate] Onset: 04-18-2022 Episodic Residual codes; unclassified (6 sources) Family history of prostate cancer 04-18-2022 Episodic Thyroid disorders (20 sources) Autoimmune thyroiditis; Translations: [Hypothyroidism] Onset: 01-01-2022 Chronic Unclassified (5 sources) Finding of sensation of bladder 02-20-2021 Unclassified (6 sources) Patient encounter status 06-28-2020 Viral infection (6 sources) Herpes zoster 02-20-2021 Episodic Results Test Name Value Interpretation Reference Range Facility Ambulatory Visit Summaryon 0 07-25-2024 Ambulatory Visit Summary Ambulatory Visit Summary CHANTEL BARBER :1950 Visit Date:07/25/2024 Ambulatory Visit Instructions Your Diagnosis Elevated PSA Prostate nodule BPH with urinary obstruction Family history of prostate cancer Tests Performed MRI Pelvis (Soft Tissue) w/ + w/o contrast -- Results Pending -- Please visit your patient portal for your results or contact your primary care physician. Your Care Team Attending Physician - Stanley [...] Urodynamics (04/17/2011), Cystoscopy (03/21/2011), Tonsillectomy. Discharge Vitals Temperature (Temporal Artery) 35.5 ???C Heart Rate (Peripheral) 55 Respiratory Rate 16 Blood Pressure 138/70 Height 185 cm Height 73 in Weight 91 kg Weight 200.62 lb BMI 26.59 What to do next Scheduled Follow-Up Appointments Thursday2025 8:45 AM EDT With: Where: [facility] [address] [place] [address]- Thursday2025 8:45 AM EDT With: Stanley PALACIOS MD Where: [facility] [address] [place] [address]- You Need to Schedule the Following Appointments Follow Up with Stanley PALACIOS MD, URL When: Where: [facility] [address] , [place] [address]- Medications What How Much When Instructions Unchanged tamsulosin (tamsulosin 0.4 mg Cap) 1 Capsules By Mouth Every day Unchanged albuterol (Albuterol (Eqv-ProAir HFA) 90 mcg/ inh inhalation aerosol) INHALE 2 PUFFS BY MOUTH EVERY 6 HOURS NEEDED Contact prescribing physician if questions or concerns Unchanged levothyroxine (levothyroxine 100 mcg (0.1 mg) Tab) 1 Tablets By Mouth Every day Contact prescribing physician if questions or concerns Unchanged multivitamin (Multi Vitamin+) Contact prescribing physician if questions or concerns Unchanged omeprazole (omeprazole 40 mg Cap-DR) By Mouth Every day Contact prescribing physician if questions or concerns Allergies Dust (Sneezing) SugarUp (Sneezing) Problems Ongoing - Any problem that you are currently receiving treatment for. BMI 25.0-25.9,adult BPH with urinary obstruction Chronic constipation Chronic prostatitis Elevated PSA Erectile dysfunction Family history of prostate cancer Hyperplastic polyp of sigmoid colon Hypothyroidism Prostate nodule Screening for malignant neoplasm of colon Shingles Spermatocele Patient Survey You may receive a survey via text or e-mail asking about your office visit. Please share your experience with us by completing your survey. We appreciate your feedback and thank you for choosing us for your care. Education Materials Prostate Cancer Screening Prostate cancer screening is [...] recommendations. In general, screening is recommended if: ??? You are age 50 to 70 and [...] have a 10- to 15-year life expectancy. ??? You are younger than age 50, and [...] In general, screening is not recommended if: ??? You are younger than age 40. ??? You are between the ages of 40 and 49 and you have no risk factors. ??? You are 70 years of age or older. At this age, the risks that screening can cause are greater than the be (more content not included)... [facility] Urology Office/Clinic Noteon 07-25-2024 Urology Office/Clinic Note Urology Office/Clinic Note Chief Complaint 1 year follow up with PSA HPI Staff 1 year f/u with PSA Dx: elevated PSA, prostate nodule, family hx of prostate cancer (brother), BPH and ED. PSA: 01/18/24 - 3.51 07/18/24 - 4.1 Tamsulosin 0.4 mg qd needs refill send to [facility] [place] IPSS: 1, NANI: 23 Denies visible blood, denies dysuria, denies abdominal/flank pain History of Present Illness Tests reviewed: UA, PSA I have reviewed the previous [...] See HPI. Physical Exam Vitals & Measurements T: 35.5 ???C(Temporal Artery) HR: 55(Peripheral) RR: 16 BP: 138/70 HT: 73 in HT: 185 cm WT: 200.62 lb WT: 91 kg BMI: 26.59 General Appearance: alert, no distress, well nourished, well developed male. LUCIE - 45 g, indurated on the R mid to base. Stable. Assessment/Plan 1. Elevated PSA (R97.20: Elevated prostate specific antigen [PSA]) PSA: 02/07/20 - 2.69 04/05/21 - 2.98 04/12/22 - 2.86 07/15/23 - 3.64 07/18/24 - 4.10 No hx of prostate MRI. LUCIE 04/18/22 - Indurated right side, larger than left. TRUS/bx 05/13/22 - Neg. LUCIE 07/20/23 - 45g, indurated on right mid to base. PSA slightly increased. Given family hx and chronically indurated prostate per LUCIE, recommended prostate MRI since this is essentially the only tool missing from his profile. If a positive lesion is found, would proceed with a fusion bx. If neg, would cont to monitor PSA. Pt agreeable. LUCIE - 45 g, indurated on the R mid to base. Stable. Follow up MRI below or sooner if needed. Pt understands and agrees with plan. Follow up pending prostate MRI below or sooner if needed. Pt understands and agrees with plan. -Schedule prostate MRI, if neg will f/u in 6 mos with PSA F&T, if pos will proceed with fusion bx below -Will schedule possible fusion TRUS of Prostate with Biopsy pending MRI above. The procedural risks, benefits, details, and treatment alternatives have been discussed with the patient. These include minimal to severe bleeding, infection, blood in the semen, inability to urinate, and severe infection requiring hospitalization and IV antibiotics, among others. Full informed consent has been obtained. Will order Local anesthesia. 2. Prostate nodule (N40.2: Nodular prostate without lower urinary tract symptoms) See #1. Chronic. 3. BPH with urinary obstruction (N40.1: Benign prostatic hyperplasia with lower urinary tract symptoms) S/p TURP 2011. Taking Tamsulosin 0.4mg qd. No urinary complaints. 4. Family history of prostate cancer (Z80.42: Family history of malignant neoplasm of prostate) Brother had prostate cancer ~10 yrs ago [1], had prostatectomy. Follow-up With When Contact Information RAMÓN HARDING, Stanley Jama, [facility] [address], [place] [address]- Additional Instructions: f/u pending prostate MRI Patient Education Prostate Cancer Screening I, Sunita Kong, personally scribed for Dr. Palacios on 07/25/2024 09:32:29. . Documentation recorded by the scribe, Sunita Kong, accurately reflects the services(s) I performed and decisions made by me. Authenticated by Dr. Palacios on 07/25/2024 09:33:32. Problem List/Past Medical History Ongoing BMI 25.0-25.9,adult BPH with urinary obstruction Chronic constipation Chronic prostatitis Elevated PSA Erectile dysfunction Family history of prostate cancer Hyperplastic polyp of sigmoid colon Hypothyroidism Prostate nodule Screening for malignant neoplasm of colon Shingles Spermatocele Historical No qualifying data Procedure/Surgical History Transrectal [...] Dust (Sneezing) SugarUp (Sneezing) Social History Alcohol Current. none. 1-2 times per year., 07/25/2024 Substance Abuse Never., 07/24/2024 Tobacc (more content not included)... [facility] Comment on above: Result Comment: Elec tronically Signed By: Stanley PALACIOS MD\.br\Date and Time Signed: 07/25/24 09:33 EDT\.br\Electronically Co-Signed By: Sunita Kong\.br\Date and Time Co-Signed: 07/25/24 09:32 EDT Ambulatory Visit Summaryon 0 07-18-2024 Ambulatory Visit Summary Ambulatory Visit Summary CHANTEL BARBER :1950 Visit Date:07/18/2024 Ambulatory Visit Instructions Your Care Team Attending Physician - Stanley PALACIOS MD Primary Care Physician - DAMIR LI DO This Is Your Medications List albuterol (Albuterol (Eqv-ProAir HFA) 90 mcg/inh inhalation aerosol) levothyroxine (levothyroxine 100 mcg (0.1 mg) Tab) multivitamin (Multi Vitamin+) omeprazole (omeprazole 40 mg Cap-DR) tamsulosin (tamsulosin 0.4 mg Cap) Procedures Performed Transrectal biopsy of prostate using ultrasound (US) guidance (05/13/2022), Cystoscopy (01/09/2014), TURP - Transurethral resection of prostate (07/31/2011), Urodynamics (04/17/2011), Cystoscopy (03/21/2011), Tonsillectomy. What to do next Scheduled Follow-Up Appointments Thursday 9:00 AM EDT With: Stanley PALACIOS MD Where: [facility] [address] [place] [address] [place] [address]- Medications What How Much When Instructions Unchanged albuterol (Albuterol (Eqv-ProAir HFA) 90 mcg/ inh inhalation aerosol) INHALE 2 PUFFS BY MOUTH EVERY 6 HOURS NEEDED Unchanged levothyroxine (levothyroxine 100 mcg (0.1 mg) Tab) 1 Tablets By Mouth Every day Unchanged multivitamin (Multi Vitamin+) Unchanged omeprazole (omeprazole 40 mg Cap-DR) By Mouth Every day Unchanged tamsulosin (tamsulosin 0.4 mg Cap) 1 Capsules By Mouth Every day Allergies Dust (Sneezing) SugarUp (Sneezing) Problems Ongoing - Any problem that you are currently receiving treatment for. Benign prostatic hypertrophy with outflow obstruction BMI 25.0-25.9,adult Chronic constipation Chronic prostatitis Elevated PSA Erectile dysfunction Family history of prostate cancer Feeling of incomplete bladder emptying Hyperplastic polyp of sigmoid colon Hypothyroidism Microscopic hematuria Penile pain Prostate nodule Screening for malignant neoplasm of colon Shingles Spermatocele Urinary retention Weak urine stream Patient Survey You may receive a survey via text or e-mail asking about your office visit. Please share your experience with us by completing your survey. We appreciate your feedback and thank you for choosing us for your care. [facility] CHEMISTRYOrdered By: SYSTEM SYSTEM on 07-18-2024 Prostate specific Ag [Mass/Vol] 4.1 ng/mL High 0.1 - 3.5 ng/mL Rem[facility] Chem Comment on above: Interpretive Data: T he concentration of PSA determined by different manufacturers can vary due to differences in assay methods and reagent specificity. Values obtained from different assay methods cannot be used interchangeably. The methodology used for this result was chemiluminescence using [employer] Access Hybritech PSA reagent. PSA Totalon 07-18-2024 PSA Total 4.1 ng/mL High 0.1-3.5 [facility] Comment on above: Result Comment: The concentration of PSA determined by different manufacturers can vary due to differences in assay methods and reagent specificity. Values obtained from different assay methods cannot be used interchangeably. The methodology used for this result was chemiluminescence using [employer] Access Hybritech PSA reagent. Performed By: #### 1 [id number] #### [facility] [address] [place] [address] Basophils Auto (Bld) [#/Vol] on 09-29-2023 Basophils (Bld) [#/Vol] 0.1 10 3/uL 0.0-0.1 [facility] Basophils/100 WBC Auto (Bld) on 09-29-2023 Basophils/100 WBC (Bld) 1.5 % 0.2-2.0 [facility] Eosinophils/100 WBC Auto (Bl d)on 09-29-2023 Eosinophils/100 WBC (Bld) 10.5 % High 0.9-7.0 [facility] Erythrocyte distribution wid th Auto (RBC) [Ratio]on 09-29-2023 Erythrocyte distribution width (RBC) [Ratio] 13.3 % 11.0-15.0 [facility] Estimated glomerular filtrat ion rate (GFR) non- Americanon 09-29-2023 GFR/1.73 sq M.predicted among non-blacks MDRD (S/P/Bld) [Vol rate/Area] mL/min/{1.73_m2} >=60 [facility] Globulin Calc (S) [Mass/Vol] on 09-29-2023 Globulin (S) [Mass/Vol] 3.2 g/dL [facility] Hematocrit Auto (Bld) [Volum e fraction]on 09-29-2023 Hematocrit (Bld) [Volume fraction] 46.2 % 42.0-54.0 [facility] Hemoglobin [Mass/volume] in Bloodon 09-29-2023 Hemoglobin (Bld) [Mass/Vol] 14.7 g/dL 14.0-18.0 [facility] Laboratory - Chemistry and C hemistry - challengeon 09-29-2023 Albumin [Mass/Vol] 3.7 g/dL 3.4-5.0 [facility] ALP [Catalytic activity/Vol] 64 U/L 46-116 [facility] ALT [Catalytic activity/Vol] 42 U/L 16-63 [facility] AST [Catalytic activity/Vol] 24 U/L 15-37 [facility] Bilirubin [Mass/Vol] 0.5 mg/dL 0.2-1.0 [facility] Calcium [Mass/Vol] 8.8 mg/dL 8.5-10.1 [facility] Chloride [Moles/Vol] 105 mmol/L 98-107 [facility] CO2 [Moles/Vol] 28.9 mmol/L 21.0-32.0 [facility] Cobalamin (Vitamin B12) [Mass/Vol] 552.0 pg/mL 193.0-986.0 [facility] Creatinine [Mass/Vol] 1.15 mg/dL 0.70-1.30 [facility] GFR/1.73 sq M.predicted MDRD (S/P/Bld) [Vol rate/Area] mL/min/{1.73_m2} >=60 [facility] Glucose [Mass/Vol] 103 mg/dL 74-106 [facility] Potassium [Moles/Vol] 4.0 mmol/L 3.5-5.1 [facility] Protein [Mass/Vol] 6.9 g/dL 6.4-8.2 [facility] Sodium [Moles/Vol] 141 mmol/L 136-145 [facility] TSH Qn 5.339 m[IU]/L High 0.358-3.740 [facility] Urea nitrogen [Mass/Vol] 23.0 mg/dL High 7.0-18.0 [facility] Urea nitrogen/Creatinine [Mass ratio] 20.0 mg/mg [facility] Laboratory - Hematology and Cell countson 09-29-2023 Immature granulocytes/100 WBC (Bld) 0.3 % 0.0-0.5 [facility] Leukocytes [#/volume] correc kaylee for nucleated erythrocytes in Blood by Automated counon 09-29-2023 WBC corrected for nucl RBC Auto (Bld) [#/Vol] 6.2 10 3/uL 4.0-11.0 [facility] Lymphocytes Auto (Bld) [#/Vo l]on 09-29-2023 Lymphocytes (Bld) [#/Vol] 1.4 10 3/uL 1.2-3.8 [facility] Lymphocytes/100 WBC Auto (Bl d)on 08-13-2024 Lymphocytes/100 WBC (Bld) 23.2 % 20.5-60.0 [facility] MCH Auto (RBC) [Entitic mass ]on 09-29-2023 MCH (RBC) [Entitic mass] 30.2 pg 25.9-34.0 [facility] MCHC Auto (RBC) [Mass/Vol]on 09-29-2023 MCHC (RBC) [Mass/Vol] 31.8 g/dL 29.9-35.2 [facility] MCV Auto (RBC) [Entitic vol] on 09-29-2023 MCV (RBC) [Entitic vol] 94.9 fL High 80.0-94.0 [facility] Monocytes Auto (Bld) [#/Vol] on 09-29-2023 Monocytes (Bld) [#/Vol] 0.5 10 3/uL 0.3-0.8 [facility] Monocytes/100 WBC Auto (Bld) on 09-29-2023 Monocytes/100 WBC (Bld) 7.9 % 1.7-12.0 [facility] Neutrophils Auto (Bld) [#/Vo l]on 09-29-2023 Neutrophils (Bld) [#/Vol] 3.5 10 3/uL 1.4-6.5 [facility] Neutrophils/100 WBC Auto (Bl d)on 09-29-2023 Neutrophils/100 WBC (Bld) 56.6 % 43.0-75.0 [facility] No Panel Informationon 09-28 Eosinophils # (Auto) 0.7 10 3/uL 0.0-0.7 [facility] Immature Granulocyte # (Auto) 0.02 10 3/uL 0.00-0.03 [facility] Platelet mean volume Auto (B ld) [Entitic vol]on 09-29-2023 Platelet mean volume (Bld) [Entitic vol] 9.4 fL Low 9.5-13.5 [facility] Platelets Auto (Bld) [#/Vol] on 09-29-2023 Platelets (Bld) [#/Vol] 231 10 3/uL 150-450 [facility] RBC Auto (Bld) [#/Vol]on RBC (Bld) [#/Vol] 4.87 10 6/uL 4.70-6.10 [facility] Serum or plasma albumin/glob ulin mass ratioon 09-29-2023 Albumin/Globulin [Mass ratio] 1.2 {ratio} [facility] Serum or plasma anion gap de terminationon 09-29-2023 Anion gap [Moles/Vol] 11.1 mmol/L [facility] No Panel Informationon 07-14 Prostate Specific Antigen Total 3.64 ng/mL <=4.00 [facility] FREE T4on 01-01-2022 Free T4 [Mass/Vol] 0.98 ng/dL Normal 0.76-1.46 [facility] Comment on above: Performed By: #### F T4 #### [facility] [address] [place] [address] Dr. Sylvia Calix TSHon 01-01-2022 TSH 6.797 uIU/mL Critically high 0.358-3.740 [facility] Comment on above: Performed By: #### T SH #### [facility] [address] [place] [address] Dr. Sylvia Calix LIPID PROFILEon 11-13-2021 CHOL-HDL RATIO NORM SEE BELOW Normal [facility] Comment on above: Result Comment: 3.3 - 4.4 LOW RISK 4.4 - 7.1 AVERAGE RISK 7.1 - 11.0 MODERATE RISK >11.0 HIGH RISK Performed By: #### L IPID #### [facility] [address] [address] [address] Sylvia Calix Cholesterol [Mass/Vol] 199 mg/dL Normal <=200 [facility] Comment on above: Performed By: #### L IPID #### [facility] [address] [address] [address] Sylvia Calix Cholesterol in HDL [Mass/Vol] 37 mg/dL Critically low 40-60 [facility] Comment on above: Performed By: #### L IPID #### [facility] [address] [address] [address] Sylvia Calix Cholesterol in LDL [Mass/Vol] 127.6 mg/dL Normal [facility] Comment on above: Performed By: #### L IPID #### [facility] [address] [address] [address] Sylvia Calix Cholesterol.total/Cho lesterol in HDL [Mass ratio] 5.4 {ratio} Normal [facility] Comment on above: Performed By: #### L IPID #### [facility] [address] [address] [address] Sylvia Calix HDL NORMAL > or = 60 mg/dl - LO W CARDIOVASCULAR RISK <40 mg/dl - HIGH CARDIOVASCULAR RISK Normal [facility] Comment on above: Performed By: #### L IPID #### [facility] [address] [place] [address] Dr. Sylvia Calix LDL CALC NORMAL SEE BELOW Normal [facility] Comment on above: Result Comment: <100 mg/dl OPTIMAL 100 - 129 mg/dl NEAR OR ABOVE OPTIMAL 130 - 159 mg/dl BORDERLINE HIGH 160 - 189 mg/dl HIGH >190 mg/dl VERY HIGH Performed By: #### L IPID #### [facility] [address] [place] [address] Dr. Sylvia Calix Triglyceride [Mass/Vol] 172 mg/dL Critically high <=150 [facility] Comment on above: Performed By: #### L IPID #### [facility] [address] [place] [address] Dr. Sylvia Calix VLDL CALC 34.4 mg/dL Normal [facility] Comment on above: Performed By: #### L IPID #### [facility] [address] [address] [address] Sylvia Calix TSHon 11-13-2021 TSH 9.004 uIU/mL Critically high 0.358-3.740 [facility] Comment on above: Performed By: #### T SH #### [facility] [address] [place] [address] Dr. Sylvia Calix CBC AUTO DIFFon 09-25-2021 BASO # 0.1 103/ul Normal 0.0-0.1 [facility] Comment on above: Performed By: #### C BC #### [facility] [address] [address] [address] Sylvia Calix Basophils/100 WBC (Bld) 1.0 % Normal 0.2-2.0 [facility] Comment on above: Performed By: #### C BC #### [facility] [address] [address] [address] Sylvia Calix EO # 0.5 103/ul Normal 0.0-0.7 [facility] Comment on above: Performed By: #### C BC #### [facility] [address] [address] [address] Sylvia Calix Eosinophils/100 WBC (Bld) 7.3 % Critically high 0.9-7.0 [facility] Comment on above: Performed By: #### C BC #### [facility] [address] [place] [address] Dr. Sylvia Calix Erythrocyte distribution width (RBC) [Ratio] 13.4 % Normal 11.0-15.0 [facility] Comment on above: Performed By: #### C BC #### [facility] [address] [place] [address] Dr. Sylvia Calix Hematocrit (Bld) [Volume fraction] 45.9 % Normal 42.0-54.0 [facility] Comment on above: Performed By: #### C BC #### [facility] [address] [place] [address] Dr. Sylvia Calix Hemoglobin (Bld) [Mass/Vol] 15.0 g/dL Normal 14.0-18.0 [facility] Comment on above: Performed By: #### C BC #### [facility] [address] [place] [address] Dr. Sylvia Calix IG # 0.04 10e3/ul Critically high 0.00-0.03 [place] Comment on above: Performed By: #### C BC #### [facility] [address] [place] [address] Dr. Sylvia Calix IG % 0.6 % Critically high 0.0-0.5 [facility] Comment on above: Performed By: #### C BC #### [facility] [address] [place] [address] Dr. Sylvia Calix LYMPH # 1.5 103/ul Normal 1.2-3.8 [facility] Comment on above: Performed By: #### C BC #### [facility] [address] [place] [address] Dr. Sylvia Calix Lymphocytes/100 WBC (Bld) 24.3 % Normal 20.5-60.0 [facility] Comment on above: Performed By: #### C BC #### [facility] [address] [place] [address] Dr. Sylvia Calix MANUAL DIFF REQ NO Normal [facility] Comment on above: Performed By: #### C BC #### [facility] [address] [place] [address] Dr. Sylvia Calix MCH (RBC) [Entitic mass] 30.4 pg Normal 25.9-34.0 [facility] Comment on above: Performed By: #### C BC #### [facility] [address] [place] [address] Dr. Sylvia Calix MCHC (RBC) [Mass/Vol] 32.7 g/dL Normal 29.9-35.2 [facility] Comment on above: Performed By: #### C BC #### [facility] [address] [place] [address] Dr. Sylvia Calix MCV (RBC) [Entitic vol] 93.1 fL Normal 80.0-94.0 [facility] Comment on above: Performed By: #### C BC #### [facility] [address] [place] [address] Dr. Sylvia Calix MONO # 0.5 103/ul Normal 0.3-0.8 [facility] Comment on above: Performed By: #### C BC #### [facility] [address] [place] [address] Dr. Sylvia Calix Monocytes/100 WBC (Bld) 7.8 % Normal 1.7-12.0 [facility] Comment on above: Performed By: #### C BC #### [facility] [address] [address] [address] Sylvia Calix NEUT # 3.7 103/ul Normal 1.4-6.5 [facility] Comment on above: Performed By: #### C BC #### [facility] [address] [place] [address] Dr. Sylvia Calix Neutrophils/100 WBC (Bld) 59.0 % Normal 43.0-75.0 [facility] Comment on above: Performed By: #### C BC #### [facility] [address] [place] [address] Dr. Sylvia Calix Platelet mean volume (Bld) [Entitic vol] 9.3 fL Critically low 9.5-13.5 [facility] Comment on above: Performed By: #### C BC #### [facility] [address] [place] [address] Dr. Sylvia Calix PLT 244 103/ul Normal 150-450 [facility] Comment on above: Performed By: #### C BC #### [facility] [address] [place] [address] Dr. Sylvia Calix RBC 4.93 106/ul Normal 4.70-6.10 [facility] Comment on above: Performed By: #### C BC #### [facility] [address] [place] [address] Dr. Sylvia Calix WBC 6.3 103/ul Normal 4.0-11.0 [facility] Comment on above: Performed By: #### C BC #### [facility] [address] [place] [address] Dr. Sylvia Calix LIPID PROFILEon 09-25-2021 CHOL-HDL RATIO NORM SEE BELOW Normal [facility] Comment on above: Result Comment: 3.3 - 4.4 LOW RISK 4.4 - 7.1 AVERAGE RISK 7.1 - 11.0 MODERATE RISK >11.0 HIGH RISK Performed By: #### L IPID, TSH, BMP #### [facility] [address] [place] [address] Dr. Sylvia Calix Cholesterol [Mass/Vol] 198 mg/dL Normal <=200 [facility] Comment on above: Performed By: #### L IPID, TSH, BMP #### [facility] [address] [address] [address] Sylvia Calix Cholesterol in HDL [Mass/Vol] 34 mg/dL Critically low 40-60 [facility] Comment on above: Performed By: #### L IPID, TSH, BMP #### [facility] [address] [address] [address] Sylvia Calix Cholesterol in LDL [Mass/Vol] 132.0 mg/dL Normal [facility] Comment on above: Performed By: #### L IPID, TSH, BMP #### [facility] [address] [address] [address] Sylvia Calix Cholesterol.total/Cho lesterol in HDL [Mass ratio] 5.8 {ratio} Normal [facility] Comment on above: Performed By: #### L IPID, TSH, BMP #### [facility] [address] [address] [address] Sylvia Calix HDL NORMAL > or = 60 mg/dl - LO W CARDIOVASCULAR RISK <40 mg/dl - HIGH CARDIOVASCULAR RISK Normal [facility] Comment on above: Performed By: #### L IPID, TSH, BMP #### [facility] [address] [place] [address] Dr. Sylvia Calix LDL CALC NORMAL SEE BELOW Normal [facility] Comment on above: Result Comment: <100 mg/dl OPTIMAL 100 - 129 mg/dl NEAR OR ABOVE OPTIMAL 130 - 159 mg/dl BORDERLINE HIGH 160 - 189 mg/dl HIGH >190 mg/dl VERY HIGH Performed By: #### L IPID, TSH, BMP #### [facility] [address] [address] [address] Sylvia Calix Triglyceride [Mass/Vol] 160 mg/dL Critically high <=150 [facility] Comment on above: Performed By: #### L IPID, TSH, BMP #### [facility] [address] [place] [address] Dr. Sylvia Calix VLDL CALC 32.0 mg/dL Normal [facility] Comment on above: Performed By: #### L IPID, TSH, BMP #### [facility] [address] [place] [address] Dr. Sylvia Calix PROF CHEM 8 (BAS METB)on Anion gap [Moles/Vol] 13.8 mmol/L Normal [facility] Comment on above: Performed By: #### L IPID, TSH, BMP #### [facility] [address] [place] [address] Dr. Sylvia Calix Calcium [Mass/Vol] 9.0 mg/dL Normal 8.5-10.1 [facility] Comment on above: Performed By: #### L IPID, TSH, BMP #### [facility] [address] [place] [address] Dr. Sylvia Calix Chloride [Moles/Vol] 106 mmol/L Normal 98-107 [facility] Comment on above: Performed By: #### L IPID, TSH, BMP #### [facility] [address] [place] [address] Dr. Sylvia Calix CO2 [Moles/Vol] 27.6 mmol/L Normal 21.0-32.0 [facility] Comment on above: Performed By: #### L IPID, TSH, BMP #### [facility] [address] [place] [address] Dr. Sylvia Calix Creatinine [Mass/Vol] 1.15 mg/dL Normal 0.70-1.30 [facility] Comment on above: Performed By: #### L IPID, TSH, BMP #### [facility] [address] [place] [address] Dr. Sylvia Calix EGFR-AF BOTSWANAN >60 Normal >=60 [facility] Comment on above: Performed By: #### L IPID, TSH, BMP #### [facility] [address] [place] [address] Dr. Sylvia Calix EGFR-NON AF BOTSWANAN >60 Normal >=60 [facility] Comment on above: Performed By: #### L IPID, TSH, BMP #### [facility] [address] [place] [address] Dr. Syvlia Calix Glucose [Mass/Vol] 103 mg/dL Normal 74-106 [facility] Comment on above: Performed By: #### L IPID, TSH, BMP #### [facility] [address] [place] [address] Dr. Sylvia Calix Potassium [Moles/Vol] 4.4 mmol/L Normal 3.5-5.1 [facility] Comment on above: Performed By: #### L IPID, TSH, BMP #### [facility] [address] [place] [address] Dr. Sylvia Calix Sodium [Moles/Vol] 143 mmol/L Normal 136-145 [facility] Comment on above: Performed By: #### L IPID, TSH, BMP #### [facility] [address] [place] [address] Dr. Sylvia Calix Urea nitrogen [Mass/Vol] 20.0 mg/dL Critically high 7.0-18.0 [facility] Comment on above: Performed By: #### L IPID, TSH, BMP #### [facility] [address] [place] [address] Dr. Sylvia Calix Urea nitrogen/Creatinine [Mass ratio] 17.4 mg/mg Normal [facility] Comment on above: Performed By: #### L IPID, TSH, BMP #### [facility] [address] [place] [address] Dr. Sylvia Calix TSHon 09-25-2021 TSH 6.272 uIU/mL Critically high 0.358-3.740 [facility] Comment on above: Performed By: #### L IPID, TSH, BMP #### [facility] [address] [place] [address] Dr. Sylvia Calix Vital Signs Date Time Vital Sign Value Performing Clinician Facility 09-27-2024 08:38-0400 Body height 185.42 cm [employer] Work Phone: [facility] 09-27-2024 08:38-0400 Body mass index (BMI) [Ratio] 25.6 kg/m2 [employer] Work Phone: [facility] 09-27-2024 08:38-0400 Body weight 88.22 kg [employer] Work Phone: [facility] 09-27-2024 08:38-0400 Diastolic blood pressure 81 mm[Hg] Damir Ball DO Work Phone: [facility] 09-27-2024 08:38-0400 Heart rate 75 /min Damir Ball DO Work Phone: [facility] 09-27-2024 08:38-0400 Respiratory rate 12 /min Damir Ball DO Work Phone: [facility] 09-27-2024 08:38-0400 Systolic blood pressure 138 mm[Hg] Damir Ball DO Work Phone: [facility] 07-06-2024 09:44-0400 Body height 185.4 cm Preet Jeri DPM Work Phone: [facility] 07-06-2024 09:44-0400 Body mass index (BMI) [Ratio] 25.73 kg/m2 Preet Wilcox DPM Work Phone: [facility] 07-06-2024 09:44-0400 Body weight 88.45 kg Preet Wilcox DPM Work Phone: [facility] 10-17-2023 09:42-0400 Body height 185.42 cm [facility] 10-17-2023 09:42-0400 Body mass index (BMI) [Ratio] 26 kg/m2 [facility] 10-17-2023 09:42-0400 Body temperature 97.1 [degF] [facility] 10-17-2023 09:42-0400 Body weight 89.52 kg [facility] 10-17-2023 09:42-0400 Diastolic blood pressure 86 mm[Hg] [facility] 10-17-2023 09:42-0400 Heart rate 68 /min [facility] 10-17-2023 09:42-0400 Respiratory rate 18 /min [facility] 10-17-2023 09:42-0400 SaO2% (BldA) [Mass fraction] 93 % [facility] 10-17-2023 09:42-0400 Systolic blood pressure 132 mm[Hg] [facility] 09-28-2023 08:43-0400 Diastolic blood pressure 81 mm[Hg] [facility] 09-28-2023 08:43-0400 Heart rate 59 /min [facility] 09-28-2023 08:43-0400 Respiratory rate 12 /min [facility] 09-28-2023 08:43-0400 Systolic blood pressure 124 mm[Hg] [facility] 09-02-2023 22:05-0400 Body temperature 97.9 [degF] Damir Ball DO Work Phone: [facility] 09-02-2023 22:05-0400 Diastolic blood pressure 93 mm[Hg] Damir Ball DO Work Phone: [facility] 09-02-2023 22:05-0400 Heart rate 71 /min Damir Ball DO Work Phone: [facility] 09-02-2023 22:05-0400 Respiratory rate 17 /min Damir Ball DO Work Phone: [facility] 09-02-2023 22:05-0400 SaO2% (BldA) [Mass fraction] 98 % Damir Ball DO Work Phone: [facility] 09-02-2023 22:05-0400 Systolic blood pressure 177 mm[Hg] Damir Ball DO Work Phone: [facility] 09-02-2023 22:02-0400 Body height 185.4 cm Damir Ball DO Work Phone: [facility] 09-02-2023 22:02-0400 Body mass index (BMI) [Ratio] 25.73 kg/m2 Damir Ball DO Work Phone: [facility] 09-02-2023 22:02-0400 Body weight 88.45 kg Damir Ball DO Work Phone: [facility] 07-20-2023 09:57-0400 Blood Pressure Location Stanley RAMÓN [facility] 07-20-2023 09:57-0400 Diastolic blood pressure 89 mm[Hg] Stanley PALACIOS [facility] 07-20-2023 09:57-0400 Heart rate 72 /min Stanley PALACIOS [facility] 07-20-2023 09:57-0400 Respiratory rate 16 /min Stanley PALACIOS [facility] 07-20-2023 09:57-0400 Systolic blood pressure 132 mm[Hg] Stanley PALACIOS [facility] 11-04-2022 08:45-0400 Body height 185.42 cm Damir Ball Other [employer] Other 11-04-2022 08:45-0400 Body mass index (BMI) [Ratio] 25.49 kg/m2 Damir Ball Other [employer] Other 11-04-2022 08:45-0400 Body weight 87.64 kg Damir Ball Other [employer] Other 11-04-2022 08:45-0400 Diastolic blood pressure 87 mm[Hg] Damir Ball Other [employer] Other 11-04-2022 08:45-0400 Respiratory rate 12 /min Damir Ball Other [employer] Other 11-04-2022 08:45-0400 SaO2% (BldA) [Mass fraction] 96 % Damir Ball Other [employer] Other 11-04-2022 08:45-0400 Systolic blood pressure 148 mm[Hg] Damir Ball Other [employer] Other 09-24-2022 14:00-0400 Body height 185.42 cm Damir Ball Other [employer] Other 09-24-2022 14:00-0400 Body mass index (BMI) [Ratio] 25.59 kg/m2 Damir Ball Other [employer] Other 09-24-2022 14:00-0400 Body weight 88 kg Damir Ball Other [employer] Other 09-24-2022 14:00-0400 Diastolic blood pressure 90 mm[Hg] Damir Ball Other [employer] Other 09-24-2022 14:00-0400 Systolic blood pressure 133 mm[Hg] Damir Ball Other [employer] Other 05-30-2022 09:20-0400 Blood Pressure Location Stanley PALACIOS [facility] 05-30-2022 09:20-0400 Diastolic blood pressure 80 mm[Hg] Stanley PALACIOS [facility] 05-30-2022 09:20-0400 Heart rate 71 /min Stanley PALACIOS [facility] 05-30-2022 09:20-0400 Respiratory rate 16 /min Stanley PALACIOS [facility] 05-30-2022 09:20-0400 Systolic blood pressure 122 mm[Hg] Stanley PALACIOS [facility] 04-18-2022 08:33-0500 Blood Pressure Location Stanley PALACIOS [facility] 04-18-2022 08:33-0500 Diastolic blood pressure 81 mm[Hg] Stanley PALACIOS [facility] 04-18-2022 08:33-0500 Heart rate 72 /min Stanley PALACIOS [facility] 04-18-2022 08:33-0500 Respiratory rate 16 /min Stanley PALACIOS [facility] 04-18-2022 08:33-0500 Systolic blood pressure 128 mm[Hg] Stanley PALACIOS [facility] Encounters Encounter Date Encounter Type Care Provider Facility Start: 07-24-2025 ambulatory Stanley PALACIOS Facili ty:[facility] [facility] Start: 07-17-2025 ambulatory Stanley PALACIOS Facili ty:[facility] Start: 09-27-2024 End: 09-27-2024 ambulatory Damir Li DO [facility] Work Phone: Start: 09-27-2024 End: 09-27-2024 Patient encounter procedure Damir Li DO -[facility] Work Phone: Start: 07-25-2024 End: 07-25-2024 ambulatory Stanley PALACIOS Facility:[facility] Start: 07-25-2024 End: 07-25-2024 Patient encounter procedure Stanley PALACIOS [facility] Start: 07-18-2024 End: 07-18-2024 Lab Drop off Stanley PALACIOS [facility] Start: 07-18-2024 End: 07-18-2024 ambulatory Stanley PALACIOS Facility[facility] Start: 07-18-2024 End: 07-18-2024 Patient encounter procedure Stanley PALACIOS [facility] Start: 07-06-2024 End: 07-06-2024 Bamboo flowsheet Preet Wilcox DPM Work Phone: [facility] Start: 07-06-2024 End: 07-06-2024 Bamboo flowsheet Preet Wilcox DPM Work Phone: [facility] Start: 07-06-2024 End: 07-06-2024 Office outpatient visit 15 minutes Preet Wilcox DPM Work Phone: [facility] Comment on above: Porokeratosis (Prima ry Dx); Right foot pain Start: 07-06-2024 End: 07-06-2024 ambulatory PREET WILCOX Not Available Start: 10-17-2023 End: 10-17-2023 ambulatory [facility] Work Phone: Start: 10-17-2023 End: 10-17-2023 Patient encounter procedure [facility] Sukumar Work Phone: Start: 09-29-2023 Non-patient / Non-visit [facility] Work Phone: Start: 09-28-2023 End: 09-28-2023 ambulatory [facility] Work Phone: Start: 09-28-2023 End: 09-28-2023 Patient encounter procedure [facility] Work Phone: Start: 09-02-2023 End: 09-02-2023 Emergency department patient visit DAMIR LI [facility] Start: 07-20-2023 End: 07-20-2023 Patient encounter procedure Stanley PALACIOS [facility] Start: 07-15-2023 Non-patient / Non-visit [facility] [employer] Work Phone: Start: 03-23-2023 End: 03-23-2023 ambulatory Damir Guillermo Other [facility] Other Start: 03-23-2023 Telephone encounter Damir Li [facility] Start: 12-26-2022 End: 12-26-2022 ambulatory Damir Li Other [facility] Other Start: 12-26-2022 Telephone encounter Damir Li [facility] Start: 11-04-2022 End: 11-04-2022 ambulatory Damir Li Other [facility] Other Start: 11-04-2022 Office outpatient vi sit 15 minutes Damir Li [facility] Start: 10-02-2022 End: 10-02-2022 ambulatory Damir Li Other [facility] Other Start: 10-02-2022 Telephone encounter Damir Li [facility] Start: 09-24-2022 End: 09-24-2022 ambulatory Damir Guillermo Other [facility] Other Start: 09-24-2022 Patient encounter procedure Damir Li [facility] Start: 05-30-2022 End: 05-30-2022 Patient encounter procedure Stanley PALACIOS [facility] Start: 04-18-2022 End: 04-18-2022 Patient encounter procedure Stanley PALACIOS [facility] Start: 04-12-2022 End: 04-13-[address] DAMIR [...] above: Performed By: #### P SAD #### [facility] [address] [place] [address] Dr. Sylvia Calix Start: 01-09-2014 Cystoscopy Stanley LANDON Start: 03-31-2013 Colonoscopy Preet titus DPM Work Phone: Start: 07-31-2011 Transurethral prostatectomy Stanley PALACIOS Start: 04-17-2011 Urodynamic studies Patr ariel PALACIOS Start: 03-21-2011 Cystoscopy Stanley LANDON Tonsillectomy Stanley PALACIOS Plan of Treatment Date Care Activity Detail Author Start: 09-01-2033 Tetanus vaccination [facility]ETANUS [facility] Start: 10-17-2024 Influenza vaccination Influenz a Vaccine (Season Ended) [facility] Start: 07-06-2024 End: 07-06-2024 Patient encounter procedure 07/06/2024 9:45 AM EDT Office Visit [facility] [address] [place] [address] Preet Wilcox DPM [address] [place] [address] [facility] Comment on above: Arrived Start: 10-18-2023 Influenza vaccination INFLUENZ A VACCINE (#1) [facility] Start: 03-31-2023 Screening for malign ant neoplasm of colon [facility] Start: 10-17-2022 COVID-19 VACCINE ( season) COVID-19 VACCINE ( season) [facility] Start: 03-31-2014 Screening for malign ant neoplasm of colon COLORECTAL CANCER SCREENING DISCUSSION [facility] Start: 09-25-2001 Prostate specific an tigen measurement PROSTATE CANCER SCREENING DISCUSSION [facility] Start: 09-25-2001 Zoster vaccine hzv l savanah for subcutaneous use ZOSTER (SHINGLES) VACCINE (1 of 2) [facility] Start: 1991 Lipid panel LIPID SCREENING [facility] Start: 1950 Hepatitis C screening HEPATITI S C VIRUS SCREENING [facility] Start: 1950 Screening for malign ant neoplasm of colon [facility] Start: 1950 Thyroid stimulating hormone measurement TSH [facility] Comprehensive metabo lic 1999 panel - Serum or Plasma [facility] Comprehensive metabo lic 1999 panel - Serum or Plasma [facility] Immunizations Immunization Date Immunization Notes Care Provider Fa [facility] 09-02-2023 tetanus toxoid, redu fercho diphtheria toxoid, and acellular pertussis vaccine, adsorbed Damir Li DO Work Phone: [facility] 09-24-2022 Prevnar 20 Damir Li Other [facility] 04-23-2020 SARS-CoV-2 (COVID-19 ) mRNA BNT-162b2 vax Stanley PALACIOS [facility] [place] 04-16-2020 SARS-CoV-2 (COVID-19 ) Ad26 vaccine, recombinant Stanley PALACIOS [facility] Comment on above: Result Comment: dupl icate 04-16-2020 SARS-CoV-2 (COVID-19 ) mRNA-1273 vaccine Stanley PALACIOS [facility] 09-29-2019 pneumococcal polysaccharide vaccine, 23 valent Damir Li Other [facility] 08-01-2019 pneumococcal conjuga te vaccine, 13 valent Stanley PALACIOS [facility] 02-11-2018 pneumococcal conjuga te vaccine, 13 valent Stanley PALACIOS [facility] 03-04-2013 pneumococcal polysaccharide vaccine, 23 valent Stanley PALACIOS [facility] 03-04-2013 tetanus toxoid, redu fercho diphtheria toxoid, and acellular pertussis vaccine, adsorbed Stanley PALACIOS [facility] 02-16-2002 tetanus toxoid, redu fercho diphtheria toxoid, and acellular pertussis vaccine, adsorbed Stanley PALACIOS [facility] Payers Date Payer Category Payer [place] ([place] Care) [place] [facility] [id number] 2022 Medicare [id number] 1959 Unknown [id number] 1951 Unknown [id number]. [id number] 1951 Unknown [id number] [id number]. 2.593 1951 Unknown [id number] [id number]. 2.593 1951 Unknown [id number] [id number]. 2.593 1951 Unknown [id number] [id number]. 2.983 1951 Unknown [id number] [id number]. 2.1259 1951 Unknown [id number] [id number]. 2.727 1951 Unknown [id number] [id number]. 2.727 1951 Unknown [id number] [id number]. 2.727 1951 Unknown [id number] [id number]. 2.727 1950 Unknown [id number]. 2.727 Social History Date Type Detail Facility Start: 04-15-2021 End: 07-25-2024 Tobacco smoking status Never smoked tobacco (finding) [facility] Tobacco smoking status Never [facility] Start: 05-19-2023 End: 07-06-2024 Sex Assigned At Male [facility] Start: 05-19-2023 End: 09-02-2023 Tobacco use and exposure Smokeless tobacco non-user [facility] Start: 09-02-2023 End: 07-06-2024 Alcoholic beverage intake Ex-drinker (finding) [facility] Start: 1950 Sex assigned at Not on file A [facility] Start: 1950 Sex Assigned At Male [facility] Start: 10-17-2023 [facility] Start: 05-19-2023 End: 07-06-2024 Alcoholic beverage intake [facility] Start: 05-13-2023 Gender identity Identifies as male gender (finding) [facility] Sexual Orientation [facility] Start: 09-28-2018 Sex Male (finding) [facility] Functional Status Date Assessment Result Facility 07-20-2023 Functional Status N/A [facility] 05-30-2022 Functional Status N/A [facility] 04-18-2022 Functional Status N/A [facility] Clinical Notes 04-18-2022 to 07-25-2024 Preet Wilcox DPM - 07/06/2024 9:45 AM Taylor Webster RN - 09/02/2023 10:37 PM Taylor Webster RN - 09/02/2023 10:37 PM JULEE Colin - 09/02/2023 10:32 PM EDT Note Date & Type Note Facility 07-25-2024 Hospital Discharge instructions Patient Education 07/25/2024 09:31:54 Prostate Cancer Screening Prostate Cancer Screening Prostate [...] treatment? Where to find more information The [place] [employer]: www.cancer.org [place] [employer] Association: www.auanet.org Contact a health care [...] provider. Document Revised: 07/29/2021 Document Reviewed: 07/29/2021 [employer] Patient Education 2023 [email or web address]. Follow Up Care 07/20/2023 10:29:11 With:RAMÓN HARDING, Stanley Jama, URL Address: [facility] [address] , [place] [address]- When: Unknown [facility] 07-25-2024 Note Patient Education Oncology Prostate Cancer Screening Prostate [...] recommendations. In general, screening is recommended if: ??? You are age 50 to 70 and [...] have a 10- to 15-year life expectancy. ??? You are younger than age 50, and [...] In general, screening is not recommended if: ??? You are younger than age 40. ??? You are between the ages of 40 and 49 and you have no risk factors. ??? You are 70 years of age or [...] high PSA levels may be caused by: ??? Prostate cancer. ??? An enlarged prostate that is not caused by cancer (benign prostatic hyperplasia, or BPH). This condition is very common in older men. ??? A prostate gland infection (prostatitis) or urinary tract infection. ??? Certain medicines such as male hormones (like [...] you may need more tests, such as: ??? A physical exam to check the size of your prostate gland, if not done as part of screening. ??? Blood and imaging tests. ??? A procedure to remove tissue samples from your prostate gland for testing (biopsy). This is the only way to know for certain if you have prostate cancer. What are the benefits of prostate cancer screening? Screening can help to identify cancer at an early stage, before symptoms start and when the cancer can be treated more easily. ??? There is a small chance that screening [...] Questions to ask your health care provider ??? When should I start prostate cancer screening? What is my risk for prostate cancer? How often do I need screening? What type of screening tests do I need? How do I get my test results? What do my results mean? Do I need treatment? Where to find more information ??? The [place] [employer]: www.cancer.org ??? [place] [employer] Association: www.auanet.org Contact a health care provider if: ??? You have difficulty urinating. ??? You have pain when you urinate or ejaculate. ??? You have blood in your urine or semen. ??? You have pain in your back or in the area of your prostate. Summary ??? Prostate cancer is a common type of cancer in men. The prostate gland (more content not included)... [facility] 07-06-2024 History of Present illness Narrative Images from the original note were not included. Subjective Patient ID: Kehinde Barber is a 73 y.o. male who presents for Callouses ( Chantel Barber is a 72 y.o. male who presents for Right Foot Callouses. SS: [id number]). HPI Established patient returns to clinic with concern of the painful callus on the right foot. This has been bothering him for a few months. He has been trying to use a pumice stone to reduce the thickness but unfortunately it continues to deteriorate and give him significant pain especially with walking, standing. He does have ammonium lactate cream at home that he has been applying as well. Review of Systems Constitutional: Negative for activity change and appetite change. Respiratory: Negative for chest tightness and shortness of breath. Cardiovascular: Negative for chest pain. Musculoskeletal: Positive for arthralgias and gait problem. Skin: Negative for color change and wound. Neurological: Negative for weakness and numbness. Psychiatric/Behavioral: Negative for agitation and behavioral problems. Hematological: Does not bruise/bleed easily. Endocrine: Negative for cold intolerance and heat intolerance. Allergic/Immunologic: Negative for immunocompromised state. Past medical History Past Medical History: Diagnosis Date Asthma 30 years ago GERD (gastroesophageal reflux disease) 20 years ago Medications Current Outpatient Medications: levothyroxine (Synthroid, Levoxyl) 112 MCG tablet, TAKE 1 TABLET BY MOUTH ONCE DAILY IN THE MORNING ON AN EMPTY STOMACH, Disp: , Rfl: methylPREDNISolone (Medrol Dospak) 4 MG tablets, Take as directed on package., Disp: 21 tablet, Rfl: 0 omeprazole (PriLOSEC) [address] capsule, TAKE 1 CAPSULE BY MOUTH ONCE DAILY ON AN EMPTY STOMACH FOLLOWED IN 30 MINUTES BY BREAKFAST, Disp: , Rfl: tamsulosin (Flomax) 0.4 MG 24 hr capsule, Take 0.4 mg by mouth Daily, Disp: , Rfl: Allergies Cattle epithelium, Dog epithelium, and Dust mite extract Past Surgical History Past Surgical History: Procedure Laterality Date PROSTATE SURGERY 2009 Family History Family History Problem Relation Name Age of Onset Cancer Mother Elsie Barber Hypertension Father Juan Barber Stroke Father Juan Barber Objective Physical Exam HENT: Head: Normocephalic and atraumatic. Cardiovascular: Pulses: Normal pulses. Pulmonary: Effort: Pulmonary effort is normal. No respiratory distress. Abdominal: Palpations: There is no mass. Musculoskeletal: Cervical back: No rigidity. Comments: Weightbearing examination reveals planus morphology. He is able to perform a double heel rise test which brings the heel to neutral. Skin: Capillary Refill: Capillary refill takes less than 2 seconds. Findings: No rash. Comments: Hyperkeratotic tissue with central core noted plantar 5th metatarsal base, right foot. Skin lines passed through the lesion. No pinpoint, thrombosed capillaries. Tenderness noted with direct palpation. Neurological: Mental Status: He is alert. Comments: No loss of protective sensation, gross sensation intact. Psychiatric: Mood and Affect: Mood normal. Behavior: Behavior normal. Assessment/Plan ICD-10-CM 1. Porokeratosis Q82.8 2. Right foot pain M79.671 Patient was examined and evaluated. He has a lesion consistent with porokeratosis. I discussed causes and treatment options for porokeratotic lesions. Lesion is symptomatic and on an anatomic area that is prone to irritation. I have debrided the porokeratotic lesion sharply with a sterile #15 blade and enucleated the lesion until pinpoint bleeding was encountered. The base of the lesion was cauterized with a single 30 second application of 10% phenol. Lesion was packed with 55% salicylic acid and an occlusive offloading dressing was applied. Patient has a ammonium lactate cream at home and I also recommend continued use of the pumice stone regularly. Follow up as needed. This note was created with the assistance of a speech recognition program. While intending to generate a timely document that accurately reflects the content of the visit, no guarantee can be provided that every grammatical or spelling mistake has been or will be identified or corrected. Thank you for your understanding. Preet Wilcox DPM documented in this encounter [facility] 09-02-2023 Emergency department Note Superficial laceration pavon, no active bleeding. Cleansed with hibicleanse and water, bacitracin applied. Dressed with telfa and kerlix. [facility] 09-02-2023 Emergency department Note Superficial laceration pavon, no active bleeding. Cleansed with hibicleanse and water, bacitracin applied. Dressed with telfa and kerlix. Images from the original note were not included. Emergency Department Report [facility] EMERGENCY DEPARTMENT Service Date:.09/02/23 PCP: No primary [...] (195 lb) Orders/Results: Orders Placed This Encounter Kckeerl-Kwqwfh-Chlkm Pertussis (BOOSTRIX) syringe 0.5 mL Bacitracin ointment [...] with above information. . . Willie Lau, ERASMO-WOOD TYPE FINISHER 09/02/23 2237 Patient placed back in waiting room until a room is available. Patient advised to notify registration with any changes or worsening condition/symptoms. Patient verbalized understanding and returned to waiting area in stable condition. documented in this encounter [facility] 09-02-2023 Physician Emergency department Note Images from the original note were not included. Emergency Department Report [facility] EMERGENCY DEPARTMENT Service Date:.09/02/23 PCP: No primary [...] (195 lb) Orders/Results: Orders Placed This Encounter Xygwksb-Yqcmux-Yicfu Pertussis (BOOSTRIX) syringe 0.5 mL Bacitracin ointment [...] with above information. . . Willie Lau APRN-WOOD TYPE FINISHER 09/02/23 2237 [facility] 09-02-2023 Emergency department Note Patient placed back in waiting room until a room is available. Patient advised to notify registration with any changes or worsening condition/symptoms. Patient verbalized understanding and returned to waiting area in stable condition. [facility] 07-20-2023 Hospital Discharge instructions Patient Education 07/20/2023 [...] treatment? Where to find more information The [place] [employer]: www.cancer.org [place] [employer] Association: www.auanet.org Contact a health care [...] provider. Document Revised: 07/29/2021 Document Reviewed: 07/29/2021 [employer] Patient Education 2022 [email or web address]. Follow Up Care 05/30/2022 10:19:40 With:RAMÓN HARDING, Stanley Jama, URL Address: [facility] [address], [place] [address]- [phone] When: Unknown Comments:repeat PSA in 6 mos (no OV), f/u in 1 year w/ repeat PSA [facility] 03-23-2023 Evaluation note Encounter Date Diagnosis Assessment Notes Mar, Benign prostatic hyperplasia with lower urinary tract symptoms (ICD-10 - N40.1) [facility] Other 09-19-2023 Evaluation note* Encounter Date Diagnosis [...] and smoke Begin Priyanka and Flonase NS [facility] Other 08-09-2023 Evaluation note* Encounter Date Diagnosis [...] High risk medication use (ICD-10 - Z79.899) [facility] Other 04-14-2023 Hospital Discharge instructions Patient Education [...] urethra. Follow these instructions at home: Take yrth-vrb-eybftmw and prescription medicines only as told by [...] 02/02/2006 Document Revised: 12/28/2018 Document Reviewed: 03/09/2017 [employer] Patient Education 2019 [employer] Follow Up Care 04/18/2022 09:15:57 With:RAMÓN HARDING, Stanley Jama, URL Address: [facility] [address] , [place] [address]- [phone] When:Within 1 Year(s) Comments:f/u in 1 year with PSA/LUCIE [facility] 03-03-2023 Hospital Discharge instructions Patient Education 04/18/2022 [...] urethra. Follow these instructions at home: Take lpmz-dxs-jdphxeb and prescription medicines only as told by [...] 02/02/2006 Document Revised: 12/28/2018 Document Reviewed: 03/09/2017 [employer] Patient Education 2020 [employer] Follow Up Care 04/15/2021 09:35:03 With:Stanley PALACIOS MD, URL Address: [address] [place] [address] [place] [address]- When: Unknown [facility] evaluation + Plan note Future Appointments Appointment Date:05/06/2022 08:30:00 AM Scheduled Provider: Location:[facility] Appointment Type:Urology CALL PAT FT Appointment Date:05/13/2022 10:00:00 AM Scheduled Provider: Location:[facility] Appointment Type:Urology FT Appointment Date:05/30/2022 09:15:00 AM Scheduled Provider:Stanley PALACIOS MD Location:[facility] Appointment Type:URO Office Visit [facility] evaluation + Plan note Future Appointments Appointment Date:06/05/2023 08:15:00 AM Scheduled Provider:Stanley PALACIOS MD Location:[facility] Appointment Type:URO Office Visit Diagnostic Tests Pending * PSA Total 05/30/22 [facility] evaluation + Plan note Future Appointments Appointment Date:07/25/2024 08:45:00 AM Scheduled Provider:Stanley PALACIOS MD Location:[facility] Appointment Type:URO Office Visit Diagnostic Tests Pending * PSA Total 07/20/23 [facility] evaluation + Plan note Future Appointments Appointment Date:07/25/2024 09:00:00 AM Scheduled Provider:Stanley PALACIOS MD Location:[facility] Appointment Type:URO Office Visit [facility] evaluation + Plan note Future Appointments Appointment Date:07/17/2025 08:45:00 AM Scheduled Provider: Location:[facility] Appointment Type:URO Nurse Visit Appointment Date:07/24/2025 08:45:00 AM Scheduled Provider:Stanley PALACIOS MD Location:[facility] Appointment Type:URO Office Visit [facility] evaluation noteNo [email or web address] Other Evaluation note* Diagnosis Laceration of left lower extremity, initial encounter- Primary [facility] Diagnosis Onset Date Resolution Status Asthma acute Benign prostatic hyperplasia with lower urinary tract symptoms acute GERD (gastroesophageal reflux disease) acute Hypercholesterolemia acute Hypothyroid acute Peripheral polyneuropathy ac [place] Tinnitus acute Medicare annual wellness visit, subsequent noneactive [facility] Work Phone: Evaluation note* Diagnosis Onset Date Resolution Status Asthma acute Benign prostatic hyperplasia with lower urinary tract symptoms acute GERD (gastroesophageal reflux disease) acute Hypercholesterolemia acute Hypothyroid acute Peripheral polyneuropathy ac [place] Tinnitus acute Medicare annual wellness visit, subsequent noneactive Congestion of nasal sinus no neactive [facility] Work Phone: Evaluation note* Diagnosis Porokeratosis- Primary Other specified congenital anomaly of skin Right foot pain Pain in soft tissues of limb documented in this encounter [facility] HealthcareEvaluation note* Diagnosis Onset Date Resolution Status Admit Date Asthma acute September 27 8:13am Benign prostatic hyperplasia with lower urinary tract symptoms acute Sep 8:13am GERD (gastroesophageal reflu x disease) acute September 27 8:13am Hypercholesterolemia acute 2024 8:13am Hypothyroid acute September 27, 2024 8:13am Peripheral polyneuropathy acute September 27, 2024 8:13am Screening PSA (prostate spec ific antigen) acute September 27 8:13am Tinnitus acute September 27 8:13am Medicare annual wellness vis it, subsequent noneactive September 27 8:13am [facility] Work Phone: History general Narrative - [...] WITH CYSTOSCOPY Hospitalization History see surgical history [facility] Other Hospital course Narrative No data available for this section [facility] Discharge instructions* Attachments The following attachments cannot be sent through Care Everywhere. * Lacerations: Open (Yakut) [facility] No data available for this section [facility] progress note No data available for this section [facility] reason for referral (narrative)No reason for referral information availableCity [facility] Work Phone: Summary Purpose Family History Relationship Condition Age [...] wellness visit, subsequent Congestion of nasal sinus Chief Complaint Admit Date wellness September 27, 2024 8: 13am Reason for Visit Admit Date Asthma September 27, 2024 8: 13am Benign prostatic hyperplasia with lower urinary tract symptoms September 27, 2024 8:13am GERD (gastroesophageal reflux disease) A ug2024 8:13am Hypercholesterolemia September 27, 2024 8 :13am Hypothyroid September 27, 2024 8: 13am Peripheral polyneuropathy September 27, 2 025 8:13am Screening PSA (prostate specific antigen ) September 27, 2024 8:13am Tinnitus September 27, 2024 8: 13am Medicare annual wellness visit, subseque nt September 27, 2024 8:13am Additional Source Comments (unrecognized sect ion and content) No Status Records FoundNo Status Records FoundNo Status Records FoundNo Status Records FoundNo Status Records Found INFORMATION SOURCE (unrecogn ized section and content) DATE CREATED AUTHOR 04/18/2022 [facility] DATE CREATED AUTHOR AUTHOR'S ORGANIZ ATION 09/09/2023 [facility] DATE CREATED AUTHOR AUTHOR'S ORGANIZ ATION 07/13/2024 [facility] EPIC DATE CREATED AUTHOR AUTHOR'S ORGANIZ ATION 07/25/2024 [facility] DATE CREATED AUTHOR AUTHOR'S ORGANIZ ATION 07/27/2024 [facility] Patient Care team informatio n (unrecognized [...] October 17, 2023 End: October 17, 2023 Medical Billing Coder Relationship Specialty Start Date End Date Damir Li DO [address] [place] [id number] PCP - General Internal Medicine 09/02/23 Team Status: Active Member Role Status Dates Damir Li DO Primary Care Provider Active Start: July 15, 2023 Stanley Palacios MD Attending Provider Active St art: July 15, 2023 Medical Billing Coder Relationship Specialty Start Date End Date Damir Li DO [address] [place] [address] PCP - General Internal Medicine 07/06/24 Medical Billing Coder Relationship Specialty Start Date End Date Damir Li DO [address] [facility] [place] [id number] PCP - General Internal Medicine 07/06/24 Team Status: Inactive Member Role Status Dates Damir Li DO Primary Care Provider Active Start: September 27, 2024 End: September 27, 2024 Damir Li DO Attending Provider Active Sta rt: September 27, 2024 End: September 27, 2024 REASON FOR VISIT (unrecogniz ed section and content) Reason Comments Laceration Patient to ED with l aceration from a nail sticking out of board to left leg. Bleeding is controlled at this time. Patient is unsure if he is UTD on tetanus Reason Comments Callouses Chantel Barber is a 72 y.o. male who presents for Right Foot Callouses. SS: [id number] Scheduled Active and Recently Administ ered Medications [...] BE BASED ON THE PRIMARY CLINICAL RECORDS. [employer] provides no warranty or guarantee of the accuracy or completeness of information in this document.
[2024-09-28 07:18] LABS: Hematocrit 43.5 % (42.0-54.0); Hemoglobin 14.1 g/dL (14.0-18.0); Immature Granulocytes Abs Auto 0.04 10^3/uL (0.00-0.03); Immature Granulocytes Pct Auto 0.7 % (0.0-0.5); Lymphocytes Absolute Auto 1.4 10^3/uL (1.2-3.8); Mean Corpuscular HGB Conc 32.4 g/dL (29.9-35.2); Mean Corpuscular Hemoglobin 29.6 pg (25.9-34.0); Mean Corpuscular Volume 91.2 fL (80.0-94.0); Platelet Count 225 10^3/uL (150-450); Red Blood Count 4.77 10^6/uL (4.70-6.10); White Blood Count 5.9 10^3/uL (4.0-11.0)
[2024-09-28 08:19] LABS: Alanine Aminotransferase 45 U/L (16-63); Albumin Globulin Ratio 1.0; Albumin Level 3.7 g/dL (3.4-5.0); Alkaline Phosphatase 72 U/L (46-116); Anion Gap 14.8; Aspartate Amino Transferase 22 U/L (15-37); Blood Urea Nitrogen 20.0 mg/dL (7.0-18.0); Calcium 8.9 mg/dL (8.5-10.1); Carbon Dioxide 27.3 mmol/L (21.0-32.0); Chloride 105 mmol/L (98-107); Cholesterol 185 mg/dL (<=200); Estimated GFR (African America >60 (>=60 mL/min/1.73m^2); Estimated GFR (Non-African Ame >60 (>=60 mL/min/1.73m^2); Globulin 3.6 g/dL; Glucose 109 mg/dL (74-106); HDL Cholesterol 33 mg/dL (40-60); Potassium 4.1 mmol/L (3.5-5.1); Sodium 143 mmol/L (136-145); Thyroid Stimulating Hormone 1.526 uIU/mL (0.358-3.740); Total Protein 7.3 g/dL (6.4-8.2); Triglycerides 181 mg/dL (<=150); VLDL CHOLESTEROL 36.2 mg/dL
== END 2024-09-28 06:57 | disposition home or self-care (01) ==
LOC: LAB 06:57
PROVIDERS: PCP Internal Medicine; Visit Provider Internal Medicine
DX: E78.00 Pure hypercholesterolemia, unspecified (principal); E06.3 Autoimmune thyroiditis; Z79.899 Other long term (current) drug therapy
CPT/HCPCS: 36415; 80053; 80061; 84443; 85025